=== PATIENT | male | born 1930 | race Caucasian/White ===

== ENCOUNTER 2016-03-22 22:54 | Emergency (ER) | payer MEDICARE ==
[~2016-03-22 22:54] MED LIST: ASPI81CH32 PO; ATOR1TAB18 PO; COUM2.5T11 PO; COUM2TAB10 PO; CRES40TA PO; DIOV80TA3 PO; DONE5TAB17 PO; ESOM1CAP5 PO; GLUCTAB6 PO; ISOS30TA4 PO; LASI40TA PO; MEMA1TAB2 PO; NEXI1CAP4 PO; OMEP40CA2 PO; PARO40TA PO; VITA100037 PO
[2016-03-23] MEDS ORDERED: OXYMETAZOLINE NASAL SPRAY (AFRIN) As Ordered ONE (01:16)
[2016-03-23] MEDS ORDERED: PHYTONADIONE 10MG/ML INJECTION (J3430) As Ordered ONE (01:34)
--- NOTE | 2016-03-23 03:03 | EDDOCDS ---
Physician Documentation [facility] Name: Ezequiel Dudley Age: 85 yrs Sex: Male : 1930 Arrival Date: 03/22/2016 Time: 22:54 Bed 12 Private MD: Yana Burris E Disposition: 03/23/16 02:44 Discharged to Home/Self Care. Impression: Epistaxis. - Condition is Stable. - Medication Reconciliation, Local Pharmacy Hours form. - Follow up: Yana Burris; When: 1 - 2 days; Reason: Recheck today's complaints. - Problem is new. - Symptoms have improved. - Notes: instill afrin into nasal gauze every 4 hours. withold coumadin for next day. Historical: - Allergies: No known drug Allergies; - Home Meds: 1. aspirin 81 mg Oral tab 1 tab once daily 2. Diovan 160 mg Oral tab 1 tab 2 times per day 3. Coumadin 2.5 mg oral tab 1.5 tab once daily varies depending on INR 4. Zocor 80 mg Oral tab daily 5. paroxetine HCl 40 mg Oral tab 1 tab once daily 6. Nexium 40 mg Oral cpDR 1 cap once daily 7. memantine 10 mg oral tab 1 tab daily 8. Isordil 30 mg Oral tab 1 tab daily 9. glucosamine-chondroitin 1500-1200mg oral tab twice a day 10. donepezil 5 mg oral TbDL 1 tab once daily 11. Iron CR Oral daily - PMHx: Atrial Fib; Dementia; GERD; Hypercholesterolemia; Hypertension; Pacemaker; blind in right eye; - PSHx: Nephrectomy- Right; HERNIA REPAIR; TURP; Knee Arthroplasty, Right; Cataract Surgery- Bilateral; Stents, Coronary; Colon Resection; Pacemaker Insertion; - Social history: Smoking status: Patient states former smoker of tobacco. No barriers to communication noted, The patient speaks fluent Pashto. - Family history: Not pertinent. - : The pt / caregiver states he / she is on anticoagulants: coumadin. Home medication list is obtained from the patient. - Exposure Risk Screening:: None identified. Vital Signs: 03/22 22:56 BP 158 / 89; Pulse 60; Resp 18 S; Temp 96.5(T); Pulse Ox 97% on R/A; Weight 77.56 kg / gr2 170.99 lbs (R); Height 5 ft. 7 in. (170.18 cm) (R); Pain 2/10; 03/23 03:00 BP 154 / 79; Pulse 67; Resp 18; Temp 98.6(T); Pulse Ox 94% on R/A; Pain 0/10; mlc 03/22 22:56 Body Mass Index 26.78 (77.56 kg, 170.18 cm) gr2 MDM: 03/22 23:03 Misc. Nursing Order ordered. [facility] 03/23 01:25 IV Saline Lock ordered. [facility] 01:25 Phytonadione 5 mg IVP once ordered. [facility] 01:38 Financial registration complete. [facility] Administered Medications: 01:45 Drug: Phytonadione 5 mg [phytonadione (vitamin K1) 10 mg/mL injection solution (0.5 mlc mL)] Route: IVP; Site: left antecubital; Signatures: Smith Alves DO DO [facility] Beatrice TolentinoRN RN [facility] [place] Radha Ahn [facility]
--- NOTE | 2016-03-23 03:03 | EDDOCDS ---
Nurse's Notes [facility] Name: Ezequiel Dudley Age: 85 yrs Sex: Male : 1930 Arrival Date: 03/22/2016 Time: 22:54 Bed 12 Private MD: Yana Burris E Diagnosis: Epistaxis Presentation: 03/22 23:05 Presenting complaint: Patient states: nose bleed since 21:00 this evening. pt has had a mlc cold symptoms recently, pt blew nose and nose started bleeding. no bleeding at this time. Adult Sepsis Screening: The patient does not have new or worsening altered mentation. Patient's respiratory rate is less than 22. Systolic blood pressure is greater than 100. Patient has a qSOFA score of 0- Negative Sepsis Screen. Suicide/Homicide risk assessment- the patient denies having any suicidal and/or homicidal ideations and does not present with any other emotional, behavioral or mental health complaints. Status: Patient is not a services tech or dependent. Transition of care: patient was not received from another setting of care. 23:05 Acuity: JIGAR Level 3 [facility] 23:05 Method Of Arrival: Walkin/Carried/Asstd mlc Triage Assessment: 23:15 General: Appears in no apparent distress, comfortable, Behavior is cooperative. Pain: mlc Denies pain. The patient is triaged at the bedside. See Assessment in Nurses Notes section of ED record. Neurological: Level of Consciousness is awake, obeys commands, Oriented to person, place. EENT: Nares with bleeding noted on left nasal clamp applied. Respiratory: Airway is patent Respiratory effort is even, unlabored, Respiratory pattern is regular. Derm: Skin is normal. Historical: - Allergies: No known drug Allergies; - Home Meds: 1. aspirin 81 mg Oral tab 1 tab once daily 2. Diovan 160 mg Oral tab 1 tab 2 times per day 3. Coumadin 2.5 mg oral tab 1.5 tab once daily varies depending on INR 4. Zocor 80 mg Oral tab daily 5. paroxetine HCl 40 mg Oral tab 1 tab once daily 6. Nexium 40 mg Oral cpDR 1 cap once daily 7. memantine 10 mg oral tab 1 tab daily 8. Isordil 30 mg Oral tab 1 tab daily 9. glucosamine-chondroitin 1500-1200mg oral tab twice a day 10. donepezil 5 mg oral TbDL 1 tab once daily 11. Iron CR Oral daily - PMHx: Atrial Fib; Dementia; GERD; Hypercholesterolemia; Hypertension; Pacemaker; blind in right eye; - PSHx: Nephrectomy- Right; HERNIA REPAIR; TURP; Knee Arthroplasty, Right; Cataract Surgery- Bilateral; Stents, Coronary; Colon Resection; Pacemaker Insertion; - Social history: Smoking status: Patient states former smoker of tobacco. No barriers to communication noted, The patient speaks fluent Brazilian. - Family history: Not pertinent. - : The pt / caregiver states he / she is on anticoagulants: coumadin. Home medication list is obtained from the patient. - Exposure Risk Screening:: None identified. Screenin:16 Screening information is obtained from the patient. Fall risk: At risk due to uses mlc walker. Assistance ADL's: requires no assistance with activities of daily living. Abuse/DV Screen: The patient / caregiver reports he/she is: not in a situation that causes fear, pain or injury. Nutritional screening: No deficits noted. Advance Directives: Currently, there is a health care proxy, Brooklyn Dudley, . There is an active DNR order but there is no copy available at this time. There is no living will. There is an active Power of Insurance Licensing Supervisor, Brooklyn Dudley, . home support is adequate. Assessment: 23:20 General: see triage assessment. [facility] 23:20 General: Appears in no apparent distress, comfortable, Behavior is cooperative, nose mlc clamp in place. pt resting in bed. resp easy//unlabored. pt offers no complaints. . 03/23 00:20 Reassessment: Patient appears in no apparent distress at this time. pt being wheeled to [facility] the bathroom, tolerated well. . 01:25 Reassessment: Patient appears in no apparent distress at this time. pt resting in bed, mlc resp easy/unlabored. Dr. Alves at bedside. 01:45 Reassessment: Patient appears in no apparent distress at this time. pt medicated per [facility] order. pt offers no complaints. nose clamp in place. 03:00 General: Appears in no apparent distress, comfortable, Behavior is cooperative. Pain: mlc Denies pain. Neurological: Level of Consciousness is awake, alert, Oriented to person, place, time. Respiratory: Airway is patent Respiratory effort is even, unlabored, Respiratory pattern is regular. Derm: Skin is pink, warm & dry. Vital Signs: 03/22 22:56 BP 158 / 89; Pulse 60; Resp 18 S; Temp 96.5(T); Pulse Ox 97% on R/A; Weight 77.56 kg gr2 (R); Height 5 ft. 7 in. (170.18 cm) (R); Pain 2/10; 03/23 03:00 BP 154 / 79; Pulse 67; Resp 18; Temp 98.6(T); Pulse Ox 94% on R/A; Pain 0/10; mlc 03/22 22:56 Body Mass Index 26.78 (77.56 kg, 170.18 cm) gr2 Vitals: 03/22 22:56 Log In Time: March 22, 2016 at 22:56. RN notified that patient meets Red Flag gr2 criteria. ED Course: 22:55 Patient visited by Pilar Gray. gr2 22:55 Patient moved to Waiting gr2 22:56 Yana Burris is Private Physician. gr2 23:00 Patient visited by Pilar Gray. gr2 23:00 Patient moved to Pre RCE gr2 23:01 Beatrice Tolentino RN is Primary Nurse. cz 23:01 Patient moved to 12 cz 23:02 Smith Alves DO is Attending Physician. cs11 23:02 Patient visited by Smith Alves DO. cs11 23:07 Triage Initiated mlc 23:18 Patient visited by Beatrice Tolentino RN. mlc 03/23 00:20 Patient visited by Beatrice Tolentino RN. mlc 01:23 Patient visited by Tangela Real PCA. edgar 01:26 Patient visited by Beatrice Tolentino RN. mlc 01:45 The patient / caregiver is instructed regarding the plan of care and ED course. mlc 01:45 Inserted saline lock: 20 gauge in left antecubital area The patient tolerated the mlc procedure well. 01:46 Patient visited by Beatrice Tolentino RN. mlc 02:43 Yana Burris is Referral Physician. cs11 02:45 Discontinued IV lock intact, bleeding controlled, pressure dressing applied, No mlc redness/swelling at site. Assist provider with nosebleed control using Afrin sprays, Bleeding from left nare. Set up for procedure. Performed by Smith Alves DO Bleeding stopped. Patient tolerated well. Administered Medications: 01:45 Drug: Phytonadione 5 mg [phytonadione (vitamin K1) 10 mg/mL injection solution (0.5 mlc mL)] Route: IVP; Site: left antecubital; Order Results: There are currently no results for this order. Outcome: :44 Discharge ordered by Provider. cs11 02:45 Discharge Assessment: Patient awake, alert and oriented x 3. No cognitive and/or mlc functional deficits noted. Patient verbalized understanding of disposition instructions. patient administered narcotics - no. The following High Risk Discharge criteria are identified: None. Discharged to home via wheelchair, with family. Condition: good Condition: stable. Discharge instructions given to patient, Instructed on discharge instructions, follow up and referral plans. medication usage, Demonstrated understanding of instructions, Pt was receptive of discharge instructions/ teaching. No special radiology studies were completed. Property sent home with patient. 03:02 Patient left the ED. mlc Signatures: Dilip Felder, RN Tangela Paris PCA PCA dre Schiff, Craig, DO DO cs11 Pilar Gray gr2 Beatrice Tolentino RN RN mlc MTDD
--- NOTE | 2016-03-25 04:03 | EDDOCDS ---
Physician Documentation [facility] Name: Ezequiel Dudley Age: 85 yrs Sex: Male : 1930 Arrival Date: 03/22/2016 Time: 22:54 Bed 12 Private MD: Yana Burris E Disposition: 03/23/16 02:44 Discharged to Home/Self Care. Impression: Epistaxis. - Condition is Stable. - Medication Reconciliation, Local Pharmacy Hours form. - Follow up: Yana Burris; When: 1 - 2 days; Reason: Recheck today's complaints. - Problem is new. - Symptoms have improved. - Notes: instill afrin into nasal gauze every 4 hours. withold coumadin for next day. Historical: - Allergies: No known drug Allergies; - Home Meds: 1. aspirin 81 mg Oral tab 1 tab once daily 2. Diovan 160 mg Oral tab 1 tab 2 times per day 3. Coumadin 2.5 mg oral tab 1.5 tab once daily varies depending on INR 4. Zocor 80 mg Oral tab daily 5. paroxetine HCl 40 mg Oral tab 1 tab once daily 6. Nexium 40 mg Oral cpDR 1 cap once daily 7. memantine 10 mg oral tab 1 tab daily 8. Isordil 30 mg Oral tab 1 tab daily 9. glucosamine-chondroitin 1500-1200mg oral tab twice a day 10. donepezil 5 mg oral TbDL 1 tab once daily 11. Iron CR Oral daily - PMHx: Atrial Fib; Dementia; GERD; Hypercholesterolemia; Hypertension; Pacemaker; blind in right eye; - PSHx: Nephrectomy- Right; HERNIA REPAIR; TURP; Knee Arthroplasty, Right; Cataract Surgery- Bilateral; Stents, Coronary; Colon Resection; Pacemaker Insertion; - Social history: Smoking status: Patient states former smoker of tobacco. No barriers to communication noted, The patient speaks fluent Lao. - Family history: Not pertinent. - : The pt / caregiver states he / she is on anticoagulants: coumadin. Home medication list is obtained from the patient. - Exposure Risk Screening:: None identified. Vital Signs: 03/22 22:56 BP 158 / 89; Pulse 60; Resp 18 S; Temp 96.5(T); Pulse Ox 97% on R/A; Weight 77.56 kg / gr2 170.99 lbs (R); Height 5 ft. 7 in. (170.18 cm) (R); Pain 2/10; 03/23 03:00 BP 154 / 79; Pulse 67; Resp 18; Temp 98.6(T); Pulse Ox 94% on R/A; Pain 0/10; mlc 03/22 22:56 Body Mass Index 26.78 (77.56 kg, 170.18 cm) gr2 MDM: 03/22 23:03 Misc. Nursing Order ordered. [facility] 03/23 01:25 IV Saline Lock ordered. [facility] 01:25 Phytonadione 5 mg IVP once ordered. [facility] 01:38 Financial registration complete. [facility] 03:36 [facility] Payment Agreement was scanned into [employer] and attached to record. [facility] 17:42 T-Sheet-- Draft Copy was scanned into [employer] and attached to record. klr Administered Medications: 01:45 Drug: Phytonadione 5 mg [phytonadione (vitamin K1) 10 mg/mL injection solution (0.5 mlc mL)] Route: IVP; Site: left antecubital; Signatures: Smith Alves, DO [facility] Beatrice TolentinoRN RN [facility] Radha Ahn [facility] Shantal Moe The chart was reviewed and I authenticate all verbal orders and agree with the evaluation and treatment provided.Attachments: 03:36 [facility] Payment Agreement [facility] 17:42 T-Sheet-- Draft Copy klr Chart Complete MTDD
--- NOTE | 2016-03-25 04:03 | EDDOCDS ---
Physician Documentation [facility] Name: Ezequiel Dudley Age: 85 yrs Sex: Male : 1930 Arrival Date: 03/22/2016 Time: 22:54 Bed 12 Private MD: Yana Burris E Disposition: 03/23/16 02:44 Discharged to Home/Self Care. Impression: Epistaxis. - Condition is Stable. - Medication Reconciliation, Local Pharmacy Hours form. - Follow up: Yana Burris; When: 1 - 2 days; Reason: Recheck today's complaints. - Problem is new. - Symptoms have improved. - Notes: instill afrin into nasal gauze every 4 hours. withold coumadin for next day. Historical: - Allergies: No known drug Allergies; - Home Meds: 1. aspirin 81 mg Oral tab 1 tab once daily 2. Diovan 160 mg Oral tab 1 tab 2 times per day 3. Coumadin 2.5 mg oral tab 1.5 tab once daily varies depending on INR 4. Zocor 80 mg Oral tab daily 5. paroxetine HCl 40 mg Oral tab 1 tab once daily 6. Nexium 40 mg Oral cpDR 1 cap once daily 7. memantine 10 mg oral tab 1 tab daily 8. Isordil 30 mg Oral tab 1 tab daily 9. glucosamine-chondroitin 1500-1200mg oral tab twice a day 10. donepezil 5 mg oral TbDL 1 tab once daily 11. Iron CR Oral daily - PMHx: Atrial Fib; Dementia; GERD; Hypercholesterolemia; Hypertension; Pacemaker; blind in right eye; - PSHx: Nephrectomy- Right; HERNIA REPAIR; TURP; Knee Arthroplasty, Right; Cataract Surgery- Bilateral; Stents, Coronary; Colon Resection; Pacemaker Insertion; - Social history: Smoking status: Patient states former smoker of tobacco. No barriers to communication noted, The patient speaks fluent Romanian. - Family history: Not pertinent. - : The pt / caregiver states he / she is on anticoagulants: coumadin. Home medication list is obtained from the patient. - Exposure Risk Screening:: None identified. Vital Signs: 03/22 22:56 BP 158 / 89; Pulse 60; Resp 18 S; Temp 96.5(T); Pulse Ox 97% on R/A; Weight 77.56 kg / gr2 170.99 lbs (R); Height 5 ft. 7 in. (170.18 cm) (R); Pain 2/10; 03/23 03:00 BP 154 / 79; Pulse 67; Resp 18; Temp 98.6(T); Pulse Ox 94% on R/A; Pain 0/10; mlc 03/22 22:56 Body Mass Index 26.78 (77.56 kg, 170.18 cm) gr2 MDM: 03/22 23:03 Misc. Nursing Order ordered. [facility] 03/23 01:25 IV Saline Lock ordered. [facility] 01:25 Phytonadione 5 mg IVP once ordered. [facility] 01:38 Financial registration complete. [facility] 03:36 [facility] Payment Agreement was scanned into [employer] and attached to record. [facility] 17:42 T-Sheet-- Draft Copy was scanned into [employer] and attached to record. klr Administered Medications: 01:45 Drug: Phytonadione 5 mg [phytonadione (vitamin K1) 10 mg/mL injection solution (0.5 mlc mL)] Route: IVP; Site: left antecubital; Signatures: Smith Alves, DO [facility] Beatrice TolentinoRN RN [facility] Radha Ahn [facility] Shantal Moe The chart was reviewed and I authenticate all verbal orders and agree with the evaluation and treatment provided.Attachments: 03:36 [facility] Payment Agreement [facility] 17:42 T-Sheet-- Draft Copy klr Chart Complete MTDD
--- NOTE | 2016-03-25 04:03 | EDDOCDS ---
Nurse's Notes [facility] Name: Ezequiel Dudley Age: 85 yrs Sex: Male : 1930 Arrival Date: 03/22/2016 Time: 22:54 Bed 12 Private MD: Yana Burris E Diagnosis: Epistaxis Presentation: 03/22 23:05 Presenting complaint: Patient states: nose bleed since 21:00 this evening. pt has had a mlc cold symptoms recently, pt blew nose and nose started bleeding. no bleeding at this time. Adult Sepsis Screening: The patient does not have new or worsening altered mentation. Patient's respiratory rate is less than 22. Systolic blood pressure is greater than 100. Patient has a qSOFA score of 0- Negative Sepsis Screen. Suicide/Homicide risk assessment- the patient denies having any suicidal and/or homicidal ideations and does not present with any other emotional, behavioral or mental health complaints. Status: Patient is not a hvac/r service technician or dependent. Transition of care: patient was not received from another setting of care. 23:05 Acuity: JIGAR Level 3 [facility] 23:05 Method Of Arrival: Walkin/Carried/Asstd mlc Triage Assessment: 23:15 General: Appears in no apparent distress, comfortable, Behavior is cooperative. Pain: mlc Denies pain. The patient is triaged at the bedside. See Assessment in Nurses Notes section of ED record. Neurological: Level of Consciousness is awake, obeys commands, Oriented to person, place. EENT: Nares with bleeding noted on left nasal clamp applied. Respiratory: Airway is patent Respiratory effort is even, unlabored, Respiratory pattern is regular. Derm: Skin is normal. Historical: - Allergies: No known drug Allergies; - Home Meds: 1. aspirin 81 mg Oral tab 1 tab once daily 2. Diovan 160 mg Oral tab 1 tab 2 times per day 3. Coumadin 2.5 mg oral tab 1.5 tab once daily varies depending on INR 4. Zocor 80 mg Oral tab daily 5. paroxetine HCl 40 mg Oral tab 1 tab once daily 6. Nexium 40 mg Oral cpDR 1 cap once daily 7. memantine 10 mg oral tab 1 tab daily 8. Isordil 30 mg Oral tab 1 tab daily 9. glucosamine-chondroitin 1500-1200mg oral tab twice a day 10. donepezil 5 mg oral TbDL 1 tab once daily 11. Iron CR Oral daily - PMHx: Atrial Fib; Dementia; GERD; Hypercholesterolemia; Hypertension; Pacemaker; blind in right eye; - PSHx: Nephrectomy- Right; HERNIA REPAIR; TURP; Knee Arthroplasty, Right; Cataract Surgery- Bilateral; Stents, Coronary; Colon Resection; Pacemaker Insertion; - Social history: Smoking status: Patient states former smoker of tobacco. No barriers to communication noted, The patient speaks fluent Emirati. - Family history: Not pertinent. - : The pt / caregiver states he / she is on anticoagulants: coumadin. Home medication list is obtained from the patient. - Exposure Risk Screening:: None identified. Screenin:16 Screening information is obtained from the patient. Fall risk: At risk due to uses mlc walker. Assistance ADL's: requires no assistance with activities of daily living. Abuse/DV Screen: The patient / caregiver reports he/she is: not in a situation that causes fear, pain or injury. Nutritional screening: No deficits noted. Advance Directives: Currently, there is a health care proxy, Brooklyn Dudley, . There is an active DNR order but there is no copy available at this time. There is no living will. There is an active Power of Digital Traffic Coordinator, Brooklyn Dudley, . home support is adequate. Assessment: 23:20 General: see triage assessment. [facility] 23:20 General: Appears in no apparent distress, comfortable, Behavior is cooperative, nose mlc clamp in place. pt resting in bed. resp easy//unlabored. pt offers no complaints. . 03/23 00:20 Reassessment: Patient appears in no apparent distress at this time. pt being wheeled to [facility] the bathroom, tolerated well. . 01:25 Reassessment: Patient appears in no apparent distress at this time. pt resting in bed, mlc resp easy/unlabored. Dr. Alves at bedside. 01:45 Reassessment: Patient appears in no apparent distress at this time. pt medicated per [facility] order. pt offers no complaints. nose clamp in place. 03:00 General: Appears in no apparent distress, comfortable, Behavior is cooperative. Pain: mlc Denies pain. Neurological: Level of Consciousness is awake, alert, Oriented to person, place, time. Respiratory: Airway is patent Respiratory effort is even, unlabored, Respiratory pattern is regular. Derm: Skin is pink, warm & dry. Vital Signs: 03/22 22:56 BP 158 / 89; Pulse 60; Resp 18 S; Temp 96.5(T); Pulse Ox 97% on R/A; Weight 77.56 kg gr2 (R); Height 5 ft. 7 in. (170.18 cm) (R); Pain 2/10; 03/23 03:00 BP 154 / 79; Pulse 67; Resp 18; Temp 98.6(T); Pulse Ox 94% on R/A; Pain 0/10; mlc 03/22 22:56 Body Mass Index 26.78 (77.56 kg, 170.18 cm) gr2 Vitals: 03/22 22:56 Log In Time: March 22, 2016 at 22:56. RN notified that patient meets Red Flag gr2 criteria. ED Course: 22:55 Patient visited by Pilar Gray. gr2 22:55 Patient moved to Waiting gr2 22:56 Yana Burris is Private Physician. gr2 23:00 Patient visited by Pilar Gray. gr2 23:00 Patient moved to Pre RCE gr2 23:01 Beatrice Tolentino RN is Primary Nurse. cz 23:01 Patient moved to 12 cz 23:02 Smith Alves DO is Attending Physician. cs11 23:02 Patient visited by Smith Alves DO. cs11 23:07 Triage Initiated mlc 23:18 Patient visited by Beatrice Tolentino RN. mlc 03/23 00:20 Patient visited by Beatrice Tolentino RN. mlc 01:23 Patient visited by Tangela Real PCA. edgar 01:26 Patient visited by Beatrice Tolentino RN. mlc 01:45 The patient / caregiver is instructed regarding the plan of care and ED course. mlc 01:45 Inserted saline lock: 20 gauge in left antecubital area The patient tolerated the mlc procedure well. 01:46 Patient visited by Beatrice Tolentino RN. mlc 02:43 Yana Burris is Referral Physician. cs11 02:45 Discontinued IV lock intact, bleeding controlled, pressure dressing applied, No mlc redness/swelling at site. Assist provider with nosebleed control using Afrin sprays, Bleeding from left nare. Set up for procedure. Performed by Smith Alves DO Bleeding stopped. Patient tolerated well. 03:36 [facility] Payment Agreement was scanned into [employer] and attached to record. [facility] 17:42 T-Sheet-- Draft Copy was scanned into [employer] and attached to record. [facility] Administered Medications: 01:45 Drug: Phytonadione 5 mg [phytonadione (vitamin K1) 10 mg/mL injection solution (0.5 mlc mL)] Route: IVP; Site: left antecubital; Order Results: There are currently no results for this order. Outcome: 02:44 Discharge ordered by Provider. 11 02:45 Discharge Assessment: Patient awake, alert and oriented x 3. No cognitive and/or mlc functional deficits noted. Patient verbalized understanding of disposition instructions. patient administered narcotics - no. The following High Risk Discharge criteria are identified: None. Discharged to home via wheelchair, with family. Condition: good Condition: stable. Discharge instructions given to patient, Instructed on discharge instructions, follow up and referral plans. medication usage, Demonstrated understanding of instructions, Pt was receptive of discharge instructions/ teaching. No special radiology studies were completed. Property sent home with patient. 03:02 Patient left the ED. mlc Signatures: Dilip Felder, RN RN Tangela Hernandez, STRAIGHTENING ROLL OPERATOR STRAIGHTENING ROLL OPERATOR Smith Gallo, DO DO cs11 Pilar Gray gr2 Beatrice Tolentino RN RN mlc Hook, Sandra Shantal Tomas Chart Complete MTDD
== END 2016-03-23 03:02 | disposition home or self-care (01) ==
LOC: M ED 22:54
DX: R04.0 Epistaxis (principal); I10 Essential (primary) hypertension; I48.91 Unspecified atrial fibrillation; K21.9 Gastro-esophageal reflux disease without esophagitis; E78.00 Pure hypercholesterolemia, unspecified; F03.90 Unspecified dementia, unspecified severity, without behavioral disturbance, psychotic disturbance, mood disturbance, and anxiety; Z95.0 Presence of cardiac pacemaker; Z95.5 Presence of coronary angioplasty implant and graft; Z79.899 Other long term (current) drug therapy; Z79.01 Long term (current) use of anticoagulants; Z79.82 Long term (current) use of aspirin
CPT/HCPCS: 96374; 99284; J3430

== ENCOUNTER 2016-03-24 15:30 | Emergency (ER) | payer MEDICARE | END 2016-03-24 16:00 | disposition left against medical advice (07) | LOC: M ED 15:30 | DX: Z53.29 Procedure and treatment not carried out because of patient's decision for other reasons (principal) ==

== ENCOUNTER → 2016-03-24 | Outpatient (REF) | payer MEDICARE ==
[2016-03-24 19:48] LABS: INR 1.13
== END ==
LOC: M LAB REF 16:23
PROVIDERS: ATTEND Internal Medicine
DX: Z51.81 Encounter for therapeutic drug level monitoring (principal); Z79.01 Long term (current) use of anticoagulants; I48.2 Chronic atrial fibrillation

== ENCOUNTER 2017-01-30 15:39 | Inpatient (IN) | payer MEDICARE ==
[~2017-01-30] VITALS: Ht 170.2 cm; Wt 75.5 kg
[~2017-01-30 15:39] MED LIST changes: -ATOR1TAB18 PO; +ATOR80TA59 PO; -COUM2.5T11 PO; +COUM2.5T17 PO; -COUM2TAB10 PO; +COUM2TAB22 PO; -PARO40TA PO; +PARO40TA2 PO; -VITA100037 PO; +VITA100067 PO
[2017-01-30] MEDS ORDERED: FERR83TA2 PO (16:01)
[2017-01-30] MEDS ORDERED: MULT1TAB10 PO (16:01)
[2017-01-30] MEDS ORDERED: CHON150C PO (16:01)
[2017-01-30] MEDS ORDERED: FURO40TA2 PO (16:01)
[2017-01-30] MEDS ORDERED: VITA100066 PO (16:01)
[2017-01-30] MEDS ORDERED: ONDANSETRON 4MG/2ML VIAL (J2405) IV ONE (16:30)
[2017-01-30] MEDS ORDERED: MORPHINE 2 MG/ML 1ML SYRINGE IV PRN (16:30)
[2017-01-30] MEDS ORDERED: NS 1,000 ML IV ONE (16:30)
[2017-01-30 16:50] LABS: BASO % 0.1 % (0.0-1.0); IMMATURE GRANULOCYTE % 0.6 % (0-0); LYMPH % 1.6 % (24.0-44.0); MEAN CORPUSCULAR HEMOGLOBIN 31.1 pg (27.0-33.0); MEAN CORPUSCULAR VOLUME 97.1 fl (80.0-96.0); MONO % 9.4 % (0.0-5.0); NEUTROPHILS # 9.3 10^3/uL (1.8-7.7); NEUTROPHILS % 88.3 % (36.0-66.0); PLATELET COUNT, AUTOMATED 157 10^3/uL (150-450); RED CELL DISTRIBUTION WIDTH 14.6 % (11.5-14.5); WHITE BLOOD COUNT 10.5 10^3/uL (4.0-10.0)
[2017-01-30 16:55] LABS: INR 2.95
--- NOTE | 2017-01-30 16:59 | REP ---
CT Head without contrast HISTORY: Trauma COMPARISON: 07/16/2014 Areas of decreased attenuation are present in the periventricular and subcortical white matter. This represents small-vessel ischemic disease. There is no intraparenchymal hemorrhage, acute infarct, mass or midline shift. The ventricular system and cortical sulci as well as subarachnoid space in the posterior fossa are dilated consistent with moderate volume loss. There is no extra cerebral collection. There is no fracture. The visualized sinuses are clear. IMPRESSION: 1. Small vessel ischemic disease. 2. Moderate volume loss. Signed by Cosmo York MD 01/30/2017 04:51 P
[2017-01-30 17:02] LABS: LYMPH # 0.2 10^3/uL (1.5-4.5); POSITIVE DIFF POS FLAG
[2017-01-30 17:12] LABS: ALKALINE PHOSPHATASE 107 U/L (45-117); ALT/SGPT 25 U/L (12-78); AMYLASE 58 U/L (25-115); AST/SGOT 53 U/L (7-37); BILIRUBIN,DIRECT 0.3 MG/DL (0.0-0.2); BILIRUBIN,TOTAL 1.1 MG/DL (0.2-1.0); BLOOD UREA NITROGEN 17 MG/DL (7-18); CALCIUM LEVEL 7.8 MG/DL (8.8-10.2); CARBON DIOXIDE LEVEL 29 MEQ/L (21-32); CHLORIDE LEVEL 109 MEQ/L (98-107); CREATININE FOR GFR 0.96 MG/DL (0.70-1.30); GLUCOSE, FASTING 119 MG/DL (83-110); POTASSIUM SERUM 3.7 MEQ/L (3.5-5.1); TOTAL PROTEIN 6.6 GM/DL (6.4-8.2)
[2017-01-30 17:30] LABS: ANION GAP 7 MEQ/L (8-16); SODIUM LEVEL 145 MEQ/L (136-145)
[2017-01-30 17:31] LABS: ALBUMIN 2.7 GM/DL (3.2-5.2); ALBUMIN/GLOBULIN RATIO 0.69 (1.00-1.93)
--- NOTE | 2017-01-30 17:31 | REP ---
Chest one-view HISTORY: Trauma Comparison: 02/20/2016 The lungs are hyperinflated. The lungs are clear. The cardiac silhouette is enlarged. The pulmonary vasculature is normal in appearance. A cardiac pacemaker is present. Impression: Cardiomegaly. Signed by Cosmo York MD 01/30/2017 05:22 P
[2017-01-30] MEDS ORDERED: METAL LOCK LOOP XX ONE (17:48)
--- NOTE | 2017-01-30 17:55 | REP ---
AP PELVIS ONE VIEW: HISTORY: Trauma. There is no acute fracture or dislocation. There is narrowing of the joint spaces with associated sclerosis of the acetabulum. The bony structure is osteopenic. IMPRESSION:There is no acute fracture or dislocation. Signed by Cosmo York MD 01/30/2017 06:53 P
--- NOTE | 2017-01-30 17:56 | REP ---
LEFT FEMUR TWO VIEWS: HISTORY: Trauma. The proximal femur is not seen. There is no acute fracture or dislocation . The knee joint space is poorly seen. IMPRESSION: There is no acute fracture or dislocation. Signed by Cosmo York MD 01/30/2017 06:53 P
--- NOTE | 2017-01-30 17:57 | REP ---
LEFT HIP TWO VIEWS: HISTORY: Trauma. There is no acute fracture or dislocation. There is narrowing of the joint space with associated sclerosis. Calcification is present lateral to the femoral head. This represents ligamentous or tendon calcification. The bony structure is osteopenic. IMPRESSION: There is no acute fracture or dislocation. Signed by Cosmo York MD 01/30/2017 06:53 P
--- NOTE | 2017-01-30 17:59 | REP ---
LEFT KNEE, FOUR VIEWS: HISTORY: Trauma. There is no acute fracture or dislocation. There is narrowing of the joint spaces. Osteophytes are present on the femur , tibia and patella. Chondrocalcinosis is present. A suprapatellar joint effusion is present. The bony structure is osteopenic. IMPRESSION: Degenerative change as described above. Signed by Cosmo York MD 01/30/2017 06:54 P
--- NOTE | 2017-01-30 18:00 | REP ---
LEFT TIBIA FIBULA FOUR VIEWS: HISTORY: Trauma. There is no acute fracture or dislocation. There is narrowing of the joint spaces. Osteophytes are present on the femur, tibia, and patella. Chondrocalcinosis is present. The ankle joint space is normal in appearance. An ossified density is present inferior to the medial malleolus. This represents ligamentous or tendon calcification. The bony structure is osteopenic. IMPRESSION:There is no acute fracture or dislocation. Signed by Cosmo York MD 01/30/2017 06:54 P
[2017-01-30] MEDS ORDERED: VALS1TAB47 PO (18:10)
[2017-01-30] MEDS ORDERED: OMEP20CA3 PO (18:10)
[2017-01-30] MEDS ORDERED: WARF-23 PO ×2 (18:10)
[2017-01-30] MEDS ORDERED: PRESCAP PO (18:10)
[2017-01-30] MEDS ORDERED: ASPI1TAB15 PO (18:10)
[2017-01-30] MEDS ORDERED: ONDANSETRON 4MG/2ML VIAL (J2405) IV PRN (19:15)
--- NOTE | 2017-01-30 21:09 | HPEPDOC ---
General Date of Admission Jan 30, 2017 at 19:04 Attending Physician: SPENCER SALGUERO MD Chief Complaint The patient is a 86-year-old male admitted with a reason for visit of FALL. History of Present Illness 86-[facility], dyslipidemia, atrial fibrillation on Coumadin, CAD, and dementia presented to the ER following a mechanical fall. According to the patient's and son who were at the bedside , the patient fell backwards when he was trying to sit down in his bed landing on his tailbone. The fall was not witnessed, as the patient's was in the other room. The patient's recollection of the events is limited given his underlying dementia. The patient denies any prodromal symptoms of lightheadedness, dizziness, chest pain, palpitations, or any abdominal pain. At baseline, the patient is able to ambulate with a rolling walker. However, following the fall the patient's left knee was noted to be in pain, and he was unable to bear any weight. The patient was subsequently brought to the ER for further evaluation. In the ER, multiple x-ray imaging studies revealed no acute fractures. However, the patient was noted to have a suprapatellar joint effusion on the left knee. At this time, patient will be admitted under the hospitalist service for further functional optimization. A consult has been placed orthopedic surgery for further evaluation of the left knee joint effusion. Home Medications Scheduled (Glucosamine Chondroitin) 1 Tab Tab, 1 TAB PO BID, (Reported) (Preservision Areds) 1 Cap Cap, 2 CAP PO BID, (Reported) Aspirin (Aspirin) 81 Mg Tab, 81 MG PO DAILY, (Reported) Atorvastatin Calcium (Atorvastatin Calcium) 80 Mg Tab, 80 MG PO QHS, (Reported) Cholecalciferol (Vitamin D) 1,000 Unit Tab, 1,000 UNIT PO DAILY, (Reported) Donepezil Hydrochloride (Donepezil HCl) 5 Mg Tab, 5 MG PO QHS, (Reported) Ferrous Sulfate (Ferrous Sulfate) 27 Mg Tab, 27 MG PO DAILY, (Reported) Furosemide (Furosemide) 40 Mg Tab, 40 MG PO DAILY, (Reported) Isosorbide Mononitrate (Isosorbide Mononitrate ER) 30 Mg Tab, 30 MG PO DAILY, ( Reported) Memantine Hydrochloride (Memantine HCl) 10 Mg Tab, 10 MG PO QHS, (Reported) Multivitamins (Multivitamin Adults) 1 Tab Tab, 1 TAB PO DAILY, (Reported) Omeprazole (Omeprazole) 20 Mg Cap, 40 MG PO DAILY, (Reported) Paroxetine (Paroxetine HCl) 40 Mg Tab, 40 MG PO DAILY, (Reported) Valsartan (Valsartan) 160 Mg Tab, 160 MG PO BID, (Reported) Warfarin Sod (Warfarin Sodium) 5 Mg Tab, 7.5 MG PO 5XW, (Reported) THU, , THU, THU, THU Warfarin Sod (Warfarin Sodium) 5 Mg Tab, 5 MG PO 2XW, (Reported) THURSDAY & THURSDAY Allergies Coded Allergies: No Known Drug Allergy (Unverified Allergy, Unknown, 07/16/14) Past Medical History Medical History As noted in HPI. Social History * Smoker: Denies Alcohol: Denies Drugs: denies Lives at home with his . Ambulates with a rolling walker/cane at baseline. Is functionally dependent on family Review of Symptoms Other systems 10 point review of systems negative unless otherwise specified in HPI. Physical Examination General Exam: Positive: Alert, Cooperative, No Acute Distress ENT Exam: Positive: Atraumatic, Mucous membr. moist/pink Neck Exam: Negative: JVD Chest Exam: Positive: Clear to auscultation, Normal air movement Heart Exam: Positive: Rate Normal, Normal S1, Normal S2 Abdomen Exam: Positive: Soft, Negative: Tenderness Extremity Exam: Positive: Swelling, Negative: Tenderness (Left Knee noted to be swollen, with some limitation in ROM 2/2 swelling. Neurovascularly intact distally.) Vital Signs Vital Signs Date Time Temp Pulse Resp B/P (MAP) Pulse Ox O2 Delivery O2 Flow Rate FiO2 01/30/17 20:42 99.3 94 16 154/77 (102) 94 Room Air Laboratory Data Labs 24H Laboratory Tests 2 01/30/17 16:32: Immature Granulocyte % (Auto) 0.6H, White Blood Count 10.5H, Red Blood Count 3.83L, Hemoglobin 11.9L, Hematocrit 37.2L, Mean Corpuscular Volume 97.1H, Mean Corpuscular Hemoglobin 31.1, Mean Corpuscular Hemoglobin Concent 32.0, Red Cell Distribution Width 14.6H, Platelet Count 157, Neutrophils (%) (Auto) 88.3H, Lymphocytes (%) (Auto) 1.6L, Monocytes (%) (Auto) 9.4H, Eosinophils (%) (Auto) 0.0, Basophils (%) (Auto) 0.1, Neutrophils # (Auto) 9.3H, Lymphocytes # (Auto) 0.2L, Monocytes # (Auto) 1.0H, Eosinophils # (Auto) 0.0, Basophils # (Auto) 0.0 , Immature Granulocyte # (Auto) 0.1H, Nucleated Red Blood Cells % (auto) 0.0, Prothrombin Time 32.0H, Prothromb Time International Ratio 2.95, Activated Partial Thromboplast Time 53.6H, Anion Gap 7L, Calcium Level 7.8L, Aspartate Amino Transf (AST/SGOT) 53H, Alanine Aminotransferase (ALT/SGPT) 25, Alkaline Phosphatase 107, Total Bilirubin 1.1H, Direct Bilirubin 0.3H, Total Creatine Kinase 991H, Creatine Kinase MB 14.4H, Creatine Kinase MB Relative Index 1.45, Troponin I 0.03, Total Protein 6.6, Albumin 2.7L, Albumin/Globulin Ratio 0.69L, Amylase Level 58, Lipase 90 CBC/BMP Laboratory Tests 01/30/17 16:32 Red Blood Count 3.83 L, Mean Corpuscular Volume 97.1 H, Mean Corpuscular Hemoglobin 31.1, Mean Corpuscular Hemoglobin Concent 32.0, Red Cell Distribution Width 14.6 H, Neutrophils (%) (Auto) 88.3 H, Lymphocytes (%) (Auto ) 1.6 L, Monocytes (%) (Auto) 9.4 H, Eosinophils (%) (Auto) 0.0, Basophils (%) ( Auto) 0.1, Neutrophils # (Auto) 9.3 H, Lymphocytes # (Auto) 0.2 L, Monocytes # ( Auto) 1.0 H, Eosinophils # (Auto) 0.0, Basophils # (Auto) 0.0 Plan / VTE VTE Prophylaxis Ordered?: Yes Plan Plan Left Knee Pain 2/2 Mechanical Fall X-ray Imaging negative for any acute fractures Suprapatellar joint effusion noted on x-ray of the left knee Orthopedic surgery has been consulted for further evaluation The patient's left knee has been placed in a splint in the ER We will withhold any activity orders and physical therapy evaluation until cleared by orthopedic surgery MRI of the left knee ordered for further evaluation Atrial fibrillation Patient not on any rate controlling agents INR is therapeutic on current dose of Coumadin We will withhold further Coumadin dosing until after MRI is obtained Dyslipidemia Continue statin Hx of CAD Will hold ASA until MRI of the Knee study is complete and patient is evaluated by Ortho, in case the patient requires arthrocentesis Cont Statin, valsartan Hypertension, stable continue regimen as ordered GERD Continue PPI Dementia Continue donepezil DVT prophylaxis INR therapeutic on Coumadin The patient will be admitted under the service of Dr. Salguero, who will begin to follow the patient on 01/31/17 at 7am. LINETTE WEBSTER MD Jan 30, 2017 21:09
[2017-01-30] MEDS: DONEPEZIL 5 MG TAB PO SCH (21:57)
[2017-01-30] MEDS: VALSARTAN 80 MG TAB (DIOVAN) PO SCH (21:58)
[2017-01-30] MEDS: ATORVASTATIN 20 MG TAB PO SCH (21:58)
[2017-01-30 22:00] VITALS: BP 157/74
[2017-01-31 06:00] VITALS: BP 134/67
[2017-01-31 06:15] LABS: MEAN CORPUSCULAR HEMOGLOBIN 30.9 pg (27.0-33.0); MEAN CORPUSCULAR HGB CONC 32.5 g/dl (32.0-36.5); MEAN CORPUSCULAR VOLUME 95.1 fl (80.0-96.0); PLATELET COUNT, AUTOMATED 145 10^3/uL (150-450); RED CELL DISTRIBUTION WIDTH 14.6 % (11.5-14.5); WHITE BLOOD COUNT 9.6 10^3/uL (4.0-10.0)
[2017-01-31 06:37] LABS: ALBUMIN 2.2 GM/DL (3.2-5.2); ALBUMIN/GLOBULIN RATIO 0.51 (1.00-1.93); ALKALINE PHOSPHATASE 89 U/L (45-117); ALT/SGPT 20 U/L (12-78); ANION GAP 6 MEQ/L (8-16); AST/SGOT 35 U/L (7-37); BILIRUBIN,TOTAL 1.2 MG/DL (0.2-1.0); BLOOD UREA NITROGEN 17 MG/DL (7-18); CALCIUM LEVEL 8.1 MG/DL (8.8-10.2); CARBON DIOXIDE LEVEL 28 MEQ/L (21-32); CHLORIDE LEVEL 111 MEQ/L (98-107); CREATININE FOR GFR 0.83 MG/DL (0.70-1.30); GLOMERULAR FILTRATION RATE > 60.0 (>35); GLUCOSE, FASTING 100 MG/DL (83-110); INR 3.96; POTASSIUM SERUM 3.7 MEQ/L (3.5-5.1); SODIUM LEVEL 145 MEQ/L (136-145); TOTAL PROTEIN 6.5 GM/DL (6.4-8.2)
[2017-01-31 07:21] LABS: MAGNESIUM LEVEL 0.7 MG/DL (1.8-2.4)
[2017-01-31] MEDS: MAG SULF 1GM/100ML (MAG RUN) 1 GM in APPROPRIATE DILUENT 1 EA IV SCH ×3 (08:00→11:40)
[2017-01-31] MEDS: VALSARTAN 80 MG TAB (DIOVAN) PO SCH ×2 (08:54→20:03)
[2017-01-31] MEDS: ISOSORBIDE MON. (IMDUR) 30 MG XR TAB PO SCH (08:55)
[2017-01-31] MEDS: PARoxetine 20 MG TAB PO SCH (08:55)
[2017-01-31] MEDS: OMEPRAZOLE 20 MG CAP PO SCH (08:55)
[2017-01-31] MEDS: MULTIVITAMINS/MINERALS THERAP 1 TAB PO SCH (08:55)
[2017-01-31] MEDS: VITAMIN D 1,000 INTERNATIONAL UNITS TABLET PO SCH (08:55)
[2017-01-31] MEDS: FUROSEMIDE 40 MG TAB PO SCH (08:55)
[2017-01-31 09:21] LABS: PHOSPHORUS LEVEL 2.4 MG/DL (2.5-4.9)
--- NOTE | 2017-01-31 09:29 | IPNPDOC ---
Text Note Date of Service The patient was seen on 01/31/17. NOTE Subjective: Patient seen and examined at bedside. No acute overnight events. No new medical complaints this morning. Objective: General: NAD, lying comfortably in bed, somewhat disheveled HEENT: NC/AT, EOMI Lungs: CTA B/L Heart: +S1S2 Abd: soft, NT, +BS Ext: left leg brace Psych: AAOx3 Assessment/Plan: #Left Knee Pain 2/2 Mechanical Fall - X-ray Imaging negative for any acute fractures - Suprapatellar joint effusion noted on x-ray of the left knee - Orthopedic surgery pending arthrocentesis for likely hemarthrosis, assistance appreciated #Atrial fibrillation - Patient not on any rate controlling agents - INR is supratherapeutic - hold coumadin #hypomagnesemia - IV repletion - continue to follow #Dyslipidemia - Continue statin #Hx of CAD - ASA on hold Cont Statin, valsartan #Hypertension, stable continue regimen as ordered #GERD Continue PPI #Dementia Continue donepezil #DVT prophylaxis INR therapeutic on Coumadin VS,Fishbone, I+O VS, Fishbone, I+O Laboratory Tests 01/30/17 16:32 Red Blood Count 3.83 L, Mean Corpuscular Volume 97.1 H, Mean Corpuscular Hemoglobin 31.1, Mean Corpuscular Hemoglobin Concent 32.0, Red Cell Distribution Width 14.6 H, Neutrophils (%) (Auto) 88.3 H, Lymphocytes (%) (Auto ) 1.6 L, Monocytes (%) (Auto) 9.4 H, Eosinophils (%) (Auto) 0.0, Basophils (%) ( Auto) 0.1, Neutrophils # (Auto) 9.3 H, Lymphocytes # (Auto) 0.2 L, Monocytes # ( Auto) 1.0 H, Eosinophils # (Auto) 0.0, Basophils # (Auto) 0.0 01/31/17 05:44 Red Blood Count 3.46 L, Mean Corpuscular Volume 95.1, Mean Corpuscular Hemoglobin 30.9, Mean Corpuscular Hemoglobin Concent 32.5, Red Cell Distribution Width 14.6 H, Calcium Level 8.1 L, Phosphorus Level 2.4 L, Aspartate Amino Transf (AST/SGOT) 35, Alanine Aminotransferase (ALT/SGPT) 20, Alkaline Phosphatase 89, Total Bilirubin 1.2 H, Total Protein 6.5, Albumin 2.2 L Vital Signs Date Time Temp Pulse Resp B/P (MAP) Pulse Ox O2 Delivery O2 Flow Rate FiO2 01/31/17 08:54 147/75 01/31/17 06:00 98.0 69 20 94 Room Air SPENCER SALGUERO MD Jan 31, 2017 09:29
--- NOTE | 2017-01-31 10:50 | ECGEPIP ---
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
[2017-01-31 10:53] LABS: CRYSTALS, BODY FLUID CA PYROPHOSPHATE (NONE SEEN)
[2017-01-31 10:59] LABS: URIC ACID, BODY FLUID 7.8 MG/DL (NOT ESTABLISHED)
[2017-01-31 11:49] LABS: BF MONONUCLEAR CELL % 6.8 % (0-0); BF POLYMORPHONUCLEAR CELL % 93.2 % (0-0); RBC BODY FLUID 2 10^3/uL (<2)
[2017-01-31 12:00] LABS: SYNOVIAL FLUID COLOR YELLOW (YELLOW); WBC BODY FLUID 45140 /uL (0-10)
[2017-01-31 12:01] LABS: BF DIFF IF INDICATED? YES (NO)
[2017-01-31 13:29] LABS: HCT SOURCE LFT KNEE
[2017-01-31 14:00] VITALS: BP 136/69
--- NOTE | 2017-01-31 19:55 | CR ---
DATE OF CONSULTATION: 01/31/2017 REASON FOR CONSULTATION: Left knee effusion. CONSULTING PHYSICIAN: Dr. Cosmo Livingston. CHIEF COMPLAINT: Left knee pain. HISTORY OF PRESENT ILLNESS: Ezequiel Dudley is an 86-year-old male, a home ambulator, who was attempting to sit down on his bed and slipped and fell onto his buttocks. He presented to the emergency room secondary to the fall and pain. On presentation to the emergency room, his main complaint was left knee pain and effusion. The patient was admitted to the hospitalist service for initial physical therapy and workup of his effusion. He has had negative x-rays. The patient is on Coumadin for atrial fibrillation and had a supratherapeutic international normalized ratio (INR). Orthopedics was consulted for management of his knee effusion. The patient denies any antecedent fever, chills, night sweats, or other constitutional symptoms. He denied any antecedent dizziness, chest pain, calf pain, or shortness of breath prior to his fall. He localizes pain to the left knee. Denies any history of gout or pseudogout. PAST MEDICAL HISTORY: Significant for hypertension, dyslipidemia, atrial fibrillation, coronary artery disease, dementia. MEDICATIONS: Aspirin, atorvastatin, vitamin D, donepezil, iron supplementation, Lasix, memantine, multivitamin, omeprazole, paroxetine, valsartan, and Coumadin. ALLERGIES: No known drug allergies. PAST SURGICAL HISTORY: Significant for right total knee arthroplasty. FAMILY HISTORY: Noncontributory. SOCIAL HISTORY: The patient lives at home with his . He is a home ambulator with a rolling walker and a cane. He is dependent on family members for activities of daily living and intermediate activities of daily living. REVIEW OF SYSTEMS: A 14-point review of systems was reviewed and unremarkable. PHYSICAL EXAMINATION: VITAL SIGNS: Temperature 98, heart rate 69, blood pressure 134/67, respiratory rate 20, oxygen saturation 94% on room air. GENERAL: This a well-nourished male appears his stated age, no acute distress. NEUROLOGIC: He is awake, alert, and oriented to person, place and time. He has intact sensory and motor function in his left lower extremity tibial, sural, saphenous, superficial, peroneal, and deep peroneal nerve distributions. SKIN: There are no open wounds or abrasions. MUSCULOSKELETAL: Physical exam of the left knee demonstrates a tense effusion about the left knee. There is no surrounding erythema, induration or drainage. The patient is able to perform a straight leg raise and has active knee range of motion from zero to 80 degrees. He has no pain with axial load of the knee. He has some diffuse tenderness about the medial and lateral joint line and ligamentously stable exam. RADIOGRAPHS: Plain radiographs of the hip, knee, pelvis and tibia demonstrate no evidence of fracture. ASSESSMENT: This is an 86-year-old male with left knee effusion. Differential diagnosis includes acute hemarthrosis, septic arthritis, gout and pseudogout. Given his mechanism of injury, it is unlikely that his knee effusion is directly related to his fall. However, I recommend synovial fluid analysis to determine the nature of the knee effusion. The patient provided verbal consent for a left knee diagnostic arthrocentesis. An arthrocentesis was performed at the bedside where approximately 50 mL of slightly cloudy yellow fluid were aspirated from the knee and was sent for synovial fluid cell count, cultures and crystals, and results demonstrated 45,140 white blood cells with positive calcium pyrophosphate crystals. The Gram's stain was negative. Given his laboratory findings, final diagnosis is pseudogout. Patient was counseled that this is likely to be self-limiting. He may be weightbearing as tolerated to the left lower extremity. I recommend symptomatic treatment with daily physical therapy for ambulation and oral pain medication. No further orthopedic surgical intervention is required. Thank you for the consult on this very pleasant patient. FELY
[2017-01-31] MEDS: DONEPEZIL 5 MG TAB PO SCH (20:03)
[2017-01-31] MEDS: ATORVASTATIN 20 MG TAB PO SCH (20:03)
[2017-01-31] MEDS: ACETAMINOPHEN TAB 650MG DOSE (2X325MG) PO PRN (20:05)
[2017-01-31 22:00] VITALS: BP 164/72
[2017-02-01 06:00] VITALS: BP 145/71
[2017-02-01 06:11] LABS: MEAN CORPUSCULAR HEMOGLOBIN 30.9 pg (27.0-33.0); MEAN CORPUSCULAR HGB CONC 32.3 g/dl (32.0-36.5); MEAN CORPUSCULAR VOLUME 95.6 fl (80.0-96.0); PLATELET COUNT, AUTOMATED 161 10^3/uL (150-450); RED CELL DISTRIBUTION WIDTH 14.6 % (11.5-14.5); WHITE BLOOD COUNT 8.6 10^3/uL (4.0-10.0)
[2017-02-01 06:20] LABS: INR 3.69
[2017-02-01 06:33] LABS: ALBUMIN 2.2 GM/DL (3.2-5.2); ALBUMIN/GLOBULIN RATIO 0.49 (1.00-1.93); ALKALINE PHOSPHATASE 97 U/L (45-117); ALT/SGPT 20 U/L (12-78); ANION GAP 8 MEQ/L (8-16); AST/SGOT 29 U/L (7-37); BLOOD UREA NITROGEN 25 MG/DL (7-18); CALCIUM LEVEL 8.2 MG/DL (8.8-10.2); CARBON DIOXIDE LEVEL 26 MEQ/L (21-32); CHLORIDE LEVEL 111 MEQ/L (98-107); CREATININE FOR GFR 0.92 MG/DL (0.70-1.30); GLOMERULAR FILTRATION RATE > 60.0 (>35); GLUCOSE, FASTING 106 MG/DL (83-110); POTASSIUM SERUM 3.6 MEQ/L (3.5-5.1); SODIUM LEVEL 145 MEQ/L (136-145); TOTAL PROTEIN 6.7 GM/DL (6.4-8.2)
[2017-02-01] MEDS: OMEPRAZOLE 20 MG CAP PO SCH (09:10)
[2017-02-01] MEDS: MULTIVITAMINS/MINERALS THERAP 1 TAB PO SCH (09:10)
[2017-02-01] MEDS: PARoxetine 20 MG TAB PO SCH (09:10)
[2017-02-01] MEDS: ISOSORBIDE MON. (IMDUR) 30 MG XR TAB PO SCH (09:11)
[2017-02-01] MEDS: VITAMIN D 1,000 INTERNATIONAL UNITS TABLET PO SCH (09:12)
[2017-02-01] MEDS: VALSARTAN 80 MG TAB (DIOVAN) PO SCH ×2 (09:12→22:27)
[2017-02-01] MEDS: PERCOCET 5MG/325MG TAB PO PRN (09:14)
[2017-02-01] MEDS: FUROSEMIDE 40 MG TAB PO SCH (09:15)
--- NOTE | 2017-02-01 10:12 | IPNPDOC ---
Text Note Date of Service The patient was seen on 02/01/17. NOTE Subjective: Patient seen and examined at bedside. No acute overnight events. No new medical complaints this morning. He states he has purposely not been eating due to concerns of diarrhea. Objective: General: NAD, lying comfortably in bed, somewhat disheveled; family at bedside HEENT: NC/AT, EOMI Lungs: CTA B/L Heart: +S1S2 Abd: soft, NT, +BS Ext: left leg brace Psych: AAOx3 Assessment/Plan: #Left Knee Pain 2/2 Mechanical Fall - X-ray Imaging negative for any acute fractures - Suprapatellar joint effusion noted on x-ray of the left knee - s/p arthrocentesis - +pseudogout - follow as per Orthopedic surgery - assistance appreciated #Atrial fibrillation - Patient not on any rate controlling agents - INR is supratherapeutic - hold coumadin #hypomagnesemia - IV repletion - continue to follow #Dyslipidemia - Continue statin #Hx of CAD - ASA on hold Cont Statin, valsartan #Hypertension, stable continue regimen as ordered #GERD Continue PPI #Dementia Continue donepezil #DVT prophylaxis INR therapeutic on Coumadin Dispo: Pending further eval by ortho, PT; holding coumadin, INR supratherapeutic VS,Fishbone, I+O VS, Fishbone, I+O Laboratory Tests 02/01/17 05:37 Red Blood Count 3.43 L, Mean Corpuscular Volume 95.6, Mean Corpuscular Hemoglobin 30.9, Mean Corpuscular Hemoglobin Concent 32.3, Red Cell Distribution Width 14.6 H, Calcium Level 8.2 L, Aspartate Amino Transf (AST/SGOT ) 29, Alanine Aminotransferase (ALT/SGPT) 20, Alkaline Phosphatase 97, Total Bilirubin 1.0, Total Protein 6.7, Albumin 2.2 L Vital Signs Date Time Temp Pulse Resp B/P (MAP) Pulse Ox O2 Delivery O2 Flow Rate FiO2 02/01/17 09:14 18 Room Air 02/01/17 09:12 145/71 02/01/17 06:00 97.8 70 93 SPENCER SALGUERO MD Feb 01, 2017 10:12
[2017-02-01 10:26] LABS: MAGNESIUM LEVEL 1.3 MG/DL (1.8-2.4)
[2017-02-01 14:00] VITALS: BP 151/81
[2017-02-01 22:00] VITALS: BP 161/74
[2017-02-01] MEDS: ATORVASTATIN 20 MG TAB PO SCH (22:26)
[2017-02-01] MEDS: DONEPEZIL 5 MG TAB PO SCH (22:26)
[2017-02-01] MEDS: ACETAMINOPHEN TAB 650MG DOSE (2X325MG) PO PRN (22:28)
[2017-02-02 06:00] VITALS: BP 151/69
[2017-02-02 07:39] LABS: MEAN CORPUSCULAR HEMOGLOBIN 30.8 pg (27.0-33.0); MEAN CORPUSCULAR HGB CONC 32.5 g/dl (32.0-36.5); MEAN CORPUSCULAR VOLUME 94.7 fl (80.0-96.0); PLATELET COUNT, AUTOMATED 185 10^3/uL (150-450); RED CELL DISTRIBUTION WIDTH 14.3 % (11.5-14.5)
[2017-02-02 07:49] LABS: INR 2.78
[2017-02-02 07:57] LABS: ALBUMIN 2.2 GM/DL (3.2-5.2); ALBUMIN/GLOBULIN RATIO 0.45 (1.00-1.93); ALKALINE PHOSPHATASE 99 U/L (45-117); ALT/SGPT 22 U/L (12-78); ANION GAP 9 MEQ/L (8-16); AST/SGOT 31 U/L (7-37); BILIRUBIN,TOTAL 0.9 MG/DL (0.2-1.0); BLOOD UREA NITROGEN 25 MG/DL (7-18); CALCIUM LEVEL 8.5 MG/DL (8.8-10.2); CARBON DIOXIDE LEVEL 26 MEQ/L (21-32); CHLORIDE LEVEL 110 MEQ/L (98-107); CREATININE FOR GFR 0.95 MG/DL (0.70-1.30); GLOMERULAR FILTRATION RATE > 60.0 (>35); GLUCOSE, FASTING 122 MG/DL (83-110); POTASSIUM SERUM 3.8 MEQ/L (3.5-5.1); SODIUM LEVEL 145 MEQ/L (136-145); TOTAL PROTEIN 7.1 GM/DL (6.4-8.2)
[2017-02-02] MEDS: FUROSEMIDE 40 MG TAB PO SCH (08:37)
[2017-02-02] MEDS: PARoxetine 20 MG TAB PO SCH (08:37)
[2017-02-02] MEDS: VALSARTAN 80 MG TAB (DIOVAN) PO SCH ×2 (08:37→22:51)
[2017-02-02] MEDS: ISOSORBIDE MON. (IMDUR) 30 MG XR TAB PO SCH (08:38)
[2017-02-02] MEDS: MULTIVITAMINS/MINERALS THERAP 1 TAB PO SCH (08:38)
[2017-02-02] MEDS: OMEPRAZOLE 20 MG CAP PO SCH (08:38)
[2017-02-02] MEDS: VITAMIN D 1,000 INTERNATIONAL UNITS TABLET PO SCH (08:39)
--- NOTE | 2017-02-02 10:27 | IPNPDOC ---
Text Note Date of Service The patient was seen on 02/02/17. NOTE Subjective: Patient seen and examined at bedside. No acute overnight events. No new medical complaints this morning. Objective: General: NAD, lying comfortably in bed, somewhat disheveled HEENT: NC/AT, EOMI Lungs: CTA B/L Heart: +S1S2 Abd: soft, NT, +BS Ext: left leg brace Psych: AAOx3 Assessment/Plan: #Left Knee Pain 2/2 Mechanical Fall - X-ray Imaging negative for any acute fractures - Suprapatellar joint effusion noted on x-ray of the left knee - s/p arthrocentesis - +pseudogout - follow as per Orthopedic surgery - assistance appreciated #Atrial fibrillation - Patient not on any rate controlling agents - INR is therapeutic #hypomagnesemia - IV repletion - continue to follow #Dyslipidemia - Continue statin #Hx of CAD - ASA on hold - resume as per ortho - Cont Statin, valsartan #Hypertension, stable continue regimen as ordered #GERD Continue PPI #Dementia Continue donepezil #DVT prophylaxis INR therapeutic on Coumadin Dispo: Pending further eval by ortho, PT; resume coumadin; replete mag VS,Fishbone, I+O VS, Fishbone, I+O Laboratory Tests 02/02/17 06:59 Red Blood Count 3.57 L, Mean Corpuscular Volume 94.7, Mean Corpuscular Hemoglobin 30.8, Mean Corpuscular Hemoglobin Concent 32.5, Red Cell Distribution Width 14.3, Calcium Level 8.5 L, Aspartate Amino Transf (AST/SGOT) 31, Alanine Aminotransferase (ALT/SGPT) 22, Alkaline Phosphatase 99, Total Bilirubin 0.9, Total Protein 7.1, Albumin 2.2 L Vital Signs Date Time Temp Pulse Resp B/P (MAP) Pulse Ox O2 Delivery O2 Flow Rate FiO2 02/02/17 08:38 151/69 02/02/17 06:00 98.4 81 20 95 Room Air SPENCER SALGUERO MD Feb 02, 2017 10:27
[2017-02-02] MEDS: MAGNESIUM OXIDE 400 MG TAB (MAG-OX) PO SCH ×3 (13:17→22:51)
[2017-02-02 14:42] LABS: MAGNESIUM LEVEL 1.1 MG/DL (1.8-2.4)
[2017-02-02] MEDS: MAG SULF 1GM/100ML (MAG RUN) 1 GM in APPROPRIATE DILUENT 1 EA IV SCH ×2 (16:39→19:00)
[2017-02-02] MEDS ORDERED: WARFARIN SOD 3 MG TAB PO ONE (17:00)
[2017-02-02 22:00] VITALS: BP 146/86
[2017-02-02] MEDS: ACETAMINOPHEN TAB 650MG DOSE (2X325MG) PO PRN (22:50)
[2017-02-02] MEDS: DONEPEZIL 5 MG TAB PO SCH (22:51)
[2017-02-02] MEDS: ATORVASTATIN 20 MG TAB PO SCH (22:51)
[2017-02-03 06:00] VITALS: BP 146/81
[2017-02-03 07:27] LABS: MEAN CORPUSCULAR HEMOGLOBIN 30.7 pg (27.0-33.0); MEAN CORPUSCULAR HGB CONC 32.4 g/dl (32.0-36.5); MEAN CORPUSCULAR VOLUME 94.6 fl (80.0-96.0); PLATELET COUNT, AUTOMATED 190 10^3/uL (150-450); RED CELL DISTRIBUTION WIDTH 14.4 % (11.5-14.5); WHITE BLOOD COUNT 5.9 10^3/uL (4.0-10.0)
[2017-02-03 07:39] LABS: INR 2.61
[2017-02-03 07:53] LABS: ALBUMIN/GLOBULIN RATIO 0.43 (1.00-1.93); ALKALINE PHOSPHATASE 101 U/L (45-117); ALT/SGPT 20 U/L (12-78); ANION GAP 7 MEQ/L (8-16); AST/SGOT 28 U/L (7-37); BILIRUBIN,TOTAL 0.7 MG/DL (0.2-1.0); BLOOD UREA NITROGEN 23 MG/DL (7-18); CALCIUM LEVEL 8.7 MG/DL (8.8-10.2); CARBON DIOXIDE LEVEL 30 MEQ/L (21-32); CHLORIDE LEVEL 109 MEQ/L (98-107); CREATININE FOR GFR 0.81 MG/DL (0.70-1.30); GLOMERULAR FILTRATION RATE > 60.0 (>35); GLUCOSE, FASTING 84 MG/DL (83-110); MAGNESIUM LEVEL 1.8 MG/DL (1.8-2.4); POTASSIUM SERUM 3.3 MEQ/L (3.5-5.1); SODIUM LEVEL 146 MEQ/L (136-145); TOTAL PROTEIN 6.6 GM/DL (6.4-8.2)
[2017-02-03] MEDS ORDERED: POTASSIUM CHLORIDE 10 MEQ SR TABLET PO ONE (08:00)
[2017-02-03] MEDS: OMEPRAZOLE 20 MG CAP PO SCH (09:58)
[2017-02-03] MEDS: MAGNESIUM OXIDE 400 MG TAB (MAG-OX) PO SCH ×3 (09:58→20:31)
[2017-02-03] MEDS: MULTIVITAMINS/MINERALS THERAP 1 TAB PO SCH (09:58)
[2017-02-03] MEDS: ISOSORBIDE MON. (IMDUR) 30 MG XR TAB PO SCH (09:58)
[2017-02-03] MEDS: PARoxetine 20 MG TAB PO SCH (09:58)
[2017-02-03] MEDS: FUROSEMIDE 40 MG TAB PO SCH (09:59)
[2017-02-03] MEDS: VITAMIN D 1,000 INTERNATIONAL UNITS TABLET PO SCH (10:01)
[2017-02-03] MEDS: VALSARTAN 80 MG TAB (DIOVAN) PO SCH ×2 (10:01→20:28)
[2017-02-03 14:00] VITALS: BP 120/59
--- NOTE | 2017-02-03 15:42 | IPN ---
DATE: 02/03/2017 Mr. Dudley is feeling well this morning. He has no complaints of pain. No chest pain. No shortness of breath. Temperature 98.1, pulse 70, respiratory rate 14, blood pressure 146/81, 97% on room air. Awake, appropriately interactive, pleasantly conversant. Mucous membranes moist. Neck supple. Breathing symmetrical, rested. Inspiratory to expiratory (I-to-E) ratio 1:3. No wheezes, rales, or rhonchi. Heart is distant sounding. Normal S1, S2. Abdomen soft, doughy, nontender. His left knee is somewhat tender and boggy proximally. White cell count 5.9, hemoglobin 10.7, platelets of 190. BUN 23, creatinine 0.8, potassium 3.3. ASSESSMENT: This is an 86-year-old with mechanical fall and left knee pain, thought to have pseudogout. PLAN: 1. Patient has left knee pain, getting physical therapy. Perhaps is improving his pseudogout. Continue with pain management. 2. Patient has atrial fibrillation. INR is therapeutic. 3. Patient has hypomagnesemia, which resolved. 4. Patient has hypokalemia, which is being repleted. 5. Patient has history of coronary artery disease. 6. Patient has hypertension, which is reasonably controlled in the current setting. 7. Patient has history of dementia. 8. Patient has deep vein thrombosis (DVT) prophylaxis in the form of therapeutic INR.
[2017-02-03] MEDS: PERCOCET 5MG/325MG TAB PO PRN (16:27)
[2017-02-03] MEDS: DONEPEZIL 5 MG TAB PO SCH (20:27)
[2017-02-03] MEDS: ATORVASTATIN 20 MG TAB PO SCH (20:29)
[2017-02-03 22:00] VITALS: BP 114/64
[2017-02-04 06:00] VITALS: BP 146/76
[2017-02-04 07:29] LABS: MEAN CORPUSCULAR HEMOGLOBIN 30.9 pg (27.0-33.0); MEAN CORPUSCULAR HGB CONC 32.6 g/dl (32.0-36.5); MEAN CORPUSCULAR VOLUME 94.6 fl (80.0-96.0); PLATELET COUNT, AUTOMATED 204 10^3/uL (150-450); RED CELL DISTRIBUTION WIDTH 14.3 % (11.5-14.5); WHITE BLOOD COUNT 5.4 10^3/uL (4.0-10.0)
[2017-02-04 07:43] LABS: INR 2.04
[2017-02-04 07:49] LABS: ALBUMIN 2.1 GM/DL (3.2-5.2); ALBUMIN/GLOBULIN RATIO 0.57 (1.00-1.93); ALKALINE PHOSPHATASE 103 U/L (45-117); ALT/SGPT 22 U/L (12-78); ANION GAP 6 MEQ/L (8-16); AST/SGOT 27 U/L (7-37); BILIRUBIN,TOTAL 0.7 MG/DL (0.2-1.0); BLOOD UREA NITROGEN 30 MG/DL (7-18); CALCIUM LEVEL 8.7 MG/DL (8.8-10.2); CARBON DIOXIDE LEVEL 29 MEQ/L (21-32); CHLORIDE LEVEL 109 MEQ/L (98-107); CREATININE FOR GFR 0.85 MG/DL (0.70-1.30); GLOMERULAR FILTRATION RATE > 60.0 (>35); GLUCOSE, FASTING 78 MG/DL (83-110); MAGNESIUM LEVEL 1.7 MG/DL (1.8-2.4); POTASSIUM SERUM 3.9 MEQ/L (3.5-5.1); SODIUM LEVEL 144 MEQ/L (136-145); TOTAL PROTEIN 5.8 GM/DL (6.4-8.2)
[2017-02-04] MEDS: VALSARTAN 80 MG TAB (DIOVAN) PO SCH ×2 (10:24→20:10)
[2017-02-04] MEDS: ISOSORBIDE MON. (IMDUR) 30 MG XR TAB PO SCH (10:25)
[2017-02-04] MEDS: MAGNESIUM OXIDE 400 MG TAB (MAG-OX) PO SCH ×3 (10:27→20:09)
[2017-02-04] MEDS: PARoxetine 20 MG TAB PO SCH (10:27)
[2017-02-04] MEDS: FUROSEMIDE 40 MG TAB PO SCH (10:27)
[2017-02-04] MEDS: MULTIVITAMINS/MINERALS THERAP 1 TAB PO SCH (10:29)
[2017-02-04] MEDS: OMEPRAZOLE 20 MG CAP PO SCH (10:29)
[2017-02-04] MEDS: VITAMIN D 1,000 INTERNATIONAL UNITS TABLET PO SCH (10:29)
--- NOTE | 2017-02-04 15:20 | IPN ---
DATE: 02/04/2017 Mr. Dudley is awake, appropriately interactive. Pleasantly conversant. Says he feels generally well at the moment. Has no complaint of pain in his left knee. No chest pain, no shortness of breath. Not particularly hungry. Temperature 98.5, pulse 70, respiratory rate 14, blood pressure 146/76, 95% on room air. Intake and output (I and Os) notable for a positive fluid balance of 600. Three bowel movements yesterday. He is awake, appropriately interactive. Pleasantly conversant. No acute distress. Neck supple. Breathing symmetrical. Diminished. I to E ratio is 1:3. Some upper airway sounds are noted. Heart is distant sounding. Normal S1, S2. Abdomen soft, doughy, nontender. White cell count 5.4, hemoglobin 10.9, platelets 204, BUN 30, creatinine 0.85. INR is 2.04. 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 PLAN: 1. Left knee pain. This is from pseudogout. Working with physical therapy, is improving generally. He is looking forward to walking farther today. 2. Atrial fibrillation. INR is therapeutic. Coumadin will be restarted. It was previously supratherapeutic. 3. Hypomagnesemia, which has resolved. 4. Hyperkalemia, which has been repleted. 5. Coronary artery disease. 6. Hypertension. Reasonably well controlled. 7. History of dementia. 8. General malaise currently. Will encourage him to be out of bed, eat and drink and monitor him clinically. 9. Deep venous thrombosis (DVT) prophylaxis in the form of Coumadin.
[2017-02-04] MEDS: WARFARIN SOD 7.5 MG TAB PO SCH (16:55)
[2017-02-04] MEDS: DONEPEZIL 5 MG TAB PO SCH (20:09)
[2017-02-04] MEDS: ATORVASTATIN 20 MG TAB PO SCH (20:09)
[2017-02-04] MEDS: PERCOCET 5MG/325MG TAB PO PRN (21:35)
[2017-02-05 06:00] VITALS: BP 138/75
[2017-02-05 07:11] LABS: MEAN CORPUSCULAR HEMOGLOBIN 30.3 pg (27.0-33.0); MEAN CORPUSCULAR HGB CONC 32.3 g/dl (32.0-36.5); MEAN CORPUSCULAR VOLUME 93.8 fl (80.0-96.0); PLATELET COUNT, AUTOMATED 216 10^3/uL (150-450); WHITE BLOOD COUNT 5.7 10^3/uL (4.0-10.0)
[2017-02-05 07:23] LABS: INR 1.99
[2017-02-05 07:31] LABS: ALBUMIN 2.2 GM/DL (3.2-5.2); ALBUMIN/GLOBULIN RATIO 0.49 (1.00-1.93); ALKALINE PHOSPHATASE 109 U/L (45-117); ALT/SGPT 25 U/L (12-78); ANION GAP 8 MEQ/L (8-16); AST/SGOT 24 U/L (7-37); BILIRUBIN,TOTAL 0.6 MG/DL (0.2-1.0); BLOOD UREA NITROGEN 25 MG/DL (7-18); CALCIUM LEVEL 8.8 MG/DL (8.8-10.2); CARBON DIOXIDE LEVEL 28 MEQ/L (21-32); CHLORIDE LEVEL 107 MEQ/L (98-107); CREATININE FOR GFR 0.91 MG/DL (0.70-1.30); GLOMERULAR FILTRATION RATE > 60.0 (>35); GLUCOSE, FASTING 86 MG/DL (83-110); MAGNESIUM LEVEL 1.5 MG/DL (1.8-2.4); POTASSIUM SERUM 3.8 MEQ/L (3.5-5.1); SODIUM LEVEL 143 MEQ/L (136-145); TOTAL PROTEIN 6.7 GM/DL (6.4-8.2)
[2017-02-05] MEDS: OMEPRAZOLE 20 MG CAP PO SCH (09:20)
[2017-02-05] MEDS: MULTIVITAMINS/MINERALS THERAP 1 TAB PO SCH (09:20)
[2017-02-05] MEDS: PARoxetine 20 MG TAB PO SCH (09:20)
[2017-02-05] MEDS: MAGNESIUM OXIDE 400 MG TAB (MAG-OX) PO SCH ×3 (09:21→20:28)
[2017-02-05] MEDS: FUROSEMIDE 40 MG TAB PO SCH (09:21)
[2017-02-05] MEDS: VITAMIN D 1,000 INTERNATIONAL UNITS TABLET PO SCH (09:21)
[2017-02-05] MEDS: ISOSORBIDE MON. (IMDUR) 30 MG XR TAB PO SCH (09:22)
[2017-02-05] MEDS: VALSARTAN 80 MG TAB (DIOVAN) PO SCH ×2 (09:22→20:28)
--- NOTE | 2017-02-05 12:53 | IPN ---
DATE: 02/05/2017 Mr. Dudley is feeling relatively well today. He has no complaints of pain, chest pain, shortness of breath. He did have malaise yesterday which has apparently resolved. At this point he does not complain of any knee pain. He is looking forward to working with physical therapy. Temperature 96.6, pulse 65, respiratory rate 15, blood pressure 138/75, 93% on room air. Input and output are notable for a positive fluid balance of 480. No bowel movements noted. He is awake, appropriately interactive, pleasantly conversant. Breathing is symmetrical rested. Heart is distant sounding. Abdomen soft, doughy nontender. There is some edema and bogginess of his left knee. It is nontender. Not warm. Not red. White cell count 5.7, hemoglobin 10.8, platelets 216. INR 1.99. BUN 25, creatinine 0.9. ASSESSMENT: 86-year-old with mechanical fall, left knee pain and contact pseudogout. PLAN: 1. Patient has left knee pain from pseudogout. It is much improved at this point. Working with physical therapy. 2. The patient has atrial fibrillation. INR is minimally subtherapeutic. Coumadin has been restarted. Continuing with the current dose today. 3. The patient has resolved hypokalemia. Continuing hypomagnesemia. Will give another dose of magnesium IV today. 4. Patient has coronary artery disease. 5. The patient hypertension, which is reasonably controlled. 6. The patient has a history of dementia. 7. General malaise appears to have resolved. 8. Deep venous thrombosis prophylaxis is in the form of Coumadin which is minimally subtherapeutic.
[2017-02-05 14:00] VITALS: BP 149/72
[2017-02-05] MEDS: MAG SULF 1GM/100ML (MAG RUN) 1 GM in APPROPRIATE DILUENT 1 EA IV SCH ×2 (14:34→15:21)
[2017-02-05] MEDS: WARFARIN SOD 7.5 MG TAB PO SCH (17:20)
[2017-02-05] MEDS: ATORVASTATIN 20 MG TAB PO SCH (20:27)
[2017-02-05] MEDS: DONEPEZIL 5 MG TAB PO SCH (20:28)
[2017-02-05] MEDS: PERCOCET 5MG/325MG TAB PO PRN (20:29)
[2017-02-05 22:00] VITALS: BP 138/63
[2017-02-06 06:00] VITALS: BP 126/78
[2017-02-06] MEDS: PERCOCET 5MG/325MG TAB PO PRN ×2 (06:50→20:13)
[2017-02-06 06:57] LABS: MEAN CORPUSCULAR HEMOGLOBIN 30.9 pg (27.0-33.0); MEAN CORPUSCULAR HGB CONC 32.9 g/dl (32.0-36.5); MEAN CORPUSCULAR VOLUME 93.9 fl (80.0-96.0); PLATELET COUNT, AUTOMATED 251 10^3/uL (150-450); WHITE BLOOD COUNT 6.8 10^3/uL (4.0-10.0)
[2017-02-06 07:08] LABS: INR 2.14
[2017-02-06 07:16] LABS: ALBUMIN 2.2 GM/DL (3.2-5.2); ALKALINE PHOSPHATASE 107 U/L (45-117); ALT/SGPT 26 U/L (12-78); ANION GAP 7 MEQ/L (8-16); AST/SGOT 23 U/L (7-37); BILIRUBIN,TOTAL 0.5 MG/DL (0.2-1.0); BLOOD UREA NITROGEN 28 MG/DL (7-18); CARBON DIOXIDE LEVEL 29 MEQ/L (21-32); CHLORIDE LEVEL 106 MEQ/L (98-107); CREATININE FOR GFR 0.98 MG/DL (0.70-1.30); GLOMERULAR FILTRATION RATE > 60.0 (>35); GLUCOSE, FASTING 93 MG/DL (83-110); MAGNESIUM LEVEL 2.1 MG/DL (1.8-2.4); POTASSIUM SERUM 4.1 MEQ/L (3.5-5.1); SODIUM LEVEL 142 MEQ/L (136-145); TOTAL PROTEIN 6.6 GM/DL (6.4-8.2)
[2017-02-06] MEDS: MULTIVITAMINS/MINERALS THERAP 1 TAB PO SCH (08:12)
[2017-02-06] MEDS: OMEPRAZOLE 20 MG CAP PO SCH (08:12)
[2017-02-06] MEDS: FUROSEMIDE 40 MG TAB PO SCH (08:13)
[2017-02-06] MEDS: MAGNESIUM OXIDE 400 MG TAB (MAG-OX) PO SCH ×3 (08:13→20:13)
[2017-02-06] MEDS: PARoxetine 20 MG TAB PO SCH (08:13)
[2017-02-06] MEDS: VALSARTAN 80 MG TAB (DIOVAN) PO SCH ×2 (08:13→20:12)
[2017-02-06] MEDS: VITAMIN D 1,000 INTERNATIONAL UNITS TABLET PO SCH (08:14)
[2017-02-06] MEDS: ISOSORBIDE MON. (IMDUR) 30 MG XR TAB PO SCH (08:14)
[2017-02-06 14:00] VITALS: BP 107/55
[2017-02-06] MEDS: WARFARIN SOD 7.5 MG TAB PO SCH (16:23)
[2017-02-06] MEDS: ATORVASTATIN 20 MG TAB PO SCH (20:10)
[2017-02-06] MEDS: DONEPEZIL 5 MG TAB PO SCH (20:13)
[2017-02-06 22:00] VITALS: BP 116/65
--- NOTE | 2017-02-06 22:05 | IPN ---
DATE: 02/06/2017 Mr. Dudley has concerns about the possibility of being transferred to subacute rehabilitation. He does not understand how that works, and he wants to discuss it with the environmental restoration planner. No complaints of pain, chest pain, shortness of breath. He is working more with physical therapy. Temperature 97.4, pulse 68, respirations 18, blood pressure 126/78, 92% on room air. Intake and output notable for a positive fluid balance of 960. Two bowel movements yesterday. He is awake, appropriately interactive, pleasantly conversant, appreciating the snow outside of his room. Mucous membranes moist. Neck supple. Breathing is symmetrical. Heart is distant sounding. Abdomen soft, doughy, nontender. There is no tenderness to his left knee. White cell count 6.8, hemoglobin 11.1, platelets of 251. INR is 2.14. BUN 28, creatinine 0.9. ASSESSMENT: This is an 86-year-old with mechanical fall with knee pain and pseudogout. PLAN: 1. Patient has left pain with pseudogout, which is improving. He is working with physical therapy and will benefit from subacute rehabilitation. 2. Patient has atrial fibrillation. INR is therapeutic. Will monitor this clinically. 3. Patient has resolved electrolyte abnormalities in the form of hypokaliemia and hypomagnesemia. 4. Patient has coronary artery disease. 5. Patient has hypertension, which is reasonably controlled. 6. Patient has history of dementia. 7. Patient has deep vein thrombosis (DVT) prophylaxis in the form of therapeutic Coumadin.
[2017-02-07 06:00] VITALS: BP 123/72
[2017-02-07] MEDS: MAGNESIUM OXIDE 400 MG TAB (MAG-OX) PO SCH ×3 (09:06→21:06)
[2017-02-07] MEDS: VITAMIN D 1,000 INTERNATIONAL UNITS TABLET PO SCH (09:07)
[2017-02-07] MEDS: ISOSORBIDE MON. (IMDUR) 30 MG XR TAB PO SCH (09:07)
[2017-02-07] MEDS: VALSARTAN 80 MG TAB (DIOVAN) PO SCH ×2 (09:07→21:07)
[2017-02-07] MEDS: FUROSEMIDE 40 MG TAB PO SCH (09:08)
[2017-02-07] MEDS: OMEPRAZOLE 20 MG CAP PO SCH (09:08)
[2017-02-07] MEDS: MULTIVITAMINS/MINERALS THERAP 1 TAB PO SCH (09:08)
[2017-02-07] MEDS: PARoxetine 20 MG TAB PO SCH (09:08)
--- NOTE | 2017-02-07 13:57 | IPN ---
DATE: 02/07/2017 Mr. Dudley is feeling well today. He has no complaints of pain, chest pain or shortness of breath. Tolerating a diet. He remembers me from previous encounters. Seems to understand that he is going to a senior care for rehabilitation on Thursday. He asked for help setting up his breakfast, which I am happy to oblige with. Temperature 98.2, pulse 81, respiratory rate 20, blood pressure 123/72, 95% on room air. Ins and outs notable for positive fluid balance of 600, 1 bowel movement yesterday. He is awake and appropriately interactive, pleasantly conversant. Breathing is symmetrical, diminished. Heart normal S1, S2. Abdomen soft, doughy, nontender. Magnesium level today is 2.3. ASSESSMENT: This is an 86-year-old with mechanical fall with knee pain and left pseudogout. PLAN: 1. Patient has left knee pain and pseudogout which is improved. He is working with physical therapy. He needs subacute rehabilitation. 2. Patient has atrial fibrillation. INR was therapeutic yesterday. Will repeat tomorrow. 3. Patient has resolved hypokalemia. Continue with hypomagnesemia. Hypomagnesemia has resolved. Repeat labs tomorrow. 4. Patient has coronary artery disease. 5. Patient has hypertension which is reasonably well controlled. 6. Patient has history of dementia, but appears to be a reasonable historian today. 7. Deep vein thrombosis (DVT) prophylaxis in the form of Coumadin.
[2017-02-07] MEDS: WARFARIN SOD 7.5 MG TAB PO SCH (16:22)
[2017-02-07] MEDS: DONEPEZIL 5 MG TAB PO SCH (21:06)
[2017-02-07] MEDS: ACETAMINOPHEN TAB 650MG DOSE (2X325MG) PO PRN (21:07)
[2017-02-07] MEDS: ATORVASTATIN 20 MG TAB PO SCH (21:08)
[2017-02-07 21:43] VITALS: BP 135/62
[2017-02-08 06:00] VITALS: BP 108/55
[2017-02-08 06:55] LABS: MEAN CORPUSCULAR HEMOGLOBIN 30.2 pg (27.0-33.0); MEAN CORPUSCULAR HGB CONC 32.1 g/dl (32.0-36.5); MEAN CORPUSCULAR VOLUME 94.2 fl (80.0-96.0); PLATELET COUNT, AUTOMATED 261 10^3/uL (150-450); RED CELL DISTRIBUTION WIDTH 14.2 % (11.5-14.5); WHITE BLOOD COUNT 8.2 10^3/uL (4.0-10.0)
[2017-02-08 07:04] LABS: INR 4.07
[2017-02-08 07:12] LABS: ANION GAP 7 MEQ/L (8-16); BLOOD UREA NITROGEN 26 MG/DL (7-18); CALCIUM LEVEL 9.4 MG/DL (8.8-10.2); CARBON DIOXIDE LEVEL 26 MEQ/L (21-32); CHLORIDE LEVEL 107 MEQ/L (98-107); CREATININE FOR GFR 0.92 MG/DL (0.70-1.30); GLOMERULAR FILTRATION RATE > 60.0 (>35); GLUCOSE, FASTING 92 MG/DL (83-110); MAGNESIUM LEVEL 2.1 MG/DL (1.8-2.4); POTASSIUM SERUM 4.1 MEQ/L (3.5-5.1); SODIUM LEVEL 140 MEQ/L (136-145)
[2017-02-08] MEDS: FUROSEMIDE 40 MG TAB PO SCH (07:56)
[2017-02-08] MEDS: OMEPRAZOLE 20 MG CAP PO SCH (07:57)
[2017-02-08] MEDS: ISOSORBIDE MON. (IMDUR) 30 MG XR TAB PO SCH (07:57)
[2017-02-08] MEDS: PARoxetine 20 MG TAB PO SCH (07:57)
[2017-02-08] MEDS: VALSARTAN 80 MG TAB (DIOVAN) PO SCH ×2 (07:57→20:39)
[2017-02-08] MEDS: MULTIVITAMINS/MINERALS THERAP 1 TAB PO SCH (07:57)
[2017-02-08] MEDS: MAGNESIUM OXIDE 400 MG TAB (MAG-OX) PO SCH ×3 (07:58→20:40)
[2017-02-08] MEDS: VITAMIN D 1,000 INTERNATIONAL UNITS TABLET PO SCH (07:58)
[2017-02-08] MEDS: PERCOCET 5MG/325MG TAB PO PRN (08:03)
[2017-02-08] MEDS: ATORVASTATIN 20 MG TAB PO SCH (20:39)
[2017-02-08] MEDS: DONEPEZIL 5 MG TAB PO SCH (20:39)
[2017-02-08] MEDS: ACETAMINOPHEN TAB 650MG DOSE (2X325MG) PO PRN (20:40)
[2017-02-08 22:00] VITALS: BP 165/73
[2017-02-09 06:00] VITALS: BP_SYST 126; BP_SYST 140; BP_DIAS 59; BP_DIAS 68
[2017-02-09] MEDS: MULTIVITAMINS/MINERALS THERAP 1 TAB PO SCH (07:41)
[2017-02-09] MEDS: VITAMIN D 1,000 INTERNATIONAL UNITS TABLET PO SCH (07:41)
[2017-02-09] MEDS: FUROSEMIDE 40 MG TAB PO SCH (07:41)
[2017-02-09] MEDS: OMEPRAZOLE 20 MG CAP PO SCH (07:42)
[2017-02-09] MEDS: PARoxetine 20 MG TAB PO SCH (07:42)
[2017-02-09 07:43] VITALS: BP 126/59
[2017-02-09] MEDS: ISOSORBIDE MON. (IMDUR) 30 MG XR TAB PO SCH (07:43)
[2017-02-09] MEDS: MAGNESIUM OXIDE 400 MG TAB (MAG-OX) PO SCH (07:43)
[2017-02-09] MEDS: VALSARTAN 80 MG TAB (DIOVAN) PO SCH (07:43)
[2017-02-09 08:52] LABS: MEAN CORPUSCULAR HEMOGLOBIN 31.1 pg (27.0-33.0); MEAN CORPUSCULAR HGB CONC 32.6 g/dl (32.0-36.5); MEAN CORPUSCULAR VOLUME 95.2 fl (80.0-96.0); PLATELET COUNT, AUTOMATED 266 10^3/uL (150-450); RED CELL DISTRIBUTION WIDTH 14.2 % (11.5-14.5); WHITE BLOOD COUNT 8.6 10^3/uL (4.0-10.0)
[2017-02-09 09:06] LABS: INR 3.62
[2017-02-09 09:24] LABS: ANION GAP 8 MEQ/L (8-16); BLOOD UREA NITROGEN 28 MG/DL (7-18); CARBON DIOXIDE LEVEL 27 MEQ/L (21-32); CHLORIDE LEVEL 107 MEQ/L (98-107); CREATININE FOR GFR 0.99 MG/DL (0.70-1.30); GLOMERULAR FILTRATION RATE > 60.0 (>35); GLUCOSE, FASTING 118 MG/DL (83-110); POTASSIUM SERUM 4.3 MEQ/L (3.5-5.1); SODIUM LEVEL 142 MEQ/L (136-145)
--- NOTE | 2017-02-09 09:36 | IPN ---
DATE: 02/08/2017 Mr. Dudley is feeling well this morning. He has no complaints of pain, chest pain or shortness of breath. He is tolerating diet. He says his knee feels a lot better, looking for forward to breakfast. Temperature is 98.5, pulse 69, respiratory rate 18, blood pressure 108/55, 92% on room air. Ins and outs notable for positive fluid status of 360. One bowel movement yesterday. Weight is 76.5. He is awake, appropriately interactive, pleasantly conversant, not a good historian. Mucous membranes moist. Neck supple. Breathing is symmetrical and rested. Abdomen soft, doughy, nontender. No tenderness to his left knee. There is still some swelling there. White cell count 8.2, hemoglobin 11.0 and platelets of 261. INR is 4.07. BUN is 26. Creatinine 0.92. My assessment is as follows: This is an 86-year-old with mechanical fall and knee pain and found to have left-sided pseudogout at the knee. Plan is as follows: 1. Left knee pain and pseudogout are improving. He is working with physical therapy. Plan is for subacute rehabilitation. 2. Patient has atrial fibrillation. INR is now supratherapeutic. I have discontinued Coumadin. Will monitor clinically. INR may go higher tomorrow. There is no role for reversal at this point. 3. Patient has resolved hypokalemia. 4. Patient has coronary artery disease. 5. Patient has hypertension, which is reasonably well controlled. 6. Patient has history of dementia. 7. Deep vein thrombosis (DVT) prophylaxis in the form of supratherapeutic Coumadin.
[2017-02-09] MEDS ORDERED: Acetaminophen Tab PO (10:08)
[2017-02-09] MEDS ORDERED: MAG400TA PO (10:08)
--- NOTE | 2017-02-09 17:02 | DSES ---
DATE OF ADMISSION: 01/30/2017 DATE OF DISCHARGE: 02/09/2017 PROCEDURES PERFORMED DURING HIS STAY: Included left knee diagnostic arthrocentesis. DISCHARGE DIAGNOSES: 1. Pseudogout. 2. Mechanical fall. 3. Atrial fibrillation. 4. Hypomagnesemia. 5. Dyslipidemia. 6. Coronary artery disease. 7. Hypertension. 8. Gastroesophageal reflux disease (GERD). 9. Dementia. SUMMARY OF HIS PRESENTATION: This is an 86-year-old who presented with a fall which was unwitnessed. This occurred at home. He had difficulty ambulating. He seemed to have a large left-sided joint effusion. Orthopedics was consulted. A left-sided knee arthrocentesis was performed which showed evidence of pseudogout. Treatment was conservative measures. He improved with physical therapy and was thought to be appropriate for subacute rehabilitation. During the course of his stay, his international normalized ratio (INR) did became supratherapeutic. INR will need to be monitored as an outpatient. On the date of discharge, he is feeling well. He has no complaints of pain, chest pain, shortness of breath. No knee pain. He is not a useful historian. Temperature is 99, pulse 68, respiratory rate 18, blood pressure 126/59, 94% on room air. Awake, appropriately interactive, pleasantly conversant. Breathing is symmetrical and rested. Mucous membranes are moist. Neck is supple. He is eating breakfast unassisted during my examination. LABORATORY DATA: White cell count 8.6. INR 3.6, down from 4.07, and BUN 28, creatinine 0.99. DISCHARGE INSTRUCTIONS: Include the following: Followup with Dr. Burris within one week. Diet and activity as tolerated. Continue: - Tylenol 650 mg every four hours as needed for pain or fever - magnesium oxide 400 mg by mouth twice a day - aspirin 81 mg by mouth daily - atorvastatin 80 mg by mouth daily at bedtime - vitamin D 1000 units by mouth daily - benazepril 5 mg by mouth daily at bedtime - ferrous sulfate 27 mg by mouth daily - Lasix 40 mg by mouth daily - glucosamine chondroitin one tablet by mouth twice a day - Imdur 30 mg by mouth daily - amantadine 10 mg by mouth daily at bedtime - multivitamin tablet daily - omeprazole 40 mg by mouth daily - paroxetine 40 mg by mouth daily - PreserVision two capsules by mouth twice a day - valsartan 160 mg by mouth twice a day Coumadin is currently on hold and is to be restarted 02/11/2017. Recommend regular international normalized ratio (INR), at least three times a week. Followup magnesium and basic metabolic panel (BMP). Restart Coumadin 02/11/2017.
== END 2017-02-09 11:15 | DRG 554 ==
LOC: M ED 15:39 → EDBD 15:39 → M ED INP 19:04 → M MS5PR 21:28
PROVIDERS: ADMIT Internal Medicine; ATTEND Internal Medicine
PROC: 0S9D3ZX Drainage of Left Knee Joint, Percutaneous Approach, Diagnostic (ICD-10-PCS; principal; 2017-01-31)
DX: M11.262 Other chondrocalcinosis, left knee (principal); I10 Essential (primary) hypertension; E78.5 Hyperlipidemia, unspecified; I48.91 Unspecified atrial fibrillation; I25.10 Atherosclerotic heart disease of native coronary artery without angina pectoris; F03.90 Unspecified dementia, unspecified severity, without behavioral disturbance, psychotic disturbance, mood disturbance, and anxiety; Z79.82 Long term (current) use of aspirin; Z79.01 Long term (current) use of anticoagulants; Z79.899 Other long term (current) drug therapy; W01.0XXA Fall on same level from slipping, tripping and stumbling without subsequent striking against object, initial encounter; Y92.013 Bedroom of single-family (private) house as the place of occurrence of the external cause; Y93.01 Activity, walking, marching and hiking; Y99.9 Unspecified external cause status; E83.42 Hypomagnesemia

== ENCOUNTER → 2017-02-17 | Outpatient (REF) ==
[~2017-02-17] MED LIST changes: +ASPI1TAB15 PO; +Acetaminophen Tab PO; +CHON150C PO; +FERR83TA2 PO; +FURO40TA2 PO; +MAG400TA PO; +MULT1TAB10 PO; +OMEP20CA3 PO; +PRESCAP PO; +VALS1TAB47 PO; +VITA100066 PO; +WARF-23 PO
[2017-02-17 10:32] LABS: MEAN CORPUSCULAR HEMOGLOBIN 30.1 pg (27.0-33.0); MEAN CORPUSCULAR HGB CONC 31.5 g/dl (32.0-36.5); MEAN CORPUSCULAR VOLUME 95.4 fl (80.0-96.0); PLATELET COUNT, AUTOMATED 278 10^3/uL (150-450); RED CELL DISTRIBUTION WIDTH 14.5 % (11.5-14.5); WHITE BLOOD COUNT 6.9 10^3/uL (4.0-10.0)
[2017-02-17 10:45] LABS: ANION GAP 9 MEQ/L (8-16); BLOOD UREA NITROGEN 26 MG/DL (7-18); CALCIUM LEVEL 8.8 MG/DL (8.8-10.2); CARBON DIOXIDE LEVEL 27 MEQ/L (21-32); CHLORIDE LEVEL 111 MEQ/L (98-107); CREATININE FOR GFR 0.88 MG/DL (0.70-1.30); GLOMERULAR FILTRATION RATE > 60.0 (>35); GLUCOSE, FASTING 71 MG/DL (83-110); MAGNESIUM LEVEL 1.5 MG/DL (1.8-2.4); POTASSIUM SERUM 4.5 MEQ/L (3.5-5.1); SODIUM LEVEL 147 MEQ/L (136-145)
== END ==
PROVIDERS: ATTEND Internal Medicine
DX: I10 Essential (primary) hypertension (principal)

== ENCOUNTER → 2017-02-24 | Outpatient (REF) | payer MEDICARE ==
[2017-02-24 10:16] LABS: MEAN CORPUSCULAR HGB CONC 31.2 g/dl (32.0-36.5); MEAN CORPUSCULAR VOLUME 96.2 fl (80.0-96.0); PLATELET COUNT, AUTOMATED 287 10^3/uL (150-450); WHITE BLOOD COUNT 8.8 10^3/uL (4.0-10.0)
[2017-02-24 10:36] LABS: ANION GAP 8 MEQ/L (8-16); BLOOD UREA NITROGEN 30 MG/DL (7-18); CALCIUM LEVEL 9.3 MG/DL (8.8-10.2); CARBON DIOXIDE LEVEL 28 MEQ/L (21-32); CHLORIDE LEVEL 107 MEQ/L (98-107); CREATININE FOR GFR 0.95 MG/DL (0.70-1.30); GLOMERULAR FILTRATION RATE > 60.0 (>35); GLUCOSE, FASTING 130 MG/DL (83-110); MAGNESIUM LEVEL 1.2 MG/DL (1.8-2.4); SODIUM LEVEL 143 MEQ/L (136-145)
== END ==
PROVIDERS: ATTEND Internal Medicine
DX: I10 Essential (primary) hypertension (principal)

== ENCOUNTER → 2017-02-25 | Outpatient (REF) | payer MEDICARE ==
[2017-02-25 17:13] LABS: MEAN CORPUSCULAR HEMOGLOBIN 29.7 pg (27.0-33.0); MEAN CORPUSCULAR HGB CONC 30.7 g/dl (32.0-36.5); MEAN CORPUSCULAR VOLUME 96.7 fl (80.0-96.0); PLATELET COUNT, AUTOMATED 264 10^3/uL (150-450); RED CELL DISTRIBUTION WIDTH 15.2 % (11.5-14.5); WHITE BLOOD COUNT 8.8 10^3/uL (4.0-10.0)
[2017-02-25 19:05] LABS: ANION GAP 9 MEQ/L (8-16); BLOOD UREA NITROGEN 31 MG/DL (7-18); CALCIUM LEVEL 9.1 MG/DL (8.8-10.2); CARBON DIOXIDE LEVEL 26 MEQ/L (21-32); CHLORIDE LEVEL 107 MEQ/L (98-107); CREATININE FOR GFR 1.09 MG/DL (0.70-1.30); GLOMERULAR FILTRATION RATE > 60.0 (>35); GLUCOSE, FASTING 94 MG/DL (83-110); POTASSIUM SERUM 4.5 MEQ/L (3.5-5.1); SODIUM LEVEL 142 MEQ/L (136-145); URIC ACID 5.5 MG/DL (3.5-7.2)
== END ==
DX: M10.9 Gout, unspecified (principal)
CPT/HCPCS: 84550

== ENCOUNTER → 2017-03-03 | Outpatient (REF) ==
[2017-03-03 10:22] LABS: ANION GAP 9 MEQ/L (8-16); BLOOD UREA NITROGEN 38 MG/DL (7-18); CALCIUM LEVEL 9.1 MG/DL (8.8-10.2); CARBON DIOXIDE LEVEL 28 MEQ/L (21-32); CHLORIDE LEVEL 106 MEQ/L (98-107); CREATININE FOR GFR 1.01 MG/DL (0.70-1.30); GLOMERULAR FILTRATION RATE > 60.0 (>35); GLUCOSE, FASTING 156 MG/DL (83-110); MAGNESIUM LEVEL 1.6 MG/DL (1.8-2.4); POTASSIUM SERUM 4.3 MEQ/L (3.5-5.1); SODIUM LEVEL 143 MEQ/L (136-145)
== END ==
DX: E83.42 Hypomagnesemia (principal)

== ENCOUNTER → 2017-03-06 | Outpatient (REF) ==
[2017-03-06 13:35] LABS: ANION GAP 7 MEQ/L (8-16); BLOOD UREA NITROGEN 28 MG/DL (7-18); CALCIUM LEVEL 8.9 MG/DL (8.8-10.2); CARBON DIOXIDE LEVEL 30 MEQ/L (21-32); CHLORIDE LEVEL 108 MEQ/L (98-107); CREATININE FOR GFR 0.85 MG/DL (0.70-1.30); GLOMERULAR FILTRATION RATE > 60.0 (>35); GLUCOSE, FASTING 69 MG/DL (83-110); POTASSIUM SERUM 4.5 MEQ/L (3.5-5.1); SODIUM LEVEL 145 MEQ/L (136-145)
== END ==
DX: I48.91 Unspecified atrial fibrillation (principal)

== ENCOUNTER → 2017-03-17 | Outpatient (REF) | payer MEDICARE | DX: I10 Essential (primary) hypertension (principal); E83.42 Hypomagnesemia ==

== ENCOUNTER → 2017-04-06 | Outpatient (REF) | payer MEDICARE ==
[2017-04-06 18:54] LABS: IRON (FE) 95 UG/DL (65-175); PERCENT SATURATION 28.4 % (19.7-50.0); TOTAL IRON BINDING CAPACITY 335 UG/DL (250-450)
== END ==
LOC: M LAB REF 18:05
DX: D50.9 Iron deficiency anemia, unspecified (principal)
CPT/HCPCS: 83550

== ENCOUNTER 2017-06-09 11:39 | Inpatient (IN) | payer MEDICARE ==
[2017-06-09] MEDS: ONDANSETRON 4MG/2ML VIAL (J2405) IV (12:22)
[2017-06-09] MEDS: MORPHINE 2 MG/ML 1ML SYRINGE (J2270) IV (12:22)
[2017-06-09 12:32] LABS: BASO % 0.1 % (0.0-1.0); EOS % 0.1 % (0.0-3.0); HEMATOCRIT 38.9 % (42.0-52.0); HEMOGLOBIN 12.3 g/dl (13.5-17.5); IMMATURE GRANULOCYTE % 0.4 % (0-3.0); MEAN CORPUSCULAR HEMOGLOBIN 30.4 pg (27.0-33.0); MEAN CORPUSCULAR HGB CONC 31.6 g/dl (32.0-36.5); MONO % 9.4 % (0.0-5.0); NEUTROPHILS # 9.3 10^3/uL (1.8-7.7); PLATELET COUNT, AUTOMATED 180 10^3/uL (150-450); RED BLOOD COUNT 4.05 10^6/uL (4.30-6.10); RED CELL DISTRIBUTION WIDTH 15.3 % (11.5-14.5); WHITE BLOOD COUNT 10.5 10^3/uL (4.0-10.0)
[2017-06-09 12:46] LABS: PROTHROMBIN TIME 26.1 SECONDS (12.4-14.5)
[2017-06-09 13:06] LABS: LYMPH # 0.2 10^3/uL (1.5-4.5); POSITIVE DIFF POS FLAG
[2017-06-09 13:09] LABS: ALBUMIN 3.1 GM/DL (3.2-5.2); ALBUMIN/GLOBULIN RATIO 0.74 (1.00-1.93); ALKALINE PHOSPHATASE 129 U/L (45-117); ALT/SGPT 16 U/L (12-78); ANION GAP 6 MEQ/L (8-16); AST/SGOT 18 U/L (7-37); BILIRUBIN,DIRECT 0.2 MG/DL (0.0-0.2); BILIRUBIN,TOTAL 0.6 MG/DL (0.2-1.0); BLOOD UREA NITROGEN 26 MG/DL (7-18); CALCIUM LEVEL 9.4 MG/DL (8.8-10.2); CARBON DIOXIDE LEVEL 27 MEQ/L (21-32); CHLORIDE LEVEL 111 MEQ/L (98-107); CPK CREATINE PHOSPHOKINASE 58 U/L (39-308); CREATININE FOR GFR 1.15 MG/DL (0.70-1.30); GLOMERULAR FILTRATION RATE > 60.0 (>35); GLUCOSE, FASTING 105 MG/DL (70-100); POTASSIUM SERUM 4.5 MEQ/L (3.5-5.1); SODIUM LEVEL 144 MEQ/L (136-145); TOTAL PROTEIN 7.3 GM/DL (6.4-8.2); TROPONIN I 0.02 NG/ML (< 0.10)
[2017-06-09 13:14] LABS: CK-MB VALUE MASS 1.7 NG/ML (<3.6); MB/CK RELATIVE INDEX 2.93 (< OR =4)
[2017-06-09] MEDS: NS 1,000 ML IV (13:15)
[2017-06-09] MEDS: PHYTONADIONE 5 MG TAB PO (14:34)
[2017-06-09] MEDS ORDERED: FLUTICASONE PROP 0.05% NASAL SPRAY 16 GM (FLONASE) (15:00)
[2017-06-09] MEDS ORDERED: ONDANSETRON 4MG/2ML VIAL (J2405) IV (15:00)
[2017-06-09] MEDS: ACETAMINOPHEN 650MG ER TAB (TYLENOL ARTHRITIS) PO ×2 (17:41→21:46)
[2017-06-09] MEDS: PERCOCET 5MG/325MG TAB PO (18:56)
[2017-06-09] MEDS ORDERED: NITROGLYCERIN 0.4 MG SUBL TABLET SL (20:15)
[2017-06-09] MEDS: ATORVASTATIN 20 MG TAB PO (21:46)
[2017-06-09 22:30] LABS: TYPE AND SCREEN 1
[2017-06-10] MEDS: PERCOCET 5MG/325MG TAB PO ×2 (03:42→10:51)
[2017-06-10 05:28] LABS: HEMATOCRIT 32.6 % (42.0-52.0); HEMOGLOBIN 10.3 g/dl (13.5-17.5); MEAN CORPUSCULAR HEMOGLOBIN 29.9 pg (27.0-33.0); MEAN CORPUSCULAR HGB CONC 31.6 g/dl (32.0-36.5); MEAN CORPUSCULAR VOLUME 94.8 fl (80.0-96.0); PLATELET COUNT, AUTOMATED 143 10^3/uL (150-450); RED BLOOD COUNT 3.44 10^6/uL (4.30-6.10); RED CELL DISTRIBUTION WIDTH 15.5 % (11.5-14.5); WHITE BLOOD COUNT 7.9 10^3/uL (4.0-10.0)
[2017-06-10 05:35] LABS: INR 1.55
[2017-06-10 05:43] LABS: ALBUMIN 2.9 GM/DL (3.2-5.2); ALBUMIN/GLOBULIN RATIO 0.69 (1.00-1.93); ALKALINE PHOSPHATASE 113 U/L (45-117); ALT/SGPT 15 U/L (12-78); ANION GAP 5 MEQ/L (8-16); AST/SGOT 18 U/L (7-37); BILIRUBIN,TOTAL 0.6 MG/DL (0.2-1.0); BLOOD UREA NITROGEN 24 MG/DL (7-18); CALCIUM LEVEL 8.9 MG/DL (8.8-10.2); CARBON DIOXIDE LEVEL 27 MEQ/L (21-32); CHLORIDE LEVEL 112 MEQ/L (98-107); CREATININE FOR GFR 1.05 MG/DL (0.70-1.30); GLOMERULAR FILTRATION RATE > 60.0 (>35); GLUCOSE, FASTING 104 MG/DL (70-100); MAGNESIUM LEVEL 2.2 MG/DL (1.8-2.4); POTASSIUM SERUM 4.2 MEQ/L (3.5-5.1); SODIUM LEVEL 144 MEQ/L (136-145); TOTAL PROTEIN 7.1 GM/DL (6.4-8.2)
[2017-06-10] MEDS: PHYTONADIONE 10MG/ML INJECTION (J3430) SC (08:39)
[2017-06-10] MEDS ORDERED: VITAMIN D 1,000 INTERNATIONAL UNITS TABLET PO (09:00)
[2017-06-10] MEDS ORDERED: MULTIVITAMINS/MINERALS THERAP 1 TAB PO (09:00)
[2017-06-10] MEDS ORDERED: OMEPRAZOLE 20 MG CAP PO (09:00)
[2017-06-10] MEDS: ACETAMINOPHEN 650MG ER TAB (TYLENOL ARTHRITIS) PO (09:32)
[2017-06-10] MEDS: ESCITALOPRAM OXALATE 10 MG TAB (LEXAPRO) PO (09:32)
[2017-06-10] MEDS ORDERED: SLF 3 ML SYR IV ×2 (10:00→14:00)
[2017-06-10 10:14] LABS: TYPE AND SCREEN 1
[2017-06-10 13:43] LABS: INR 1.37; PROTHROMBIN TIME 17.2 SECONDS (12.4-14.5)
[2017-06-10] MEDS ORDERED: MIDAZOLAM INJ 2 MG/2 ML VIAL (J2250) As Ordered ×2 (13:50→15:06)
[2017-06-10] MEDS ORDERED: ONDANSETRON 4MG/2ML VIAL (J2405) As Ordered ×2 (13:51→15:06)
[2017-06-10] MEDS ORDERED: fentaNYL 100 MCG/2 ML INJECTION (J3010) As Ordered ×2 (13:51→15:06)
[2017-06-10] MEDS ORDERED: ROCURONIUM BROMIDE 50 MG/5 ML VIAL As Ordered (13:51)
[2017-06-10] MEDS ORDERED: LIDOCAINE 2% INJ 100 MG/5 ML SDV (FOR ANES.) As Ordered ×2 (13:51→15:06)
[2017-06-10] MEDS ORDERED: dexameTHASONE 4 MG/ML 1ML VIAL (J1100) As Ordered (13:51)
[2017-06-10] MEDS ORDERED: PROPOFOL 200 MG/20 ML VIAL As Ordered ×2 (13:54→15:06)
[2017-06-10] MEDS: ceFAZolin 2 GM/D5W 50 ML IV BAG (J0690 PER 500MG) As Ordered (14:40)
[2017-06-10] MEDS ORDERED: KETAMINE HCL 200 MG/20 ML VIAL As Ordered (15:06)
[2017-06-10] MEDS ORDERED: BUPIVACAINE HCL 0.5% 30 ML VIAL As Ordered (15:06)
[2017-06-10] MEDS ORDERED: METOCLOPRAMIDE INJ 10MG/2ML VIAL (J2765) As Ordered (15:06)
[2017-06-10] MEDS ORDERED: DESFLURANE 240 ML INHALANT As Ordered (15:16)
[2017-06-10] MEDS: ceFAZolin 1GM INJ (J0690 PER 500MG) As Ordered ×2 (16:03→16:04)
[2017-06-10] MEDS: TRANEXAMIC ACID 100 MG/ML 10ML VIAL As Ordered (16:40)
[2017-06-10] MEDS ORDERED: MORPHINE 1MG/ML IN 0.9% NACL 100ML IV BAG As Ordered (17:25)
[2017-06-10] MEDS ORDERED: MEPERIDINE INJ 25 MG/ML VIAL (J2175) As Ordered (17:33)
[2017-06-10] MEDS: MEPERIDINE INJ 25 MG/ML VIAL (J2175) IV (17:40)
[2017-06-10] MEDS ORDERED: FLEET ENEMA PR (18:30)
[2017-06-10] MEDS ORDERED: NALOXONE INJ 0.4 MG/1 ML VIAL (J2310) IV (18:30)
[2017-06-10] MEDS ORDERED: MORPHINE 1MG/ML IN 0.9% NACL 100ML IV BAG IV (18:30)
[2017-06-10] MEDS: LR 1,000 ML IV ×2 (18:30)
[2017-06-10] MEDS ORDERED: PERCOCET 5MG/325MG TAB PO (18:30)
[2017-06-10] MEDS ORDERED: ONDANSETRON 4MG/2ML VIAL (J2405) IV ×3 (18:30)
[2017-06-10] MEDS ORDERED: NALBUPHINE HCL 10 MG/ML AMP (J2300) IV (18:30)
[2017-06-10] MEDS ORDERED: diphenhydrAMINE INJ 50MG/ML VIAL (J1200) IV (18:30)
[2017-06-10] MEDS ORDERED: EPIDURAL/PCA KEYS XX (18:30)
[2017-06-10] MEDS ORDERED: fentaNYL 100 MCG/2 ML INJECTION (J3010) IV (18:30)
[2017-06-10 20:12] LABS: BEDSIDE GLUCOSE 90 MG/DL (83-110)
[2017-06-10] MEDS: ACETAMINOPHEN TAB 650MG DOSE (2X325MG) PO (21:48)
[2017-06-10] MEDS: WARFARIN SOD 5 MG TAB PO (21:48)
[2017-06-10] MEDS: MORPHINE 4 MG/ML 1ML VIAL/SYRINGE (J2270) IV (23:50)
[2017-06-11] MEDS: MORPHINE 4 MG/ML 1ML VIAL/SYRINGE (J2270) IV ×5 (03:26→23:34)
[2017-06-11] MEDS: ACETAMINOPHEN TAB 650MG DOSE (2X325MG) PO (03:46)
[2017-06-11 05:49] LABS: HEMATOCRIT 28.1 % (42.0-52.0); HEMOGLOBIN 8.9 g/dl (13.5-17.5); MEAN CORPUSCULAR HEMOGLOBIN 30.7 pg (27.0-33.0); MEAN CORPUSCULAR HGB CONC 31.7 g/dl (32.0-36.5); MEAN CORPUSCULAR VOLUME 96.9 fl (80.0-96.0); PLATELET COUNT, AUTOMATED 128 10^3/uL (150-450); RED CELL DISTRIBUTION WIDTH 15.5 % (11.5-14.5); WHITE BLOOD COUNT 9.3 10^3/uL (4.0-10.0)
[2017-06-11 05:56] LABS: INR 1.31; PROTHROMBIN TIME 16.6 SECONDS (12.4-14.5)
[2017-06-11 06:14] LABS: ALBUMIN 2.6 GM/DL (3.2-5.2); ALBUMIN/GLOBULIN RATIO 0.68 (1.00-1.93); ALKALINE PHOSPHATASE 92 U/L (45-117); ALT/SGPT 15 U/L (12-78); ANION GAP 5 MEQ/L (8-16); AST/SGOT 19 U/L (7-37); BILIRUBIN,TOTAL 0.4 MG/DL (0.2-1.0); BLOOD UREA NITROGEN 27 MG/DL (7-18); CALCIUM LEVEL 8.7 MG/DL (8.8-10.2); CARBON DIOXIDE LEVEL 27 MEQ/L (21-32); CHLORIDE LEVEL 110 MEQ/L (98-107); CREATININE FOR GFR 1.15 MG/DL (0.70-1.30); GLOMERULAR FILTRATION RATE > 60.0 (>35); GLUCOSE, FASTING 111 MG/DL (70-100); MAGNESIUM LEVEL 1.9 MG/DL (1.8-2.4); POTASSIUM SERUM 4.1 MEQ/L (3.5-5.1); SODIUM LEVEL 142 MEQ/L (136-145); TOTAL PROTEIN 6.4 GM/DL (6.4-8.2)
[2017-06-11] MEDS: MIRALAX *UNIT DOSE* 17GM PACKET PO (09:24)
[2017-06-11] MEDS: SENOKOT S TAB PO ×2 (09:24→22:17)
[2017-06-11] MEDS: MOM 30ML SUSPENSION UDC PO (09:24)
[2017-06-11] MEDS: FERROUS SULFATE 325MG TAB PO (11:48)
[2017-06-11] MEDS: VALSARTAN 80 MG TAB (DIOVAN) PO (11:56)
[2017-06-11] MEDS: FUROSEMIDE 40 MG TAB PO (11:56)
[2017-06-11] MEDS ORDERED: FLUTICASONE PROP 0.05% NASAL SPRAY 16 GM (FLONASE) (13:00)
[2017-06-11] MEDS: OMEPRAZOLE 20 MG CAP PO (14:16)
[2017-06-11] MEDS: ESCITALOPRAM OXALATE 10 MG TAB (LEXAPRO) PO (14:16)
[2017-06-11] MEDS: ATORVASTATIN 20 MG TAB PO (14:16)
[2017-06-11] MEDS: MULTIVITAMINS/MINERALS THERAP 1 TAB PO (14:17)
[2017-06-11] MEDS: WARFARIN SOD 5 MG TAB PO (17:06)
[2017-06-11] MEDS: MEMANTINE 5MG TABLET (NAMENDA) PO (22:16)
[2017-06-11] MEDS: traMADol 50 MG TAB PO (22:17)
[2017-06-12] MEDS: MORPHINE 4 MG/ML 1ML VIAL/SYRINGE (J2270) IV (04:01)
[2017-06-12 06:27] LABS: HEMATOCRIT 26.5 % (42.0-52.0); HEMOGLOBIN 8.4 g/dl (13.5-17.5); MEAN CORPUSCULAR HEMOGLOBIN 30.5 pg (27.0-33.0); MEAN CORPUSCULAR HGB CONC 31.7 g/dl (32.0-36.5); MEAN CORPUSCULAR VOLUME 96.4 fl (80.0-96.0); PLATELET COUNT, AUTOMATED 132 10^3/uL (150-450); RED BLOOD COUNT 2.75 10^6/uL (4.30-6.10); RED CELL DISTRIBUTION WIDTH 15.5 % (11.5-14.5); WHITE BLOOD COUNT 9.1 10^3/uL (4.0-10.0)
[2017-06-12 06:39] LABS: INR 1.35; PROTHROMBIN TIME 16.9 SECONDS (12.4-14.5)
[2017-06-12 07:00] LABS: ALBUMIN 2.3 GM/DL (3.2-5.2); ALBUMIN/GLOBULIN RATIO 0.56 (1.00-1.93); ALKALINE PHOSPHATASE 87 U/L (45-117); ALT/SGPT 7 U/L (12-78); ANION GAP 6 MEQ/L (8-16); AST/SGOT 19 U/L (7-37); BILIRUBIN,TOTAL 0.5 MG/DL (0.2-1.0); BLOOD UREA NITROGEN 29 MG/DL (7-18); CALCIUM LEVEL 9.4 MG/DL (8.8-10.2); CARBON DIOXIDE LEVEL 27 MEQ/L (21-32); CHLORIDE LEVEL 109 MEQ/L (98-107); CREATININE FOR GFR 0.97 MG/DL (0.70-1.30); GLOMERULAR FILTRATION RATE > 60.0 (>35); GLUCOSE, FASTING 102 MG/DL (70-100); MAGNESIUM LEVEL 2.1 MG/DL (1.8-2.4); SODIUM LEVEL 142 MEQ/L (136-145); TOTAL PROTEIN 6.4 GM/DL (6.4-8.2)
[2017-06-12] MEDS: VALSARTAN 80 MG TAB (DIOVAN) PO (08:43)
[2017-06-12] MEDS: FUROSEMIDE 40 MG TAB PO (08:43)
[2017-06-12] MEDS: ATORVASTATIN 20 MG TAB PO (08:43)
[2017-06-12] MEDS: MIRALAX *UNIT DOSE* 17GM PACKET PO (08:43)
[2017-06-12] MEDS: ESCITALOPRAM OXALATE 10 MG TAB (LEXAPRO) PO (08:43)
[2017-06-12] MEDS: MOM 30ML SUSPENSION UDC PO (08:43)
[2017-06-12] MEDS: OMEPRAZOLE 20 MG CAP PO (08:44)
[2017-06-12] MEDS: SENOKOT S TAB PO ×2 (08:44→19:44)
[2017-06-12] MEDS: MULTIVITAMINS/MINERALS THERAP 1 TAB PO (08:44)
[2017-06-12 12:34] LABS: HEMATOCRIT 26.2 % (42.0-52.0); HEMOGLOBIN 8.2 g/dl (13.5-17.5)
[2017-06-12 16:20] LABS: IMMEDIATE SPIN CROSSMATCH 1 2
[2017-06-12] MEDS: WARFARIN SOD 7.5 MG TAB PO (16:20)
[2017-06-12] MEDS: traMADol 50 MG TAB PO (16:20)
[2017-06-12] MEDS: MEMANTINE 5MG TABLET (NAMENDA) PO (19:44)
[2017-06-12] MEDS: ACETAMINOPHEN TAB 650MG DOSE (2X325MG) PO (19:44)
[2017-06-13] MEDS: ACETAMINOPHEN TAB 650MG DOSE (2X325MG) PO ×3 (02:43→17:38)
[2017-06-13 06:51] LABS: MEAN CORPUSCULAR HEMOGLOBIN 29.9 pg (27.0-33.0); MEAN CORPUSCULAR HGB CONC 32.3 g/dl (32.0-36.5); MEAN CORPUSCULAR VOLUME 92.8 fl (80.0-96.0); PLATELET COUNT, AUTOMATED 153 10^3/uL (150-450); RED BLOOD COUNT 3.34 10^6/uL (4.30-6.10); RED CELL DISTRIBUTION WIDTH 17.2 % (11.5-14.5); WHITE BLOOD COUNT 7.5 10^3/uL (4.0-10.0)
[2017-06-13 07:11] LABS: INR 1.33; PROTHROMBIN TIME 16.8 SECONDS (12.4-14.5)
[2017-06-13 07:18] LABS: ALBUMIN 2.3 GM/DL (3.2-5.2); ALBUMIN/GLOBULIN RATIO 0.51 (1.00-1.93); ALKALINE PHOSPHATASE 97 U/L (45-117); ALT/SGPT 10 U/L (12-78); ANION GAP 6 MEQ/L (8-16); AST/SGOT 26 U/L (7-37); BILIRUBIN,TOTAL 0.9 MG/DL (0.2-1.0); BLOOD UREA NITROGEN 27 MG/DL (7-18); CALCIUM LEVEL 9.4 MG/DL (8.8-10.2); CARBON DIOXIDE LEVEL 30 MEQ/L (21-32); CHLORIDE LEVEL 106 MEQ/L (98-107); CREATININE FOR GFR 0.93 MG/DL (0.70-1.30); GLOMERULAR FILTRATION RATE > 60.0 (>35); GLUCOSE, FASTING 91 MG/DL (70-100); MAGNESIUM LEVEL 2.1 MG/DL (1.8-2.4); POTASSIUM SERUM 3.5 MEQ/L (3.5-5.1); SODIUM LEVEL 142 MEQ/L (136-145); TOTAL PROTEIN 6.8 GM/DL (6.4-8.2)
[2017-06-13] MEDS: MIRALAX *UNIT DOSE* 17GM PACKET PO (09:00)
[2017-06-13] MEDS: ATORVASTATIN 20 MG TAB PO (09:17)
[2017-06-13] MEDS: ESCITALOPRAM OXALATE 10 MG TAB (LEXAPRO) PO (09:18)
[2017-06-13] MEDS: FUROSEMIDE 40 MG TAB PO (09:18)
[2017-06-13] MEDS: MULTIVITAMINS/MINERALS THERAP 1 TAB PO (09:18)
[2017-06-13] MEDS: VALSARTAN 80 MG TAB (DIOVAN) PO (09:18)
[2017-06-13] MEDS: OMEPRAZOLE 20 MG CAP PO (09:18)
[2017-06-13] MEDS: FERROUS SULFATE 325MG TAB PO (09:18)
[2017-06-13] MEDS: MOM 30ML SUSPENSION UDC PO (09:18)
[2017-06-13] MEDS: SENOKOT S TAB PO ×2 (09:18→21:52)
[2017-06-13] MEDS: WARFARIN SOD 5 MG TAB PO (16:20)
[2017-06-13] MEDS: MEMANTINE 5MG TABLET (NAMENDA) PO (21:52)
[2017-06-13] MEDS: traMADol 50 MG TAB PO (22:00)
[2017-06-14 06:17] LABS: HEMATOCRIT 29.7 % (42.0-52.0); HEMOGLOBIN 9.6 g/dl (13.5-17.5); MEAN CORPUSCULAR HEMOGLOBIN 29.8 pg (27.0-33.0); MEAN CORPUSCULAR HGB CONC 32.3 g/dl (32.0-36.5); MEAN CORPUSCULAR VOLUME 92.2 fl (80.0-96.0); PLATELET COUNT, AUTOMATED 174 10^3/uL (150-450); RED BLOOD COUNT 3.22 10^6/uL (4.30-6.10); RED CELL DISTRIBUTION WIDTH 16.2 % (11.5-14.5); WHITE BLOOD COUNT 8.4 10^3/uL (4.0-10.0)
[2017-06-14 06:29] LABS: INR 2.09; PROTHROMBIN TIME 24.2 SECONDS (12.4-14.5)
[2017-06-14 06:36] LABS: ALBUMIN 2.1 GM/DL (3.2-5.2); ALBUMIN/GLOBULIN RATIO 0.46 (1.00-1.93); ALKALINE PHOSPHATASE 118 U/L (45-117); ALT/SGPT 22 U/L (12-78); ANION GAP 7 MEQ/L (8-16); AST/SGOT 43 U/L (7-37); BILIRUBIN,TOTAL 0.8 MG/DL (0.2-1.0); BLOOD UREA NITROGEN 26 MG/DL (7-18); CALCIUM LEVEL 9.4 MG/DL (8.8-10.2); CARBON DIOXIDE LEVEL 27 MEQ/L (21-32); CHLORIDE LEVEL 111 MEQ/L (98-107); CREATININE FOR GFR 0.82 MG/DL (0.70-1.30); GLOMERULAR FILTRATION RATE > 60.0 (>35); GLUCOSE, FASTING 99 MG/DL (70-100); MAGNESIUM LEVEL 2.3 MG/DL (1.8-2.4); POTASSIUM SERUM 3.7 MEQ/L (3.5-5.1); SODIUM LEVEL 145 MEQ/L (136-145); TOTAL PROTEIN 6.7 GM/DL (6.4-8.2)
[2017-06-14] MEDS: MOM 30ML SUSPENSION UDC PO (09:13)
[2017-06-14] MEDS: ATORVASTATIN 20 MG TAB PO (09:13)
[2017-06-14] MEDS: VALSARTAN 80 MG TAB (DIOVAN) PO (09:13)
[2017-06-14] MEDS: ESCITALOPRAM OXALATE 10 MG TAB (LEXAPRO) PO (09:13)
[2017-06-14] MEDS: MIRALAX *UNIT DOSE* 17GM PACKET PO (09:13)
[2017-06-14] MEDS: SENOKOT S TAB PO ×2 (09:14→21:55)
[2017-06-14] MEDS: traMADol 50 MG TAB PO ×2 (09:15→18:33)
[2017-06-14] MEDS: MULTIVITAMINS/MINERALS THERAP 1 TAB PO (09:15)
[2017-06-14] MEDS: FUROSEMIDE 40 MG TAB PO (09:15)
[2017-06-14] MEDS: OMEPRAZOLE 20 MG CAP PO (09:15)
[2017-06-14] MEDS: WARFARIN SOD 2.5 MG TAB PO (17:36)
[2017-06-14] MEDS: MEMANTINE 5MG TABLET (NAMENDA) PO (21:55)
[2017-06-15 06:14] LABS: HEMATOCRIT 30.5 % (42.0-52.0); HEMOGLOBIN 9.7 g/dl (13.5-17.5); MEAN CORPUSCULAR HEMOGLOBIN 29.8 pg (27.0-33.0); MEAN CORPUSCULAR HGB CONC 31.8 g/dl (32.0-36.5); MEAN CORPUSCULAR VOLUME 93.8 fl (80.0-96.0); PLATELET COUNT, AUTOMATED 203 10^3/uL (150-450); RED BLOOD COUNT 3.25 10^6/uL (4.30-6.10); RED CELL DISTRIBUTION WIDTH 15.9 % (11.5-14.5); WHITE BLOOD COUNT 7.5 10^3/uL (4.0-10.0)
[2017-06-15 06:27] LABS: INR 2.26; PROTHROMBIN TIME 25.8 SECONDS (12.4-14.5)
[2017-06-15 06:38] LABS: ALBUMIN 2.1 GM/DL (3.2-5.2); ALBUMIN/GLOBULIN RATIO 0.46 (1.00-1.93); ALKALINE PHOSPHATASE 110 U/L (45-117); ALT/SGPT 22 U/L (12-78); ANION GAP 6 MEQ/L (8-16); AST/SGOT 38 U/L (7-37); BILIRUBIN,TOTAL 0.8 MG/DL (0.2-1.0); BLOOD UREA NITROGEN 23 MG/DL (7-18); CALCIUM LEVEL 9.4 MG/DL (8.8-10.2); CARBON DIOXIDE LEVEL 29 MEQ/L (21-32); CHLORIDE LEVEL 111 MEQ/L (98-107); CREATININE FOR GFR 0.75 MG/DL (0.70-1.30); GLOMERULAR FILTRATION RATE > 60.0 (>35); GLUCOSE, FASTING 99 MG/DL (70-100); MAGNESIUM LEVEL 2.3 MG/DL (1.8-2.4); POTASSIUM SERUM 3.8 MEQ/L (3.5-5.1); SODIUM LEVEL 146 MEQ/L (136-145); TOTAL PROTEIN 6.7 GM/DL (6.4-8.2)
[2017-06-15] MEDS: FERROUS SULFATE 325MG TAB PO (09:12)
[2017-06-15] MEDS: MOM 30ML SUSPENSION UDC PO (09:12)
[2017-06-15] MEDS: MIRALAX *UNIT DOSE* 17GM PACKET PO (09:12)
[2017-06-15] MEDS: OMEPRAZOLE 20 MG CAP PO (09:12)
[2017-06-15] MEDS: MULTIVITAMINS/MINERALS THERAP 1 TAB PO (09:12)
[2017-06-15] MEDS: SENOKOT S TAB PO ×2 (09:12→19:56)
[2017-06-15] MEDS: ESCITALOPRAM OXALATE 10 MG TAB (LEXAPRO) PO (09:13)
[2017-06-15] MEDS: FUROSEMIDE 40 MG TAB PO (09:13)
[2017-06-15] MEDS: VALSARTAN 80 MG TAB (DIOVAN) PO (09:13)
[2017-06-15] MEDS: ATORVASTATIN 20 MG TAB PO (09:13)
[2017-06-15] MEDS: D5W/0.45% SODIUM CHLORIDE 1,000 ML IV (11:16)
[2017-06-15] MEDS: ACETAMINOPHEN TAB 650MG DOSE (2X325MG) PO (17:02)
[2017-06-15] MEDS: MEMANTINE 5MG TABLET (NAMENDA) PO (19:56)
[2017-06-15] MEDS: traMADol 50 MG TAB PO (19:58)
[2017-06-16] MEDS: traMADol 50 MG TAB PO (06:14)
[2017-06-16 06:43] LABS: HEMATOCRIT 33.2 % (42.0-52.0); HEMOGLOBIN 10.5 g/dl (13.5-17.5); MEAN CORPUSCULAR HEMOGLOBIN 29.9 pg (27.0-33.0); MEAN CORPUSCULAR HGB CONC 31.6 g/dl (32.0-36.5); MEAN CORPUSCULAR VOLUME 94.6 fl (80.0-96.0); PLATELET COUNT, AUTOMATED 256 10^3/uL (150-450); RED BLOOD COUNT 3.51 10^6/uL (4.30-6.10); RED CELL DISTRIBUTION WIDTH 15.5 % (11.5-14.5); WHITE BLOOD COUNT 8.5 10^3/uL (4.0-10.0)
[2017-06-16 07:12] LABS: ALBUMIN 2.3 GM/DL (3.2-5.2); ALBUMIN/GLOBULIN RATIO 0.45 (1.00-1.93); ALKALINE PHOSPHATASE 136 U/L (45-117); ALT/SGPT 42 U/L (12-78); ANION GAP 7 MEQ/L (8-16); AST/SGOT 59 U/L (7-37); BILIRUBIN,TOTAL 1.1 MG/DL (0.2-1.0); BLOOD UREA NITROGEN 23 MG/DL (7-18); CALCIUM LEVEL 9.8 MG/DL (8.8-10.2); CARBON DIOXIDE LEVEL 30 MEQ/L (21-32); CHLORIDE LEVEL 108 MEQ/L (98-107); CREATININE FOR GFR 0.86 MG/DL (0.70-1.30); GLOMERULAR FILTRATION RATE > 60.0 (>35); GLUCOSE, FASTING 107 MG/DL (70-100); MAGNESIUM LEVEL 2.3 MG/DL (1.8-2.4); POTASSIUM SERUM 3.7 MEQ/L (3.5-5.1); SODIUM LEVEL 145 MEQ/L (136-145); TOTAL PROTEIN 7.4 GM/DL (6.4-8.2)
[2017-06-16 07:13] LABS: INR 2.12; PROTHROMBIN TIME 24.5 SECONDS (12.4-14.5)
[2017-06-16] MEDS: VALSARTAN 80 MG TAB (DIOVAN) PO (08:46)
[2017-06-16] MEDS: MULTIVITAMINS/MINERALS THERAP 1 TAB PO (08:46)
[2017-06-16] MEDS: MOM 30ML SUSPENSION UDC PO (08:46)
[2017-06-16] MEDS: OMEPRAZOLE 20 MG CAP PO (08:46)
[2017-06-16] MEDS: ATORVASTATIN 20 MG TAB PO (08:46)
[2017-06-16] MEDS: ESCITALOPRAM OXALATE 10 MG TAB (LEXAPRO) PO (08:46)
[2017-06-16] MEDS: MIRALAX *UNIT DOSE* 17GM PACKET PO (08:47)
[2017-06-16] MEDS: SENOKOT S TAB PO (08:47)
[2017-06-16] MEDS ORDERED: WARFARIN SOD 1 MG TAB PO (17:00)
== END 2017-06-16 12:40 | DRG 481 ==
LOC: M MS5PR 06-11 17:33 → M ED 11:39 → M ED INP 15:00 → M PCU 16:36
PROC: 0QSB06Z Reposition Right Lower Femur with Intramedullary Internal Fixation Device, Open Approach (ICD-10-PCS; principal; 2017-06-10 14:40)
PROC: 30233N1 Transfusion of Nonautologous Red Blood Cells into Peripheral Vein, Percutaneous Approach (ICD-10-PCS; 2017-06-10 14:40)
PROC: 30233K1 Transfusion of Nonautologous Frozen Plasma into Peripheral Vein, Percutaneous Approach (ICD-10-PCS; 2017-06-10 14:40)
DX: S72.451A Displaced supracondylar fracture without intracondylar extension of lower end of right femur, initial encounter for closed fracture (principal); I50.32 Chronic diastolic (congestive) heart failure; I11.0 Hypertensive heart disease with heart failure; E78.5 Hyperlipidemia, unspecified; I48.2 Chronic atrial fibrillation; I25.10 Atherosclerotic heart disease of native coronary artery without angina pectoris; Z95.0 Presence of cardiac pacemaker; F03.90 Unspecified dementia, unspecified severity, without behavioral disturbance, psychotic disturbance, mood disturbance, and anxiety; Z79.82 Long term (current) use of aspirin; Z79.01 Long term (current) use of anticoagulants; Z79.899 Other long term (current) drug therapy; Z96.651 Presence of right artificial knee joint; W18.11XA Fall from or off toilet without subsequent striking against object, initial encounter; Y92.012 Bathroom of single-family (private) house as the place of occurrence of the external cause; Y93.E8 Activity, other personal hygiene; Z87.891 Personal history of nicotine dependence; Z90.5 Acquired absence of kidney; Z85.528 Personal history of other malignant neoplasm of kidney

== ENCOUNTER → 2017-06-23 | Outpatient (REF) | payer MEDICARE ==
[2017-06-23 10:47] LABS: HEMOGLOBIN 10.6 g/dl (13.5-17.5); MEAN CORPUSCULAR HGB CONC 31.2 g/dl (32.0-36.5); MEAN CORPUSCULAR VOLUME 93.2 fl (80.0-96.0); PLATELET COUNT, AUTOMATED 436 10^3/uL (150-450); RED BLOOD COUNT 3.65 10^6/uL (4.30-6.10); RED CELL DISTRIBUTION WIDTH 15.3 % (11.5-14.5)
[2017-06-23 11:27] LABS: ANION GAP 9 MEQ/L (8-16); BLOOD UREA NITROGEN 32 MG/DL (7-18); CALCIUM LEVEL 9.5 MG/DL (8.8-10.2); CARBON DIOXIDE LEVEL 26 MEQ/L (21-32); CHLORIDE LEVEL 111 MEQ/L (98-107); CREATININE FOR GFR 1.01 MG/DL (0.70-1.30); GLOMERULAR FILTRATION RATE > 60.0 (>35); GLUCOSE, FASTING 157 MG/DL (70-100); SODIUM LEVEL 146 MEQ/L (136-145)
== END ==
DX: I48.91 Unspecified atrial fibrillation (principal)

== ENCOUNTER → 2017-07-21 | Outpatient (REF) ==
[2017-07-21 11:53] LABS: HEMATOCRIT 41.4 % (42.0-52.0); HEMOGLOBIN 12.6 g/dl (13.5-17.5); MEAN CORPUSCULAR HEMOGLOBIN 29.6 pg (27.0-33.0); MEAN CORPUSCULAR HGB CONC 30.4 g/dl (32.0-36.5); MEAN CORPUSCULAR VOLUME 97.4 fl (80.0-96.0); PLATELET COUNT, AUTOMATED 256 10^3/uL (150-450); RED BLOOD COUNT 4.25 10^6/uL (4.30-6.10); RED CELL DISTRIBUTION WIDTH 16.4 % (11.5-14.5); WHITE BLOOD COUNT 7.6 10^3/uL (4.0-10.0)
[2017-07-21 12:35] LABS: ALBUMIN 2.8 GM/DL (3.2-5.2); ALBUMIN/GLOBULIN RATIO 0.68 (1.00-1.93); ALKALINE PHOSPHATASE 185 U/L (45-117); ALT/SGPT 20 U/L (12-78); ANION GAP 9 MEQ/L (8-16); AST/SGOT 20 U/L (7-37); BILIRUBIN,TOTAL 0.5 MG/DL (0.2-1.0); BLOOD UREA NITROGEN 36 MG/DL (7-18); CALCIUM LEVEL 9.8 MG/DL (8.8-10.2); CARBON DIOXIDE LEVEL 29 MEQ/L (21-32); CHLORIDE LEVEL 106 MEQ/L (98-107); CREATININE FOR GFR 0.86 MG/DL (0.70-1.30); GLOMERULAR FILTRATION RATE > 60.0 (>35); GLUCOSE, FASTING 122 MG/DL (70-100); POTASSIUM SERUM 3.7 MEQ/L (3.5-5.1); SODIUM LEVEL 144 MEQ/L (136-145); TOTAL PROTEIN 6.9 GM/DL (6.4-8.2)
== END ==
DX: I48.91 Unspecified atrial fibrillation (principal)

== ENCOUNTER → 2017-09-23 | Outpatient (REF) ==
[2017-09-23 10:59] LABS: INR 1.98; PROTHROMBIN TIME 22.9 SECONDS (12.1-14.4)
== END ==
DX: I48.91 Unspecified atrial fibrillation (principal)

== ENCOUNTER → 2017-09-30 | Outpatient (REF) ==
[2017-09-30 11:30] LABS: PROTHROMBIN TIME 19.3 SECONDS (12.1-14.4)
== END ==
DX: I48.91 Unspecified atrial fibrillation (principal)

== ENCOUNTER → 2017-11-04 | Outpatient (REF) ==
[2017-11-04 15:40] LABS: INR 3.02
== END ==
DX: I48.91 Unspecified atrial fibrillation (principal)

== ENCOUNTER → 2017-11-06 | Outpatient (REF) ==
[2017-11-06 11:10] LABS: INR 2.23; PROTHROMBIN TIME 25.1 SECONDS (12.1-14.4)
== END ==
DX: Z79.01 Long term (current) use of anticoagulants (principal)

== ENCOUNTER → 2017-11-11 | Outpatient (REF) ==
[2017-11-11 10:27] LABS: INR 2.42; PROTHROMBIN TIME 26.8 SECONDS (12.1-14.4)
== END ==
DX: D64.9 Anemia, unspecified (principal); Z79.01 Long term (current) use of anticoagulants

== ENCOUNTER → 2017-11-26 | Outpatient (REF) ==
[2017-11-26 11:17] LABS: INR 1.54; PROTHROMBIN TIME 18.7 SECONDS (12.1-14.4)
== END ==
DX: I48.91 Unspecified atrial fibrillation (principal)

== ENCOUNTER → 2017-12-01 | Outpatient (REF) ==
[2017-12-01 10:28] LABS: HEMATOCRIT 44.8 % (42.0-52.0); HEMOGLOBIN 14.2 g/dl (13.5-17.5); MEAN CORPUSCULAR HGB CONC 31.7 g/dl (32.0-36.5); MEAN CORPUSCULAR VOLUME 94.5 fl (80.0-96.0); PLATELET COUNT, AUTOMATED 216 10^3/uL (150-450); RED BLOOD COUNT 4.74 10^6/uL (4.30-6.10); RED CELL DISTRIBUTION WIDTH 15.7 % (11.5-14.5); WHITE BLOOD COUNT 6.6 10^3/uL (4.0-10.0)
== END ==
DX: I48.91 Unspecified atrial fibrillation (principal)

== ENCOUNTER → 2017-12-08 | Outpatient (REF) ==
[2017-12-08 10:35] LABS: HEMATOCRIT 45.5 % (42.0-52.0); HEMOGLOBIN 14.2 g/dl (13.5-17.5); MEAN CORPUSCULAR HEMOGLOBIN 30.1 pg (27.0-33.0); MEAN CORPUSCULAR HGB CONC 31.2 g/dl (32.0-36.5); MEAN CORPUSCULAR VOLUME 96.4 fl (80.0-96.0); PLATELET COUNT, AUTOMATED 214 10^3/uL (150-450); RED BLOOD COUNT 4.72 10^6/uL (4.30-6.10); RED CELL DISTRIBUTION WIDTH 15.6 % (11.5-14.5); WHITE BLOOD COUNT 6.9 10^3/uL (4.0-10.0)
== END ==
DX: I48.91 Unspecified atrial fibrillation (principal); Z79.01 Long term (current) use of anticoagulants

== ENCOUNTER → 2017-12-15 | Outpatient (REF) ==
[2017-12-15 09:53] LABS: HEMATOCRIT 43.1 % (42.0-52.0); HEMOGLOBIN 13.5 g/dl (13.5-17.5); MEAN CORPUSCULAR HEMOGLOBIN 30.5 pg (27.0-33.0); MEAN CORPUSCULAR HGB CONC 31.3 g/dl (32.0-36.5); MEAN CORPUSCULAR VOLUME 97.3 fl (80.0-96.0); PLATELET COUNT, AUTOMATED 198 10^3/uL (150-450); RED BLOOD COUNT 4.43 10^6/uL (4.30-6.10); RED CELL DISTRIBUTION WIDTH 15.8 % (11.5-14.5); WHITE BLOOD COUNT 6.4 10^3/uL (4.0-10.0)
== END ==
DX: I48.91 Unspecified atrial fibrillation (principal)

== ENCOUNTER → 2017-12-22 | Outpatient (REF) ==
[2017-12-22 10:25] LABS: HEMATOCRIT 43.2 % (42.0-52.0); HEMOGLOBIN 13.8 g/dl (13.5-17.5); MEAN CORPUSCULAR HEMOGLOBIN 30.3 pg (27.0-33.0); MEAN CORPUSCULAR HGB CONC 31.9 g/dl (32.0-36.5); MEAN CORPUSCULAR VOLUME 94.7 fl (80.0-96.0); PLATELET COUNT, AUTOMATED 196 10^3/uL (150-450); RED BLOOD COUNT 4.56 10^6/uL (4.30-6.10); RED CELL DISTRIBUTION WIDTH 15.7 % (11.5-14.5); WHITE BLOOD COUNT 7.1 10^3/uL (4.0-10.0)
== END ==
DX: Z79.01 Long term (current) use of anticoagulants (principal)

== ENCOUNTER → 2017-12-25 | Outpatient (REF) ==
[2017-12-25 12:05] LABS: BASO % 0.4 % (0.0-1.0); EOS # 0.3 10^3/uL (0.0-0.50); EOS % 3.5 % (0.0-3.0); HEMATOCRIT 41.7 % (42.0-52.0); HEMOGLOBIN 13.3 g/dl (13.5-17.5); IMMATURE GRANULOCYTE % 0.4 % (0-3.0); LYMPH # 0.6 10^3/uL (1.5-4.5); LYMPH % 7.4 % (24.0-44.0); MEAN CORPUSCULAR HEMOGLOBIN 30.3 pg (27.0-33.0); MEAN CORPUSCULAR HGB CONC 31.9 g/dl (32.0-36.5); MONO # 0.9 10^3/uL (0.0-0.8); MONO % 12.3 % (0.0-5.0); NEUTROPHILS # 5.7 10^3/uL (1.8-7.7); PLATELET COUNT, AUTOMATED 189 10^3/uL (150-450); RED BLOOD COUNT 4.39 10^6/uL (4.30-6.10); RED CELL DISTRIBUTION WIDTH 15.6 % (11.5-14.5); WHITE BLOOD COUNT 7.5 10^3/uL (4.0-10.0)
[2017-12-25 12:25] LABS: ALBUMIN/GLOBULIN RATIO 0.91 (1.00-1.93); ALKALINE PHOSPHATASE 170 U/L (45-117); ALT/SGPT 17 U/L (12-78); AMYLASE 101 U/L (25-115); ANION GAP 7 MEQ/L (8-16); AST/SGOT 19 U/L (7-37); BILIRUBIN,TOTAL 0.4 MG/DL (0.2-1.0); BLOOD UREA NITROGEN 20 MG/DL (7-18); CALCIUM LEVEL 9.2 MG/DL (8.8-10.2); CARBON DIOXIDE LEVEL 26 MEQ/L (21-32); CHLORIDE LEVEL 112 MEQ/L (98-107); GLOMERULAR FILTRATION RATE > 60.0 (>35); GLUCOSE, FASTING 91 MG/DL (70-100); LIPASE 173 U/L (73-393); POTASSIUM SERUM 4.4 MEQ/L (3.5-5.1); SODIUM LEVEL 145 MEQ/L (136-145); TOTAL PROTEIN 6.3 GM/DL (6.4-8.2)
== END ==
DX: R19.7 Diarrhea, unspecified (principal); R10.9 Unspecified abdominal pain

== ENCOUNTER → 2018-02-16 | Outpatient (REF) ==
[2018-02-16 10:24] LABS: HEMATOCRIT 44.8 % (42.0-52.0); HEMOGLOBIN 13.7 g/dl (13.5-17.5); MEAN CORPUSCULAR HEMOGLOBIN 30.4 pg (27.0-33.0); MEAN CORPUSCULAR HGB CONC 30.6 g/dl (32.0-36.5); MEAN CORPUSCULAR VOLUME 99.3 fl (80.0-96.0); PLATELET COUNT, AUTOMATED 203 10^3/uL (150-450); RED BLOOD COUNT 4.51 10^6/uL (4.30-6.10); RED CELL DISTRIBUTION WIDTH 15.5 % (11.5-14.5); WHITE BLOOD COUNT 6.9 10^3/uL (4.0-10.0)
[2018-02-16 10:49] LABS: ALBUMIN 3.2 GM/DL (3.2-5.2); ALBUMIN/GLOBULIN RATIO 0.84 (1.00-1.93); ALKALINE PHOSPHATASE 181 U/L (45-117); ALT/SGPT 20 U/L (12-78); ANION GAP 9 MEQ/L (8-16); AST/SGOT 17 U/L (7-37); BILIRUBIN,TOTAL 0.5 MG/DL (0.2-1.0); BLOOD UREA NITROGEN 24 MG/DL (7-18); CALCIUM LEVEL 9.4 MG/DL (8.8-10.2); CARBON DIOXIDE LEVEL 27 MEQ/L (21-32); CHLORIDE LEVEL 107 MEQ/L (98-107); CHOLESTEROL LEVEL 129 MG/DL (<200); CHOLESTEROL RISK RATIO 3.225 (<5); CREATININE FOR GFR 0.92 MG/DL (0.70-1.30); GLOMERULAR FILTRATION RATE > 60.0 (>35); GLUCOSE, FASTING 143 MG/DL (70-100); HDL CHOLESTEROL 40 MG/DL (>40); IRON (FE) 59 UG/DL (65-175); LDL CHOLESTEROL 57 MG/DL (<100); MAGNESIUM LEVEL 2.2 MG/DL (1.8-2.4); NON-HDL-C 89 MG/DL; PERCENT SATURATION 19.7 % (19.7-50.0); POTASSIUM SERUM 4.1 MEQ/L (3.5-5.1); SODIUM LEVEL 143 MEQ/L (136-145); TOTAL IRON BINDING CAPACITY 300 UG/DL (250-450); TRIGLYCERIDES LEVEL 162 MG/DL (<150)
== END ==
DX: I50.9 Heart failure, unspecified (principal); D64.9 Anemia, unspecified; E78.5 Hyperlipidemia, unspecified; E55.9 Vitamin D deficiency, unspecified; Z79.899 Other long term (current) drug therapy

== ENCOUNTER → 2018-08-17 | Outpatient (REF) ==
[~2018-08-17] MED LIST changes: +ACET650T3 PO; -ASPI81CH32 PO; +ASPI81CH33 PO; +DONE10TA90 PO; -DONE5TAB17 PO; +DONE5TAB64 PO; +ESCI10TA2 PO; +FERR1TAB8 PO; +FLON1SPR; -LASI40TA PO; +LASI40TA9 PO; +MAGN250T11 PO; +MAGN400T5 PO; -VALS1TAB47 PO; +VALS1TAB66 PO; +VALS1TAB67 PO
[2018-08-17 09:29] LABS: HEMATOCRIT 41.5 % (42.0-52.0); MEAN CORPUSCULAR HEMOGLOBIN 31.9 pg (27.0-33.0); MEAN CORPUSCULAR HGB CONC 31.3 g/dl (32.0-36.5); MEAN CORPUSCULAR VOLUME 101.7 fl (80.0-96.0); PLATELET COUNT, AUTOMATED 229 10^3/uL (150-450); RED BLOOD COUNT 4.08 10^6/uL (4.30-6.10); WHITE BLOOD COUNT 6.7 10^3/uL (4.0-10.0)
[2018-08-17 09:53] LABS: ALBUMIN 2.9 GM/DL (3.2-5.2); ALT/SGPT 22 U/L (12-78); BILIRUBIN,TOTAL 0.5 MG/DL (0.2-1.0); BLOOD UREA NITROGEN 17 MG/DL (7-18); CALCIUM LEVEL 9.1 MG/DL (8.8-10.2); CARBON DIOXIDE LEVEL 27 MEQ/L (21-32); CHLORIDE LEVEL 109 MEQ/L (98-107); CHOLESTEROL LEVEL 110 MG/DL (<200); CHOLESTEROL RISK RATIO 2.682 (<5); CREATININE FOR GFR 0.75 MG/DL (0.70-1.30); GLOMERULAR FILTRATION RATE > 60.0 (>35); GLUCOSE, FASTING 99 MG/DL (70-100); HDL CHOLESTEROL 41 MG/DL (>40); IRON (FE) 53 UG/DL (65-175); LDL CHOLESTEROL 40 MG/DL (<100); MAGNESIUM LEVEL 2.4 MG/DL (1.8-2.4); NON-HDL-C 69 MG/DL; PERCENT SATURATION 16.4 % (19.7-50.0); POTASSIUM SERUM 4.3 MEQ/L (3.5-5.1); SODIUM LEVEL 142 MEQ/L (136-145); TOTAL IRON BINDING CAPACITY 324 UG/DL (250-450); TOTAL PROTEIN 6.3 GM/DL (6.4-8.2); TRIGLYCERIDES LEVEL 147 MG/DL (<150)
== END ==
PROVIDERS: ATTEND Nurse Practitioner Adult Health
DX: I50.9 Heart failure, unspecified (principal)

== ENCOUNTER → 2019-03-14 | Outpatient (REF) ==
[~2019-03-14] MED LIST changes: +MEMA10TA19 PO; -MEMA1TAB2 PO; +OMEP1CAP73 PO; -OMEP20CA3 PO; -OMEP40CA2 PO; +OMEP40CA97 PO
[2019-03-14 15:57] LABS: HEMATOCRIT 43.3 % (42.0-52.0); MEAN CORPUSCULAR HEMOGLOBIN 30.1 pg (27.0-33.0); MEAN CORPUSCULAR VOLUME 100.2 fl (80.0-96.0); PLATELET COUNT, AUTOMATED 181 10^3/uL (150-450); RED BLOOD COUNT 4.32 10^6/uL (4.30-6.10); WHITE BLOOD COUNT 9.4 10^3/uL (4.0-10.0)
[2019-03-14 16:24] LABS: BLOOD UREA NITROGEN 32 MG/DL (7-18); CALCIUM LEVEL 9.5 MG/DL (8.8-10.2); CARBON DIOXIDE LEVEL 26 MEQ/L (21-32); CHLORIDE LEVEL 109 MEQ/L (98-107); CREATININE FOR GFR 1.06 MG/DL (0.70-1.30); GLOMERULAR FILTRATION RATE > 60.0 (>35); GLUCOSE, FASTING 90 MG/DL (70-100); POTASSIUM SERUM 4.2 MEQ/L (3.5-5.1); SODIUM LEVEL 143 MEQ/L (136-145)
--- NOTE | 2019-03-14 16:31 | REPPI ---
Chest x-ray: Single view. History: Cough and wheezing. Comparison chest x-ray: June 09, 2017. Findings: There is moderate to marked cardiomegaly again observed. Unipolar pacemaker is seen in place. No infiltrate is seen in the lung armijo. Pleural angles are sharp. The mandible and face overlie the lung apices. Impression: Moderate to marked cardiomegaly with pacemaker. No definite infiltrate. Electronically Signed by Carlos Enrique Cantu MD 03/14/2019 04:23 P
== END ==
PROVIDERS: ATTEND Internal Medicine
DX: I51.7 Cardiomegaly (principal); R05 Cough; R06.2 Wheezing

== ENCOUNTER → 2019-03-22 | Outpatient (REF) ==
[~2019-03-22] MED LIST changes: +ACET-907 PO; +ALBU83IN INH; +ARTIDRO2 OU; +AUGM875T28 PO; +BISA10SU PR; +DEPA1TAB PO; +ENEMENE PR; +EUCECRE8 TOP; +IPRA0.00 INH; +KETO2SHA9 TOP; +LOSA50TA88 PO; +MILKSUS3 PO; +MUCI600T31 PO; +NORC1TAB7 PO; +PRED10TA2 PO; +VITA100054 PO; +XARE15TA PO; +ZOFR4TAB16 PO; +[UNRECOGNIZED DRUG - CODE] TOP
[2019-03-22 15:50] LABS: HEMATOCRIT 42.7 % (42.0-52.0); MEAN CORPUSCULAR HEMOGLOBIN 29.8 pg (27.0-33.0); MEAN CORPUSCULAR HGB CONC 30.4 g/dl (32.0-36.5); MEAN CORPUSCULAR VOLUME 97.9 fl (80.0-96.0); PLATELET COUNT, AUTOMATED 240 10^3/uL (150-450); RED BLOOD COUNT 4.36 10^6/uL (4.30-6.10); WHITE BLOOD COUNT 12.8 10^3/uL (4.0-10.0)
[2019-03-22 15:53] LABS: ALBUMIN 2.4 GM/DL (3.2-5.2); ALT/SGPT 549 U/L (12-78); BILIRUBIN,TOTAL 1.3 MG/DL (0.2-1.0); BLOOD UREA NITROGEN 37 MG/DL (7-18); CALCIUM LEVEL 9.2 MG/DL (8.8-10.2); CARBON DIOXIDE LEVEL 28 MEQ/L (21-32); CHLORIDE LEVEL 107 MEQ/L (98-107); CREATININE FOR GFR 1.09 MG/DL (0.70-1.30); GLOMERULAR FILTRATION RATE > 60.0 (>35); GLUCOSE, FASTING 189 MG/DL (70-100); POTASSIUM SERUM 4.5 MEQ/L (3.5-5.1); SODIUM LEVEL 143 MEQ/L (136-145); TOTAL PROTEIN 6.2 GM/DL (6.4-8.2)
[2019-03-22 16:12] LABS: INFLUENZA A AMPLIFICATION NEGATIVE (NEGATIVE); INFLUENZA B AMPLIFICATION NEGATIVE (NEGATIVE)
--- NOTE | 2019-03-22 16:14 | REPPI ---
Portable chest, 03:40 p.m., single AP view with the the patient semi upright: Comparison is 03/14/2019. The the patient is rotated. Cardiomegaly and mild interstitial coarsening are unchanged. There is a pacemaker, unchanged. There are no new infiltrates or pleural effusions. Impression: Cardiomegaly and mild interstitial coarsening. Pacemaker. No interval change. Electronically Signed by Peter Dominguez MD 03/22/2019 04:06 P
[2019-03-22 16:33] LABS: AMYLASE 93 U/L (25-115); LDH LACTATE DEHYDROGENASE 286 U/L (87-241)
[2019-03-23 10:11] LABS: HEPATITIS B SURFACE ANTIGEN NEGATIVE (NEGATIVE)
[2019-03-23 10:37] LABS: HEPATITIS C VIRUS ABY INDEX < 0.0 INDEX (<0.8)
[2019-03-23 10:38] LABS: HEPATITIS B CORE ANTIBODY IGM NEGATIVE (NEGATIVE)
[2019-03-23 10:40] LABS: HEPATITIS A ANTIBODY IGM NEGATIVE (NEGATIVE)
== END ==
PROVIDERS: ATTEND Internal Medicine
DX: R05 Cough (principal)

== ENCOUNTER 2019-03-23 17:06 | Emergency (ER) | payer MEDICARE ==
[~2019-03-23] VITALS: Ht 167.6 cm; Wt 85.5 kg
[~2019-03-23 17:06] MED LIST changes: -ACET-907 PO; -ALBU83IN INH; -ARTIDRO2 OU; -AUGM875T28 PO; -BISA10SU PR; -DEPA1TAB PO; -ENEMENE PR; -EUCECRE8 TOP; -IPRA0.00 INH; -KETO2SHA9 TOP; -LOSA50TA88 PO; -MILKSUS3 PO; -MUCI600T31 PO; -NORC1TAB7 PO; -PRED10TA2 PO; -VITA100054 PO; -XARE15TA PO; -ZOFR4TAB16 PO; -[UNRECOGNIZED DRUG - CODE] TOP
[2019-03-23] MEDS ORDERED: [UNRECOGNIZED DRUG - CODE] TOP (18:00)
[2019-03-23] MEDS ORDERED: IPRA0.00 INH (18:00)
[2019-03-23] MEDS ORDERED: ALBU83IN INH (18:00)
[2019-03-23] MEDS ORDERED: MUCI600T31 PO (18:00)
[2019-03-23] MEDS ORDERED: PRED10TA2 PO (18:00)
[2019-03-23] MEDS ORDERED: LOSA50TA88 PO (18:01)
[2019-03-23] MEDS ORDERED: ENEMENE PR (18:01)
[2019-03-23] MEDS ORDERED: KETO2SHA9 TOP (18:01)
[2019-03-23] MEDS ORDERED: VITA100054 PO (18:01)
[2019-03-23] MEDS ORDERED: MILKSUS3 PO (18:01)
[2019-03-23] MEDS ORDERED: ARTIDRO2 OU (18:01)
[2019-03-23] MEDS ORDERED: XARE15TA PO (18:01)
[2019-03-23] MEDS ORDERED: DEPA1TAB PO (18:01)
[2019-03-23] MEDS ORDERED: ACET-907 PO (18:01)
[2019-03-23] MEDS ORDERED: EUCECRE8 TOP (18:01)
[2019-03-23] MEDS ORDERED: BISA10SU PR (18:01)
[2019-03-23] MEDS ORDERED: NS 1,000 ML IV SCH (18:06)
[2019-03-23] MEDS ORDERED: PANTOPRAZOLE 40MG INJ (PROTONIX) (C9113) IV ONE (18:15)
[2019-03-23] MEDS ORDERED: KETOROLAC 30 MG/ML VIAL (J1885) IV ONE (18:15)
[2019-03-23 18:43] LABS: BASO % 0.2 % (0.0-1.0); HEMATOCRIT 42.2 % (42.0-52.0); HEMOGLOBIN 13.3 g/dl (13.5-17.5); LYMPH % 1.6 % (24.0-44.0); MEAN CORPUSCULAR HEMOGLOBIN 30.4 pg (27.0-33.0); MEAN CORPUSCULAR HGB CONC 31.5 g/dl (32.0-36.5); MEAN CORPUSCULAR VOLUME 96.6 fl (80.0-96.0); MONO # 0.3 10^3/uL (0.0-0.8); MONO % 2.7 % (0.0-5.0); NEUTROPHILS # 10.6 10^3/uL (1.5-8.5); NEUTROPHILS % 94.5 % (36.0-66.0); PLATELET COUNT, AUTOMATED 246 10^3/uL (150-450); RED BLOOD COUNT 4.37 10^6/uL (4.30-6.10); WHITE BLOOD COUNT 11.2 10^3/uL (4.0-10.0)
[2019-03-23 19:01] LABS: INR 1.19; PROTHROMBIN TIME 14.8 SECONDS (11.8-14.0)
[2019-03-23 19:09] LABS: LYMPH # 0.2 10^3/uL (1.5-5.0)
[2019-03-23 19:10] LABS: ALBUMIN 2.5 GM/DL (3.2-5.2); ALT/SGPT 782 U/L (12-78); BILIRUBIN,DIRECT 0.6 MG/DL (0.0-0.2); BILIRUBIN,TOTAL 0.9 MG/DL (0.2-1.0); BLOOD UREA NITROGEN 32 MG/DL (7-18); CALCIUM LEVEL 8.9 MG/DL (8.8-10.2); CARBON DIOXIDE LEVEL 29 MEQ/L (21-32); CHLORIDE LEVEL 106 MEQ/L (98-107); CREATININE FOR GFR 1.02 MG/DL (0.70-1.30); GLOMERULAR FILTRATION RATE > 60.0 (>35); GLUCOSE, FASTING 143 MG/DL (70-100); LIPASE 273 U/L (73-393); POTASSIUM SERUM 4.9 MEQ/L (3.5-5.1); SODIUM LEVEL 143 MEQ/L (136-145); TOTAL PROTEIN 6.7 GM/DL (6.4-8.2)
--- NOTE | 2019-03-23 19:35 | REPVR ---
PROCEDURE INFORMATION: Exam: US Abdomen Limited, Right Upper Quadrant Exam date and time: 03/23/2019 7:06 PM Age: 88 years old Clinical indication: Abdominal pain; Acute; Prior surgery; Surgery date: 6+ months; Surgery type: RT nephrectomy; Additional info: Ruq pain TECHNIQUE: Imaging protocol: Real-time ultrasound of the abdomen with image documentation. Examination was focused on the right upper quadrant. COMPARISON: No relevant prior studies available. FINDINGS: Liver: Normal. No masses. Gallbladder: Diffuse thickening of the gallbladder wall measuring up to 4.4 mm. No calculi demonstrated. Clinical correlation to exclude acalculous cholecystitis suggested. Common bile duct: The common bile duct measures 4 mm. No mass or choledocholithiasis. Pancreas: Pancreas obscured by overlying bowel gas. IMPRESSION: Diffuse thickening of the gallbladder wall measuring up to 4.4 mm. No calculi demonstrated. Clinical correlation to exclude acalculous cholecystitis suggested. Electronically signed by: Reji Johnson On 03/23/2019 19:35:31 PM
[2019-03-23] MEDS ORDERED: AUGM875T28 PO (20:27)
[2019-03-23] MEDS ORDERED: ZOFR4TAB16 PO (20:27)
[2019-03-23] MEDS ORDERED: NORC1TAB7 PO (20:27)
[2019-03-23] MEDS ORDERED: AUGMENTIN 875 MG TAB PO ONE (20:30)
[2019-03-23 21:03] VITALS: BP 147/75
--- NOTE | 2019-03-24 08:10 | ED PDOC ---
Post-Departure Follow-Up dr hicks faxed formal report of us for fu Laith Murcia MD Mar 24, 2019 08:10
[2019-03-28 13:53] LABS: HEPATITIS B SURFACE ANTIGEN NEGATIVE (NEGATIVE)
[2019-03-28 14:20] LABS: HEPATITIS B CORE ANTIBODY IGM NEGATIVE (NEGATIVE); HEPATITIS C VIRUS ABY INDEX < 0.0 INDEX (<0.8)
[2019-03-28 14:23] LABS: HEPATITIS A ANTIBODY IGM NEGATIVE (NEGATIVE)
== END 2019-03-23 21:11 | disposition home or self-care (01) ==
LOC: M ED 17:06
DX: B17.9 Acute viral hepatitis, unspecified (principal); K82.8 Other specified diseases of gallbladder; I11.0 Hypertensive heart disease with heart failure; J44.9 Chronic obstructive pulmonary disease, unspecified; Z85.038 Personal history of other malignant neoplasm of large intestine; Z79.52 Long term (current) use of systemic steroids; Z79.01 Long term (current) use of anticoagulants; Z79.899 Other long term (current) drug therapy
CPT/HCPCS: 76705; 80053; 82248; 83690; 85025; 85610; 86705; 86709; 86803; 87340; 96374; 99284; C9113

== ENCOUNTER → 2019-03-24 | Outpatient (CLI) | payer MEDICARE ==
[~2019-03-24] MED LIST changes: +ACET-907 PO; +ALBU83IN INH; +ARTIDRO2 OU; +AUGM875T28 PO; +BISA10SU PR; +DEPA1TAB PO; +ENEMENE PR; +EUCECRE8 TOP; +GASTROGRAFIN SOLUTION 30ML (Q9963) As Ordered ONE; +IPRA0.00 INH; +ISOVUE-370 76% 100ML VIAL (Q9967) As Ordered ONE; +KETO2SHA9 TOP; +LOSA50TA88 PO; +MILKSUS3 PO; +MUCI600T31 PO; +NORC1TAB7 PO; +PRED10TA2 PO; +VITA100054 PO; +XARE15TA PO; +ZOFR4TAB16 PO; +[UNRECOGNIZED DRUG - CODE] TOP
--- NOTE | 2019-03-24 16:34 | REP ---
CT of the abdomen and pelvis with IV and bowel contrast: Comparison is 03/18/2005. The patient has a history of renal carcinoma and a right nephrectomy. The patient has a history of colorectal carcinoma and colon resection. The visualized lung armijo demonstrate dependent atelectasis. The hepatic parenchyma is homogeneous. There is no cholelithiasis, gallbladder wall thickening or pericholecystic fluid. There are numerous surgical clips in the right renal fossa as a consequence of the nephrectomy. Whether these clips has migrated adjacent to the gallbladder tip. There is no evidence of free fluid adjacent to the gallbladder. The pancreas and spleen are unremarkable. The adrenals are unremarkable. There is renal cortical atrophy of the left kidney. There are left renal cortical cysts. There is no left renal mass or hydronephrosis. The abdominal aorta is unremarkable except for calcified atheroma. There is no periaortic mass or adenopathy. There is no bowel distension or obstruction. Pelvis: The bladder is unremarkable. There is no adenopathy or ascites. There is sigmoid diverticulosis without diverticulitis. Impression: There are multiple surgical clips in the right, bladder fossa as a consequence of nephrectomy. There is one of these clips is migrated adjacent to the tip of the gallbladder. There is no free fluid adjacent to the gallbladder. There is no cholelithiasis or biliary duct dilatation. There is no ascites. There is sigmoid diverticulosis without diverticulitis. There is left renal cortical atrophy. No bowel distension or obstruction. Electronically Signed by Peter Dominguez MD 03/24/2019 04:25 P
== END ==
LOC: M RAD 13:09
PROVIDERS: ATTEND Nurse Practitioner Adult Health
DX: K57.30 Diverticulosis of large intestine without perforation or abscess without bleeding (principal); N26.1 Atrophy of kidney (terminal); Z96.89 Presence of other specified functional implants; K81.9 Cholecystitis, unspecified
CPT/HCPCS: 74177; Q9963; Q9967

== ENCOUNTER → 2019-03-25 | Outpatient (REF) | payer MEDICARE ==
[~2019-03-25] MED LIST changes: -GASTROGRAFIN SOLUTION 30ML (Q9963) As Ordered ONE; -ISOVUE-370 76% 100ML VIAL (Q9967) As Ordered ONE
[2019-03-25 10:38] LABS: HEMATOCRIT 44.6 % (42.0-52.0); HEMOGLOBIN 13.7 g/dl (13.5-17.5); MEAN CORPUSCULAR HEMOGLOBIN 29.8 pg (27.0-33.0); MEAN CORPUSCULAR HGB CONC 30.7 g/dl (32.0-36.5); MEAN CORPUSCULAR VOLUME 97.2 fl (80.0-96.0); PLATELET COUNT, AUTOMATED 269 10^3/uL (150-450); RED BLOOD COUNT 4.59 10^6/uL (4.30-6.10); WHITE BLOOD COUNT 10.7 10^3/uL (4.0-10.0)
[2019-03-25 11:10] LABS: ALBUMIN 2.5 GM/DL (3.2-5.2); BILIRUBIN,DIRECT 0.4 MG/DL (0.0-0.2); BILIRUBIN,TOTAL 0.7 MG/DL (0.2-1.0); C REACTIVE PROTEIN QUANTITATIV 2.31 MG/DL (0.00-0.30); TOTAL PROTEIN 6.5 GM/DL (6.4-8.2)
== END ==
PROVIDERS: ATTEND Internal Medicine
DX: R94.5 Abnormal results of liver function studies (principal)

== ENCOUNTER → 2019-03-28 | Outpatient (REF) | payer MEDICARE ==
[2019-03-28 11:17] LABS: ALBUMIN 2.5 GM/DL (3.2-5.2); ALT/SGPT 225 U/L (12-78); BILIRUBIN,TOTAL 0.7 MG/DL (0.2-1.0); BLOOD UREA NITROGEN 31 MG/DL (7-18); CALCIUM LEVEL 9.5 MG/DL (8.8-10.2); CARBON DIOXIDE LEVEL 28 MEQ/L (21-32); CHLORIDE LEVEL 107 MEQ/L (98-107); CREATININE FOR GFR 1.03 MG/DL (0.70-1.30); GLOMERULAR FILTRATION RATE > 60.0 (>35); GLUCOSE, FASTING 111 MG/DL (70-100); POTASSIUM SERUM 4.1 MEQ/L (3.5-5.1); SODIUM LEVEL 141 MEQ/L (136-145); TOTAL PROTEIN 6.2 GM/DL (6.4-8.2)
== END ==
PROVIDERS: ATTEND Nurse Practitioner Adult Health
DX: R94.5 Abnormal results of liver function studies (principal); Z79.899 Other long term (current) drug therapy

== ENCOUNTER → 2019-03-29 | Outpatient (REF) | payer MEDICARE ==
[2019-03-29 10:13] LABS: HEMATOCRIT 38.6 % (42.0-52.0); HEMOGLOBIN 12.5 g/dl (13.5-17.5); MEAN CORPUSCULAR HEMOGLOBIN 30.5 pg (27.0-33.0); MEAN CORPUSCULAR HGB CONC 32.4 g/dl (32.0-36.5); MEAN CORPUSCULAR VOLUME 94.1 fl (80.0-96.0); PLATELET COUNT, AUTOMATED 255 10^3/uL (150-450)
== END ==
PROVIDERS: ATTEND Internal Medicine
DX: R11.2 Nausea with vomiting, unspecified (principal)

== ENCOUNTER → 2019-04-01 | Outpatient (REF) | payer MEDICARE ==
[2019-04-01 12:58] LABS: HEMATOCRIT 44.2 % (42.0-52.0); HEMOGLOBIN 13.4 g/dl (13.5-17.5); MEAN CORPUSCULAR HEMOGLOBIN 29.8 pg (27.0-33.0); MEAN CORPUSCULAR HGB CONC 30.3 g/dl (32.0-36.5); MEAN CORPUSCULAR VOLUME 98.4 fl (80.0-96.0); PLATELET COUNT, AUTOMATED 254 10^3/uL (150-450); RED BLOOD COUNT 4.49 10^6/uL (4.30-6.10); WHITE BLOOD COUNT 12.1 10^3/uL (4.0-10.0)
[2019-04-01 13:38] LABS: ALBUMIN 2.8 GM/DL (3.2-5.2); ALT/SGPT 691 U/L (12-78); AMYLASE 120 U/L (25-115); BILIRUBIN,TOTAL 0.9 MG/DL (0.2-1.0); BLOOD UREA NITROGEN 45 MG/DL (7-18); C REACTIVE PROTEIN QUANTITATIV 1.19 MG/DL (0.00-0.30); CALCIUM LEVEL 9.1 MG/DL (8.8-10.2); CARBON DIOXIDE LEVEL 31 MEQ/L (21-32); CHLORIDE LEVEL 104 MEQ/L (98-107); CREATININE FOR GFR 1.04 MG/DL (0.70-1.30); GLOMERULAR FILTRATION RATE > 60.0 (>35); GLUCOSE, FASTING 80 MG/DL (70-100); LIPASE 258 U/L (73-393); POTASSIUM SERUM 4.2 MEQ/L (3.5-5.1); SODIUM LEVEL 139 MEQ/L (136-145); TOTAL PROTEIN 6.6 GM/DL (6.4-8.2)
== END ==
PROVIDERS: ATTEND Internal Medicine
DX: R94.5 Abnormal results of liver function studies (principal)

== ENCOUNTER → 2019-04-04 | Outpatient (REF) | payer MEDICARE ==
[2019-04-04 10:09] LABS: HEMATOCRIT 43.1 % (42.0-52.0); HEMOGLOBIN 13.3 g/dl (13.5-17.5); MEAN CORPUSCULAR HEMOGLOBIN 30.2 pg (27.0-33.0); MEAN CORPUSCULAR HGB CONC 30.9 g/dl (32.0-36.5); PLATELET COUNT, AUTOMATED 228 10^3/uL (150-450); WHITE BLOOD COUNT 11.6 10^3/uL (4.0-10.0)
[2019-04-04 10:36] LABS: ALBUMIN 2.7 GM/DL (3.2-5.2); ALT/SGPT 275 U/L (12-78); BILIRUBIN,DIRECT 0.4 MG/DL (0.0-0.2); BILIRUBIN,TOTAL 0.9 MG/DL (0.2-1.0); BLOOD UREA NITROGEN 41 MG/DL (7-18); C REACTIVE PROTEIN QUANTITATIV 4.52 MG/DL (0.00-0.30); CALCIUM LEVEL 9.7 MG/DL (8.8-10.2); CARBON DIOXIDE LEVEL 27 MEQ/L (21-32); CHLORIDE LEVEL 103 MEQ/L (98-107); CREATININE FOR GFR 1.02 MG/DL (0.70-1.30); FERRITIN 159 NG/ML (26-388); GLOMERULAR FILTRATION RATE > 60.0 (>35); GLUCOSE, FASTING 106 MG/DL (70-100); IRON (FE) 51 UG/DL (65-175); POTASSIUM SERUM 4.2 MEQ/L (3.5-5.1); SODIUM LEVEL 138 MEQ/L (136-145); TOTAL PROTEIN 6.6 GM/DL (6.4-8.2)
[2019-04-04 14:13] LABS: APPEARANCE, URINE CLEAR (CLEAR); BACTERIA, URINE AUTO NEGATIVE (NEGATIVE); BILIRUBIN, URINE AUTO NEGATIVE (NEGATIVE); BLOOD, URINE BLOOD NEGATIVE (NEGATIVE); COLOR, URINE YELLOW (YELLOW); GLUCOSE, URINE (UA) AUTO NEGATIVE (NEGATIVE); KETONE, URINE AUTO NEGATIVE (NEGATIVE); LEUKOCYTE ESTERASE, URINE AUTO TRACE (NEGATIVE); NITRITE, URINE AUTO NEGATIVE (NEGATIVE); PROTEIN, URINE AUTO NEGATIVE (NEGATIVE); RBC, URINE AUTO 2 /HPF (0-3); SPECIFIC GRAVITY URINE AUTO 1.015 (1.002-1.035); SQUAMOUS EPITHELIAL CELL UR AU 1 /HPF (0-6); UROBILINOGEN, URINE AUTO 0.2 mg/dL (0.0-2.0); WBC, URINE AUTO 2 /HPF (0-3)
== END ==
PROVIDERS: ATTEND Internal Medicine
DX: B17.9 Acute viral hepatitis, unspecified (principal); Z79.899 Other long term (current) drug therapy

== ENCOUNTER → 2019-04-06 | Outpatient (CLI) | payer MEDICARE ==
--- NOTE | 2019-04-06 09:20 | REP ---
Abdominal right upper quadrant ultrasound for elevated liver function tests: Comparisons are the abdomen/pelvis CT dated 03/24/2019 and the gallbladder ultrasound dated 03/23/2019. The There is no cholelithiasis. There is gallbladder wall thickening measuring 3- 6 mm thickness. The gallbladder wall was also thickened on the comparison ultrasound, previously measuring up to 4.4 mm. There is no pericholecystic fluid. There is no intrahepatic biliary duct dilatation. The common biliary duct measures 6.4 mm in diameter. This is mildly dilated. On the prior study, the common biliary duct measured 4 mm diameter and was normal size. The hepatic parenchyma has a coarsened echotexture compatible with hepato steatosis. There are no hepatic masses or cysts. The pancreas is obscured by bowel gas. The right kidney is surgically absent. There is no abdominal right upper quadrant free fluid. Impression: Diffusely coarsened hepatic echotexture compatible with hepato steatosis. There are no hepatic masses. There is no cholelithiasis. Gallbladder wall is thickened. This is nonspecific and could represent fibrosis or gallbladder wall edema. There is no pericholecystic fluid. The common biliary duct is minimally dilated. There is no intrahepatic biliary duct dilatation. There is no right upper quadrant free fluid. Electronically Signed by Peter Dominguez MD 04/06/2019 09:12 A
== END ==
LOC: M RAD 08:14
PROVIDERS: ATTEND Nurse Practitioner Adult Health
DX: R94.5 Abnormal results of liver function studies (principal)

== ENCOUNTER → 2019-04-11 | Outpatient (REF) | payer MEDICARE ==
[~2019-04-11] MED LIST changes: -ARTIDRO2 OU; +POLYOPD OU
[2019-04-11 09:26] LABS: HEMOGLOBIN 13.1 g/dl (13.5-17.5); MEAN CORPUSCULAR HEMOGLOBIN 29.8 pg (27.0-33.0); MEAN CORPUSCULAR HGB CONC 30.5 g/dl (32.0-36.5); MEAN CORPUSCULAR VOLUME 97.7 fl (80.0-96.0); PLATELET COUNT, AUTOMATED 181 10^3/uL (150-450); WHITE BLOOD COUNT 7.2 10^3/uL (4.0-10.0)
[2019-04-11 09:51] LABS: ALBUMIN 2.6 GM/DL (3.2-5.2); ALT/SGPT 66 U/L (12-78); AMYLASE 96 U/L (25-115); BILIRUBIN,TOTAL 0.6 MG/DL (0.2-1.0); BLOOD UREA NITROGEN 38 MG/DL (7-18); CARBON DIOXIDE LEVEL 28 MEQ/L (21-32); CHLORIDE LEVEL 105 MEQ/L (98-107); CREATININE FOR GFR 1.15 MG/DL (0.70-1.30); GLOMERULAR FILTRATION RATE > 60.0 (>35); GLUCOSE, FASTING 84 MG/DL (70-100); LIPASE 194 U/L (73-393); POTASSIUM SERUM 4.4 MEQ/L (3.5-5.1); SODIUM LEVEL 141 MEQ/L (136-145); TOTAL PROTEIN 6.5 GM/DL (6.4-8.2)
== END ==
PROVIDERS: ATTEND Internal Medicine
DX: R94.5 Abnormal results of liver function studies (principal)

== ENCOUNTER → 2019-04-13 | Outpatient (CLI) | payer MEDICARE ==
--- NOTE | 2019-04-13 11:49 | REP ---
Hepatobiliary scan and gallbladder ejection fraction: History: Acute cholecystitis. Technique: 6.6 mCi of technetium-99m mebrofenin was injected and sequential anterior images are acquired. 65 minutes after the mebrofenin injection, the patient consumed 8 ounces Ensure and an additional 60 minutes of imaging was acquired. Regions of interest are plotted around the gallbladder. Findings: The initial hepatocellular parenchymal uptake phase is normal and homogeneous. Intra- and extra-hepatic bile ducts are labeled by the 15 -minute image. The gallbladder is first labeled on the 45 -minute image. There is normal washout from the liver parenchyma into the gallbladder and small intestine on subsequent images. The gallbladder ejection fraction is 43 %. Values greater than 35 % are considered normal with this technique. Impression: Normal hepatobiliary scan and normal gallbladder ejection fraction. Electronically Signed by Carlos Enrique Cantu MD 04/13/2019 11:41 A
== END ==
LOC: M RAD 08:22
PROVIDERS: ATTEND Nurse Practitioner Adult Health
DX: K81.0 Acute cholecystitis (principal)
CPT/HCPCS: 78227; A9537; J2805

== ENCOUNTER → 2019-04-19 | Outpatient (REF) | payer MEDICARE ==
[2019-04-19 13:07] LABS: ALBUMIN 2.8 GM/DL (3.2-5.2); ALT/SGPT 45 U/L (12-78); BILIRUBIN,DIRECT 0.2 MG/DL (0.0-0.2); BILIRUBIN,TOTAL 0.5 MG/DL (0.2-1.0); IRON (FE) 47 UG/DL (65-175); PERCENT SATURATION 13.5 % (19.7-50.0); TOTAL IRON BINDING CAPACITY 349 UG/DL (250-450); TOTAL PROTEIN 7.1 GM/DL (6.4-8.2)
[2019-04-20 09:20] LABS: HEPATITIS B SURFACE ANTIGEN NEGATIVE (NEGATIVE)
[2019-04-20 09:47] LABS: HEPATITIS B CORE ANTIBODY IGM NEGATIVE (NEGATIVE)
[2019-04-20 09:49] LABS: HEPATITIS A ANTIBODY IGM NEGATIVE (NEGATIVE)
== END ==
PROVIDERS: ATTEND Internal Medicine
DX: R94.5 Abnormal results of liver function studies (principal)

== ENCOUNTER → 2019-04-27 | Outpatient (REF) | payer MEDICARE ==
[2019-04-27 09:47] LABS: HEMATOCRIT 40.8 % (42.0-52.0); HEMOGLOBIN 12.6 g/dl (13.5-17.5); MEAN CORPUSCULAR HEMOGLOBIN 29.4 pg (27.0-33.0); MEAN CORPUSCULAR HGB CONC 30.9 g/dl (32.0-36.5); MEAN CORPUSCULAR VOLUME 95.3 fl (80.0-96.0); PLATELET COUNT, AUTOMATED 298 10^3/uL (150-450); RED BLOOD COUNT 4.28 10^6/uL (4.30-6.10); WHITE BLOOD COUNT 7.1 10^3/uL (4.0-10.0)
[2019-04-27 10:32] LABS: ALBUMIN 2.7 GM/DL (3.2-5.2); ALT/SGPT 21 U/L (12-78); AMYLASE 120 U/L (25-115); BILIRUBIN,DIRECT 0.2 MG/DL (0.0-0.2); BILIRUBIN,TOTAL 0.5 MG/DL (0.2-1.0); BLOOD UREA NITROGEN 32 MG/DL (7-18); C REACTIVE PROTEIN QUANTITATIV 2.81 MG/DL (0.00-0.30); CALCIUM LEVEL 9.9 MG/DL (8.8-10.2); CARBON DIOXIDE LEVEL 27 MEQ/L (21-32); CHLORIDE LEVEL 106 MEQ/L (98-107); CREATININE FOR GFR 0.98 MG/DL (0.70-1.30); GLOMERULAR FILTRATION RATE > 60.0 (>35); GLUCOSE, FASTING 80 MG/DL (70-100); LIPASE 215 U/L (73-393); POTASSIUM SERUM 4.5 MEQ/L (3.5-5.1); SODIUM LEVEL 140 MEQ/L (136-145); TOTAL PROTEIN 6.6 GM/DL (6.4-8.2)
== END ==
PROVIDERS: ATTEND Nurse Practitioner Adult Health
DX: Z79.899 Other long term (current) drug therapy (principal)

== ENCOUNTER → 2019-05-24 | Outpatient (REF) | payer MEDICARE ==
[2019-05-24 10:03] LABS: HEMATOCRIT 43.8 % (42.0-52.0); HEMOGLOBIN 13.5 g/dl (13.5-17.5); MEAN CORPUSCULAR HEMOGLOBIN 29.2 pg (27.0-33.0); MEAN CORPUSCULAR HGB CONC 30.8 g/dl (32.0-36.5); MEAN CORPUSCULAR VOLUME 94.8 fl (80.0-96.0); PLATELET COUNT, AUTOMATED 198 10^3/uL (150-450); RED BLOOD COUNT 4.62 10^6/uL (4.30-6.10); WHITE BLOOD COUNT 7.6 10^3/uL (4.0-10.0)
[2019-05-24 10:43] LABS: ALBUMIN 2.9 GM/DL (3.2-5.2); BILIRUBIN,TOTAL 0.7 MG/DL (0.2-1.0); C REACTIVE PROTEIN QUANTITATIV 1.73 MG/DL (0.00-0.30); CALCIUM LEVEL 9.9 MG/DL (8.8-10.2); CREATININE FOR GFR 1.24 MG/DL (0.70-1.30); GLOMERULAR FILTRATION RATE 58.6 (>35); POTASSIUM SERUM 4.2 MEQ/L (3.5-5.1); TOTAL PROTEIN 6.8 GM/DL (6.4-8.2)
== END ==
PROVIDERS: ATTEND Nurse Practitioner Adult Health
DX: D64.9 Anemia, unspecified (principal)

== ENCOUNTER → 2019-06-05 | Outpatient (REF) | payer MEDICARE, MEDICAID ==
[2019-06-05 18:43] LABS: HEMOGLOBIN 13.7 g/dl (13.5-17.5); MEAN CORPUSCULAR HEMOGLOBIN 29.1 pg (27.0-33.0); MEAN CORPUSCULAR HGB CONC 31.1 g/dl (32.0-36.5); MEAN CORPUSCULAR VOLUME 93.4 fl (80.0-96.0); PLATELET COUNT, AUTOMATED 218 10^3/uL (150-450); RED BLOOD COUNT 4.71 10^6/uL (4.30-6.10); WHITE BLOOD COUNT 11.8 10^3/uL (4.0-10.0)
[2019-06-05 18:48] LABS: ALT/SGPT 22 U/L (12-78); BILIRUBIN,TOTAL 0.4 MG/DL (0.2-1.0); BLOOD UREA NITROGEN 42 MG/DL (7-18); CALCIUM LEVEL 10.3 MG/DL (8.8-10.2); CARBON DIOXIDE LEVEL 26 MEQ/L (21-32); CHLORIDE LEVEL 106 MEQ/L (98-107); CREATININE FOR GFR 1.16 MG/DL (0.70-1.30); GLOMERULAR FILTRATION RATE > 60.0 (>35); GLUCOSE, FASTING 103 MG/DL (70-100); POTASSIUM SERUM 4.6 MEQ/L (3.5-5.1); SODIUM LEVEL 139 MEQ/L (136-145)
== END ==
PROVIDERS: ATTEND Internal Medicine
DX: K92.2 Gastrointestinal hemorrhage, unspecified (principal)

== ENCOUNTER → 2019-06-07 | Outpatient (REF) | payer MEDICARE, MEDICAID ==
[2019-06-07 15:35] LABS: HEMATOCRIT 45.8 % (42.0-52.0); HEMOGLOBIN 14.2 g/dl (13.5-17.5); MEAN CORPUSCULAR HEMOGLOBIN 29.8 pg (27.0-33.0); PLATELET COUNT, AUTOMATED 224 10^3/uL (150-450); RED BLOOD COUNT 4.77 10^6/uL (4.30-6.10); WHITE BLOOD COUNT 8.2 10^3/uL (4.0-10.0)
[2019-06-07 15:58] LABS: ALBUMIN 2.9 GM/DL (3.2-5.2); ALT/SGPT 32 U/L (12-78); BILIRUBIN,TOTAL 0.4 MG/DL (0.2-1.0); BLOOD UREA NITROGEN 34 MG/DL (7-18); CALCIUM LEVEL 9.9 MG/DL (8.8-10.2); CARBON DIOXIDE LEVEL 29 MEQ/L (21-32); CHLORIDE LEVEL 107 MEQ/L (98-107); GLOMERULAR FILTRATION RATE > 60.0 (>35); GLUCOSE, FASTING 104 MG/DL (70-100); POTASSIUM SERUM 4.6 MEQ/L (3.5-5.1); SODIUM LEVEL 140 MEQ/L (136-145); TOTAL PROTEIN 7.1 GM/DL (6.4-8.2)
== END ==
PROVIDERS: ATTEND Internal Medicine
DX: R94.5 Abnormal results of liver function studies (principal)

== ENCOUNTER → 2019-06-08 | Outpatient (REF) | payer MEDICARE, MEDICAID ==
--- NOTE | 2019-06-08 10:35 | REPPI ---
KUB ABDOMEN AND PELVIS: KUB film of abdomen and pelvis is performed. Bowel gas pattern is normal with no evidence of bowel obstruction. There is mild scattered fecal material throughout the colon. Metallic clips are seen in the upper abdomen. Scattered vascular calcifications are present. There are mild degenerative changes of the spine. IMPRESSION: No acute findings. Electronically Signed by Peter Johnson MD 06/08/2019 11:34 A
== END ==
PROVIDERS: ATTEND Internal Medicine
DX: K62.5 Hemorrhage of anus and rectum (principal)

== ENCOUNTER → 2019-07-11 | Outpatient (REF) | payer MEDICARE, MEDICAID ==
[2019-07-11 10:02] LABS: HEMOGLOBIN 13.4 g/dl (13.5-17.5); MEAN CORPUSCULAR HEMOGLOBIN 28.9 pg (27.0-33.0); MEAN CORPUSCULAR HGB CONC 31.2 g/dl (32.0-36.5); MEAN CORPUSCULAR VOLUME 92.9 fl (80.0-96.0); PLATELET COUNT, AUTOMATED 267 10^3/uL (150-450); RED BLOOD COUNT 4.63 10^6/uL (4.30-6.10); WHITE BLOOD COUNT 7.3 10^3/uL (4.0-10.0)
== END ==
PROVIDERS: ATTEND Nurse Practitioner Adult Health
DX: I48.91 Unspecified atrial fibrillation (principal)

== ENCOUNTER → 2019-07-19 | Outpatient (REF) | PROVIDERS: ATTEND Internal Medicine | DX: Z03.818 Encounter for observation for suspected exposure to other biological agents ruled out (principal) ==

== ENCOUNTER → 2019-07-20 | Outpatient (REF) | payer MEDICARE, MEDICAID ==
[~2019-07-20] MED LIST changes: +ASPI-546 PO; -ASPI1TAB15 PO; +ESCI10TA16 PO; -ESCI10TA2 PO; +ISOS1TAB35 PO; -ISOS30TA4 PO; +KETO2SHA8 TOP; -KETO2SHA9 TOP; -MAG400TA PO; +MAGN400T35 PO
[2019-07-20 11:35] LABS: HEMATOCRIT 42.8 % (42.0-52.0); HEMOGLOBIN 12.9 g/dl (13.5-17.5); MEAN CORPUSCULAR HEMOGLOBIN 27.6 pg (27.0-33.0); MEAN CORPUSCULAR HGB CONC 30.1 g/dl (32.0-36.5); MEAN CORPUSCULAR VOLUME 91.6 fl (80.0-96.0); PLATELET COUNT, AUTOMATED 245 10^3/uL (150-450); RED BLOOD COUNT 4.67 10^6/uL (4.30-6.10); WHITE BLOOD COUNT 9.5 10^3/uL (4.0-10.0)
[2019-07-20 11:46] LABS: INR 1.23; PROTHROMBIN TIME 15.2 SECONDS (11.8-14.0)
[2019-07-20 11:47] LABS: PARTIAL THROMBOPLASTIN TIME 33.5 SECONDS (25.0-38.4)
[2019-07-20 12:04] LABS: ALBUMIN 2.8 GM/DL (3.2-5.2); ALT/SGPT 22 U/L (12-78); AMYLASE 106 U/L (25-115); BILIRUBIN,TOTAL 0.4 MG/DL (0.2-1.0); BLOOD UREA NITROGEN 27 MG/DL (7-18); CARBON DIOXIDE LEVEL 30 MEQ/L (21-32); CHLORIDE LEVEL 107 MEQ/L (98-107); CREATININE FOR GFR 0.82 MG/DL (0.70-1.30); GLOMERULAR FILTRATION RATE > 60.0 (>35); GLUCOSE, FASTING 68 MG/DL (70-100); LIPASE 256 U/L (73-393); POTASSIUM SERUM 4.2 MEQ/L (3.5-5.1); PROSTATIC SPECIFIC AG MONITOR 0.42 NG/ML (< 4.00); SODIUM LEVEL 144 MEQ/L (136-145); TOTAL PROTEIN 6.9 GM/DL (6.4-8.2)
[2019-07-22 11:06] LABS: CA19-9 TUMOR MARKER,CARBOHYDRA 5.5 U/ML (<35.0)
== END ==
PROVIDERS: ATTEND Internal Medicine
DX: K62.5 Hemorrhage of anus and rectum (principal); R63.4 Abnormal weight loss; Z12.5 Encounter for screening for malignant neoplasm of prostate; N40.0 Benign prostatic hyperplasia without lower urinary tract symptoms; Z85.038 Personal history of other malignant neoplasm of large intestine; Z87.448 Personal history of other diseases of urinary system; Z85.09 Personal history of malignant neoplasm of other digestive organs

== ENCOUNTER → 2019-07-29 | Outpatient (REF) | payer MEDICARE, MEDICAID ==
[~2019-07-29] MED LIST changes: -ASPI-546 PO; +ASPI1TAB15 PO; -ESCI10TA16 PO; +ESCI10TA2 PO; -ISOS1TAB35 PO; +ISOS30TA4 PO; -KETO2SHA8 TOP; +KETO2SHA9 TOP; +MAG400TA PO; -MAGN400T35 PO
[2019-07-29 12:42] LABS: BASO % 0.3 % (0.0-1.0); EOS # 0.2 10^3/uL (0.0-0.5); EOS % 2.9 % (0.0-3.0); HEMATOCRIT 39.4 % (42.0-52.0); HEMOGLOBIN 12.2 g/dl (13.5-17.5); LYMPH # 0.6 10^3/uL (1.5-5.0); LYMPH % 7.6 % (24.0-44.0); MEAN CORPUSCULAR HEMOGLOBIN 27.8 pg (27.0-33.0); MEAN CORPUSCULAR VOLUME 89.7 fl (80.0-96.0); MONO # 0.8 10^3/uL (0.0-0.8); MONO % 10.4 % (0.0-5.0); NEUTROPHILS # 5.7 10^3/uL (1.5-8.5); NEUTROPHILS % 78.1 % (36.0-66.0); PLATELET COUNT, AUTOMATED 228 10^3/uL (150-450); RED BLOOD COUNT 4.39 10^6/uL (4.30-6.10); WHITE BLOOD COUNT 7.2 10^3/uL (4.0-10.0)
[2019-07-29 13:01] LABS: ALBUMIN 2.3 GM/DL (3.2-5.2); ALT/SGPT 20 U/L (12-78); BILIRUBIN,TOTAL 0.3 MG/DL (0.2-1.0); BLOOD UREA NITROGEN 26 MG/DL (7-18); CALCIUM LEVEL 9.5 MG/DL (8.8-10.2); CARBON DIOXIDE LEVEL 26 MEQ/L (21-32); CHLORIDE LEVEL 110 MEQ/L (98-107); CREATININE FOR GFR 0.74 MG/DL (0.70-1.30); GLOMERULAR FILTRATION RATE > 60.0 (>35); GLUCOSE, FASTING 93 MG/DL (70-100); NT-PRO BNP 1735 PG/ML (<450); POTASSIUM SERUM 4.3 MEQ/L (3.5-5.1); SODIUM LEVEL 144 MEQ/L (136-145); TOTAL PROTEIN 6.3 GM/DL (6.4-8.2)
--- NOTE | 2019-07-30 10:03 | REPPI ---
AP CHEST X-RAY: SINGLE VIEW. HISTORY: Lethargy. Abnormal lung sounds. Comparison chest x-ray, March 14, 2019 and March 22, 2019. FINDINGS: There is moderate cardiac enlargement. A unipolar pacemaker is seen in the right heart via the left side. There is soft tissue fullness in the apex of the right lung, question apical lung nodule. No definite infiltrate is seen. The left hemidiaphragm is obscured, question left pleural effusion. Pulmonary vasculature is not increased. IMPRESSION: Findings consistent with left pleural effusion. Cardiomegaly is observed with pacemaker. There is soft tissue fullness in the apex of the right lung and I cannot exclude an apical lung mass or nodule. Electronically Signed by Carlos Enrique Cantu MD 07/31/2019 07:41 P
== END ==
PROVIDERS: ATTEND Internal Medicine
DX: R53.83 Other fatigue (principal); R06.89 Other abnormalities of breathing

== ENCOUNTER → 2019-08-01 | Outpatient (CLI) | payer MEDICARE, MEDICAID ==
[~2019-08-01] MED LIST changes: +ISOVUE-370 76% 100ML VIAL As Ordered ONE; +KETO2SHA8 TOP; -KETO2SHA9 TOP
--- NOTE | 2019-08-01 14:48 | REP ---
REASON: Suspect effusion. No prior chest CTs for comparison. Lung base images obtained during abdominal CT 03/24/2019 have been reviewed. CONTRAST: 100 mL Isovue 370. There is no mediastinal or hilar adenopathy. There is a sight pericardial effusion. This is unchanged compared to the lung base images of 03/24/2019. There is no pleural effusion. The imaged upper abdomen shows bilateral adrenal gland nodular thickening. There are no precontrast enhanced images to review. The imaged osseous structures show chronic changes consistent with patient's age. There is four-chamber cardiac enlargement. Evaluation of the lung armijo shows respiratory motion artifact obscuring the detail. Scattered asymmetric densities are seen throughout the lung armijo with bibasilar predominance. There is cylindrical and early varicoid bronchiectasis bilaterally. Small biapical pleural blebs are noted with small biapical and mid lung zone parenchymal bulla. There is evidence of bilateral dependent subsegmental atelectatic change. IMPRESSION: 1. There is a slight pericardial effusion. 2. There is four-chamber cardiac enlargement. 3. Chronic lung field changes as described above, however, since there are no priors for comparison, consider followup. 4. Other findings and limitations as described above. The bilateral adrenal gland thickening should be re-evaluated on the noncontrast enhanced adrenal CT to assess the Hounsfield densities if clinically relevant. Electronically Signed by Burke Whitmore DO 08/01/2019 05:13 P
== END ==
LOC: M RAD 12:42
PROVIDERS: ATTEND Nurse Practitioner Adult Health
DX: R91.8 Other nonspecific abnormal finding of lung field (principal); J90 Pleural effusion, not elsewhere classified
CPT/HCPCS: 71260; Q9967

== ENCOUNTER → 2019-08-09 | Outpatient (REF) | payer MEDICARE, MEDICAID ==
[~2019-08-09] MED LIST changes: -ISOVUE-370 76% 100ML VIAL As Ordered ONE
[2019-08-09 11:16] LABS: HEMATOCRIT 48.1 % (42.0-52.0); HEMOGLOBIN 14.9 g/dl (13.5-17.5); MEAN CORPUSCULAR HEMOGLOBIN 28.2 pg (27.0-33.0); MEAN CORPUSCULAR VOLUME 90.9 fl (80.0-96.0); PLATELET COUNT, AUTOMATED 260 10^3/uL (150-450); RED BLOOD COUNT 5.29 10^6/uL (4.30-6.10); WHITE BLOOD COUNT 10.8 10^3/uL (4.0-10.0)
[2019-08-09 11:43] LABS: ALBUMIN 2.9 GM/DL (3.2-5.2); ALT/SGPT 31 U/L (12-78); BILIRUBIN,TOTAL 0.7 MG/DL (0.2-1.0); BLOOD UREA NITROGEN 30 MG/DL (7-18); CALCIUM LEVEL 10.2 MG/DL (8.8-10.2); CARBON DIOXIDE LEVEL 30 MEQ/L (21-32); CHLORIDE LEVEL 104 MEQ/L (98-107); CREATININE FOR GFR 0.96 MG/DL (0.70-1.30); GLOMERULAR FILTRATION RATE > 60.0 (>35); GLUCOSE, FASTING 99 MG/DL (70-100); NT-PRO BNP 1186 PG/ML (<450); SODIUM LEVEL 141 MEQ/L (136-145); TOTAL PROTEIN 7.3 GM/DL (6.4-8.2)
--- NOTE | 2019-08-09 16:12 | REPPI ---
CHEST, SINGLE VIEW: Single view of the chest is performed and compared to prior study 07/29/2019. Cardiac silhouette is again prominent, unchanged. Mediastinal silhouette is unchanged. Left single-lead pacemaker is unchanged. There are prominent interstitial markings in the lung bases, as seen on prior study. IMPRESSION: Stable exam. Electronically Signed by Peter Johnson MD 08/11/2019 12:52 A
== END ==
PROVIDERS: ATTEND Internal Medicine
DX: R06.02 Shortness of breath (principal); R41.82 Altered mental status, unspecified; I31.3 Pericardial effusion (noninflammatory)

== ENCOUNTER → 2019-08-12 | Outpatient (CLI) | payer MEDICARE, MEDICAID ==
[~2019-08-12] MED LIST changes: +ISOVUE-370 76% 100ML VIAL As Ordered ONE
--- NOTE | 2019-08-12 16:06 | REP ---
CT ABDOMEN AND PELVIS WITH IV CONTRAST: TECHNIQUE: Axial contrast-enhanced images from the lung bases to the pubic symphysis using 100 mL Isovue-370 intravenous contrast material with multiplanar reformations. Visualized lung bases demonstrate coarsened interstitial markings, unchanged since recent CT of the chest, 08/01/2019. The liver demonstrates no mass. The gallbladder is collapsed. Spleen demonstrates multiple calcified granulomas. Adrenal glands demonstrate bilateral adenomas, unchanged since prior CT 03/24/2019. Pancreas demonstrates no mass. The patient has had a prior right nephrectomy with multiple metallic clips in that region and no recurrent mass in the right renal fossa. The left kidney demonstrates cortical scarring with no hydronephrosis. There is a cyst anteriorly measuring 2.5 cm in diameter. There is moderate atherosclerotic calcification of the abdominal aorta without aneurysm. There is high-grade stenosis of the left common iliac artery. There is no adenopathy. There is no free air or free fluid. There is no bowel wall thickening. The patient has had a prior right hemicolectomy. There are scattered diverticula of the colon. There is no acute diverticulitis. There is no pelvic mass. Urinary bladder is mildly distended and grossly unremarkable. There is no evidence of bowel obstruction. There are degenerative changes of the spine. There is a small left inguinal hernia containing fat. There is metallic internal fixation of the proximal right femur. IMPRESSION: No acute findings in the abdomen or pelvis. No evidence of bowel obstruction or inflammation. The patient is status post right hemicolectomy. Scattered diverticula of the colon with no acute diverticulitis. No free air or free fluid. Electronically Signed by Peter Johnson MD 08/16/2019 06:38 P
== END ==
LOC: M RAD 14:25
PROVIDERS: ATTEND Nurse Practitioner Adult Health
DX: R10.9 Unspecified abdominal pain (principal)
CPT/HCPCS: 74177; Q9967

== ENCOUNTER → 2019-08-15 | Outpatient (REF) | payer MEDICARE, MEDICAID ==
[~2019-08-15] MED LIST changes: -ISOVUE-370 76% 100ML VIAL As Ordered ONE
[2019-08-15 13:53] LABS: HEMATOCRIT 49.6 % (42.0-52.0); MEAN CORPUSCULAR HEMOGLOBIN 28.1 pg (27.0-33.0); MEAN CORPUSCULAR HGB CONC 30.2 g/dl (32.0-36.5); MEAN CORPUSCULAR VOLUME 92.9 fl (80.0-96.0); PLATELET COUNT, AUTOMATED 240 10^3/uL (150-450); RED BLOOD COUNT 5.34 10^6/uL (4.30-6.10); WHITE BLOOD COUNT 8.2 10^3/uL (4.0-10.0)
[2019-08-15 14:32] LABS: ALBUMIN 2.8 GM/DL (3.2-5.2); ALT/SGPT 24 U/L (12-78); BILIRUBIN,TOTAL 0.5 MG/DL (0.2-1.0); BLOOD UREA NITROGEN 32 MG/DL (7-18); CALCIUM LEVEL 10.6 MG/DL (8.8-10.2); CARBON DIOXIDE LEVEL 26 MEQ/L (21-32); CHLORIDE LEVEL 107 MEQ/L (98-107); CHOLESTEROL LEVEL 201 MG/DL (<200); CHOLESTEROL RISK RATIO 5.432 (<5); CREATININE FOR GFR 1.01 MG/DL (0.70-1.30); GLOMERULAR FILTRATION RATE > 60.0 (>35); GLUCOSE, FASTING 133 MG/DL (70-100); HDL CHOLESTEROL 37 MG/DL (>40); IRON (FE) 52 UG/DL (65-175); LDL CHOLESTEROL 133 MG/DL (<100); MAGNESIUM LEVEL 2.8 MG/DL (1.8-2.4); NON-HDL-C 164 MG/DL; PERCENT SATURATION 14.4 % (19.7-50.0); POTASSIUM SERUM 3.9 MEQ/L (3.5-5.1); SODIUM LEVEL 144 MEQ/L (136-145); TOTAL IRON BINDING CAPACITY 362 UG/DL (250-450); TRIGLYCERIDES LEVEL 154 MG/DL (<150)
== END ==
PROVIDERS: ATTEND Nurse Practitioner Adult Health
DX: I25.10 Atherosclerotic heart disease of native coronary artery without angina pectoris (principal); I50.9 Heart failure, unspecified